=== PATIENT | male | born 1940 | race Caucasian/White ===

== ENCOUNTER → 2017-04-16 | Outpatient (CLI) | payer MEDICARE ==
[~2017-04-16] MED LIST: ALLO300T2 PO; ALLP100T PO; AMLO5TAB2; AMLO5TAB2 PO; ATEN1TAB46; ATEN25TA PO; CALC-80 PO; CEPH-507 PO; CEPH500C PO; CIPR-225 PO; CIPR1DRO2 OT; COLC0.6T53; CYAN10007 PO; CYCL-97 PO; FAMO20TA27 PO; HYDR-34; NAPR-243 PO; OMEP20CA12 PO; PANT40TA2 PO; RIVA10TA PO; TRAM50TA2 PO
[2017-04-16 10:46] LABS: BASOPHILS % (AUTO) 0 % (0-10); EOSINOPHILS # (AUTO) 0.2 10^3/uL (0.0-0.3); EOSINOPHILS % (AUTO) 2 % (0-10); LYMPHOCYTES # (AUTO) 2.1 X 10^3 (1.0-4.0); LYMPHOCYTES % (AUTO) 20 % (12-44); MEAN CORPUSCULAR HEMOGLOBIN 25 PG (25-34); MEAN CORPUSCULAR HGB CONC 29 G/DL (32-36); MEAN CORPUSCULAR VOLUME 87 FL (80-99); MEAN PLATELET VOLUME 9.1 FL (7.4-10.4); MONOCYTES # (AUTO) 0.9 X 10^3 (0.0-1.0); MONOCYTES % (AUTO) 8 % (0-12); NEUTROPHILS # (AUTO) 7.7 X 10^3 (1.8-7.8); NEUTROPHILS % (AUTO) 71 % (42-75); PLATELET COUNT 299 10^3/uL (130-400); RED CELL DISTRIBUTION WIDTH 18.5 % (10.0-14.5); RETICULOCYTE % 1.16 % (0.50-2.40); WHITE BLOOD COUNT 10.8 10^3/uL (4.3-11.0)
[2017-04-16 11:19] LABS: ANISOCYTOSIS MODERATE; BAND NEUTROPHILS 1 %; BASOPHILS % (MANUAL) 0 %; EOSINOPHILS % (MANUAL) 0 %; LYMPHOCYTES % (MANUAL) 19 %; NEUTROPHILS % (MANUAL) 76 %
[2017-04-18 08:01] LABS: %SAT TOTAL IRON BINDING CAPIC 11 L % (15-50); FOLIC ACID 6.9 NG/ML (1.5-24.0); TIBC 303 UG/DL (280-380); UIBC 269 UG/DL
== END ==
LOC: LAB 10:24
PROVIDERS: ATTEND Family Medicine
DX: D64.9 Anemia, unspecified (principal)
CPT/HCPCS: 36415; 85007; 85045

== ENCOUNTER → 2017-08-06 | Outpatient (CLI) | payer MEDICARE ==
[2017-08-06 15:23] LABS: BASOPHILS % (AUTO) 0 % (0-10); EOSINOPHILS # (AUTO) 0.1 10^3/uL (0.0-0.3); EOSINOPHILS % (AUTO) 1 % (0-10); LYMPHOCYTES # (AUTO) 1.5 X 10^3 (1.0-4.0); LYMPHOCYTES % (AUTO) 22 % (12-44); MEAN CORPUSCULAR HEMOGLOBIN 27 PG (25-34); MEAN CORPUSCULAR HGB CONC 29 G/DL (32-36); MEAN CORPUSCULAR VOLUME 91 FL (80-99); MEAN PLATELET VOLUME 10.3 FL (7.4-10.4); MONOCYTES # (AUTO) 0.7 X 10^3 (0.0-1.0); MONOCYTES % (AUTO) 11 % (0-12); NEUTROPHILS # (AUTO) 4.3 X 10^3 (1.8-7.8); NEUTROPHILS % (AUTO) 66 % (42-75); RED BLOOD COUNT 3.21 10^6/uL (4.35-5.85); RED CELL DISTRIBUTION WIDTH 18.3 % (10.0-14.5); WHITE BLOOD COUNT 6.5 10^3/uL (4.3-11.0)
[2017-08-06 15:31] LABS: PLATELET COUNT 27 10^3/uL (130-400)
== END ==
LOC: LAB 14:55
PROVIDERS: ATTEND Family Medicine
DX: D69.6 Thrombocytopenia, unspecified (principal)
CPT/HCPCS: 36415; 85025

== ENCOUNTER 2017-08-08 12:47 | Outpatient (RCR) | payer MEDICARE ==
[2017-08-02 14:59] LABS: BASOPHILS % (AUTO) 0 % (0-10); EOSINOPHILS % (AUTO) 0 % (0-10); LYMPHOCYTES # (AUTO) 1.2 X 10^3 (1.0-4.0); LYMPHOCYTES % (AUTO) 14 % (12-44); MEAN CORPUSCULAR HEMOGLOBIN 26 PG (25-34); MEAN CORPUSCULAR HGB CONC 29 G/DL (32-36); MEAN CORPUSCULAR VOLUME 89 FL (80-99); MEAN PLATELET VOLUME 10.6 FL (7.4-10.4); MONOCYTES # (AUTO) 0.7 X 10^3 (0.0-1.0); MONOCYTES % (AUTO) 8 % (0-12); NEUTROPHILS # (AUTO) 6.4 X 10^3 (1.8-7.8); NEUTROPHILS % (AUTO) 77 % (42-75); RED CELL DISTRIBUTION WIDTH 18.4 % (10.0-14.5); RETICULOCYTE % 1.68 % (0.50-2.40); WHITE BLOOD COUNT 8.3 10^3/uL (4.3-11.0)
[2017-08-02 15:02] LABS: PLATELET COUNT 27 10^3/uL (130-400)
[2017-08-02 15:19] LABS: BAND NEUTROPHILS 0 %; LYMPHOCYTES % (MANUAL) 12 %; NEUTROPHILS % (MANUAL) 83 %
[2017-08-02 15:20] LABS: ANISOCYTOSIS MARKED; BASOPHILS % (MANUAL) 0 %; EOSINOPHILS % (MANUAL) 0 %
[2017-08-02 15:27] LABS: ALANINE AMINOTRANSFERASE 9 U/L (0-55); ALBUMIN 3.4 GM/DL (3.2-4.5); ANION GAP 11 MMOL/L (5-14); ASPARTATE AMINO TRANSFERASE 16 U/L (5-34); BILIRUBIN,TOTAL 0.7 MG/DL (0.1-1.0); BLOOD UREA NITROGEN 19 MG/DL (7-18); BUN/CREATININE RATIO 17; CALCIUM 10.1 MG/DL (8.5-10.1); CARBON DIOXIDE 24 MMOL/L (21-32); CHLORIDE 103 MMOL/L (98-107); CREATININE SERUM 1.12 MG/DL (0.60-1.30); GFR ESTIMATED > 60; GLUCOSE 110 MG/DL (70-105); LACTATE DEHYDROGENASE 175 U/L (125-220); POTASSIUM 4.6 MMOL/L (3.6-5.0); SODIUM 138 MMOL/L (135-145); TOTAL PROTEIN 9.8 GM/DL (6.4-8.2)
[2017-08-02 16:05] LABS: PEP REPORT SEE PATH REPORT
[2017-08-03 02:35] LABS: LIGHT CHAIN KAPPA SERUM QUANT 14.26 mg/L (3.30-19.40); LIGHT CHAIN LAMBDA SERUM QUANT 8.78 mg/L (5.71-26.30)
[2017-08-03 07:08] LABS: IMMUNOGLOBULIN IGA 528 mg/dL (71-263); IMMUNOGLOBULIN IGG 810 mg/dL (672-1680)
[2017-08-03 10:09] LABS: IMMUNOGLOBULIN IGM 6820 mg/dL (47-209)
[2017-08-08 08:09] LABS: CLIN PATHOLOGY REPORT FOOTNOTE; SERUM PROTEIN ELEC DETAIL L-17-0011867
[2017-08-08 08:13] LABS: IMMUNOFIX PATH REPORT NUMBER Complete (Complete)
[2017-08-08 13:11] LABS: BASOPHILS % (AUTO) 0 % (0-10); EOSINOPHILS % (AUTO) 0 % (0-10); LYMPHOCYTES # (AUTO) 1.7 X 10^3 (1.0-4.0); LYMPHOCYTES % (AUTO) 24 % (12-44); MEAN CORPUSCULAR HEMOGLOBIN 26 PG (25-34); MEAN CORPUSCULAR HGB CONC 29 G/DL (32-36); MEAN CORPUSCULAR VOLUME 91 FL (80-99); MONOCYTES # (AUTO) 0.7 X 10^3 (0.0-1.0); MONOCYTES % (AUTO) 10 % (0-12); NEUTROPHILS # (AUTO) 4.6 X 10^3 (1.8-7.8); NEUTROPHILS % (AUTO) 66 % (42-75); RED BLOOD COUNT 3.22 10^6/uL (4.35-5.85); RED CELL DISTRIBUTION WIDTH 18.3 % (10.0-14.5); RETICULOCYTE % 1.86 % (0.50-2.40); WHITE BLOOD COUNT 7.1 10^3/uL (4.3-11.0)
[2017-08-08 13:16] LABS: PLATELET COUNT 26 10^3/uL (130-400)
[2017-08-08 13:40] LABS: ANISOCYTOSIS SLIGHT; BAND NEUTROPHILS 0 %; BASOPHILS % (MANUAL) 0 %; EOSINOPHILS % (MANUAL) 1 %; LYMPHOCYTES % (MANUAL) 20 %; METAMYELOCYTES % 1 %; MYELOCYTES % 1 %; NEUTROPHILS % (MANUAL) 68 %
== END 2017-08-23 10:58 | disposition home or self-care (01) ==
LOC: ONC 12:47
PROVIDERS: ATTEND Internal Medicine Hematology & Oncology
DX: D69.6 Thrombocytopenia, unspecified (principal); Z79.899 Other long term (current) drug therapy
CPT/HCPCS: 38221; 80053; 82232; 82784; 83615; 83883; 84155; 84165; 85007; 85027; 85045; 86334

== ENCOUNTER → 2017-08-09 | Outpatient (CLI) | payer MEDICARE ==
[~2017-08-09] MED LIST changes: +BARIUM SUSPENSION 2.1% (REDI-CAT 2) 450 ML PO ONE; +CATHETER FLUSH 10 ML SYR IV PRN; +IOHEXOL 350 MG/ML 150 ML (OMNIPAQUE 350) VIAL IV ONE; +NS 100 ML (IVPB) BAG IV ONE
--- NOTE | 2017-08-09 13:09 | Diagnostic Imaging Report ---
CT neck, chest, abdomen, and pelvis performed with intravenous contrast. INDICATION: Thrombocytopenia. 130 mL of Omnipaque 350 administered intravenously. FINDINGS: CT neck: The parotid and submandibular glands appear symmetric. The thyroid gland appears unremarkable. The mucosal pharyngeal space appears symmetric. There are no masses or significantly enlarged lymph nodes seen in the neck. Surgical clips in the right side of the neck are seen. The osseous structures demonstrate advanced degenerative changes. CT chest: Mild upper lobe predominant emphysema is seen. There is no significant consolidation, mass, or suspicious nodule seen. Minimal atelectasis in the right lung base is seen. There is no mediastinal mass or significantly enlarged lymph nodes. No hilar lymphadenopathy. No axillary lymphadenopathy. The thoracic aorta is normal in caliber. Prominent coronary artery calcifications in the left main and LAD and circumflex artery seen. There is no pericardial or pleural effusion. The osseous structures demonstrate prominent degenerative changes in the lower thoracic spine. CT abdomen and pelvis: The spleen is enlarged measuring 14.8 x 7.2 x 16.7 cm compared to 12.3 x 5.2 x 13.3 cm on the previous exam of 05/24/2016. The liver, the gallbladder, the pancreas, and the adrenal glands appear unremarkable. The kidneys have symmetric enhancement with contrast excretion. There is no hydronephrosis. Significant beam hardening artifact from right hip replacement obscures portions of the pelvis. There is diffuse mild soft tissue thickening around the aorta and IVC without discrete lymphadenopathy seen. This is new from 05/24/2016, exam. There is also nonspecific fat stranding in the mesenteric fat and retroperitoneal fat in the abdomen and pelvis. This could be related to an inflammatory process. The para-aortic soft tissue thickening could be sequela of prior lymphadenopathy or early retroperitoneal fibrosis. There is a 3.5 x 4.4-cm fluid collection seen in the right groin along the inguinal canal of uncertain etiology. The osseous structures demonstrate advanced degenerative changes of the lumbar spine with right convexity scoliosis. There is a lytic lesion of uncertain etiology within the femoral neck on the left side measuring 2.5 x 2.2 x 3.0 cm. IMPRESSION: CT neck: No acute process. CT chest: No acute process. CT abdomen and pelvis: 1. Moderate splenomegaly. 2. There is periaortic retroperitoneal mild soft tissue thickening. No discrete lymphadenopathy. This could be related to prior inflammation or early retroperitoneal fibrosis. At this time there is no mass effect or compression on the retroperitoneal structures. Correlate clinically and with followup exams. 3. Indeterminate radiolucent lytic area within the left femoral neck. Further evaluation with an enhanced MRI of the left hip is recommended. 4. Diverticulosis. No diverticulitis. Report was faxed to office of Dr. Mcknight @ 1:07 PM/fernando. Dictated by: Dictated on workstation # [id number]
== END ==
LOC: RAD 09:49
PROVIDERS: ATTEND Internal Medicine Hematology & Oncology
DX: R16.1 Splenomegaly, not elsewhere classified (principal); K57.30 Diverticulosis of large intestine without perforation or abscess without bleeding; M89.9 Disorder of bone, unspecified; D69.6 Thrombocytopenia, unspecified
CPT/HCPCS: 70491; 71260; 74176

== ENCOUNTER 2017-09-10 07:33 | Emergency (ER) | payer MEDICARE ==
[~2017-09-10] VITALS: Ht 170.2 cm; Wt 77.6 kg
[~2017-09-10 07:33] MED LIST changes: -BARIUM SUSPENSION 2.1% (REDI-CAT 2) 450 ML PO ONE; -CATHETER FLUSH 10 ML SYR IV PRN; -IOHEXOL 350 MG/ML 150 ML (OMNIPAQUE 350) VIAL IV ONE; -NS 100 ML (IVPB) BAG IV ONE
[2017-09-10] MEDS ORDERED: FAMOTIDINE 20MG/2ML IV (PEPCID) IVP ONE (08:00)
[2017-09-10] MEDS ORDERED: ONDANSETRON 4 MG/2 ML (SDV) Z0FRAN IVP ONE (08:00)
[2017-09-10] MEDS ORDERED: GLUCAGON EMERGENCY 1 MG/KIT IV ONE (08:00)
[2017-09-10] MEDS ORDERED: NS IV 1000 ML 1,000 ML IV SCH (08:15)
[2017-09-10 08:18] LABS: BASOPHILS % (AUTO) 0 % (0-10); EOSINOPHILS % (AUTO) 0 % (0-10); LYMPHOCYTES % (AUTO) 15 % (12-44); MEAN CORPUSCULAR HEMOGLOBIN 27 PG (25-34); MEAN CORPUSCULAR HGB CONC 29 G/DL (32-36); MEAN CORPUSCULAR VOLUME 92 FL (80-99); MEAN PLATELET VOLUME 10.7 FL (7.4-10.4); MONOCYTES # (AUTO) 0.7 X 10^3 (0.0-1.0); MONOCYTES % (AUTO) 11 % (0-12); NEUTROPHILS # (AUTO) 4.9 X 10^3 (1.8-7.8); NEUTROPHILS % (AUTO) 74 % (42-75); PLATELET COUNT 56 10^3/uL (130-400); RED BLOOD COUNT 3.82 10^6/uL (4.35-5.85); RED CELL DISTRIBUTION WIDTH 18.2 % (10.0-14.5); WHITE BLOOD COUNT 6.6 10^3/uL (4.3-11.0)
[2017-09-10 08:36] LABS: ALANINE AMINOTRANSFERASE 8 U/L (0-55); ALBUMIN 3.6 GM/DL (3.2-4.5); ANION GAP 13 MMOL/L (5-14); ASPARTATE AMINO TRANSFERASE 12 U/L (5-34); BILIRUBIN,TOTAL 0.7 MG/DL (0.1-1.0); BLOOD UREA NITROGEN 21 MG/DL (7-18); BUN/CREATININE RATIO 21; CALCIUM 10.5 MG/DL (8.5-10.1); CARBON DIOXIDE 24 MMOL/L (21-32); CHLORIDE 105 MMOL/L (98-107); CREATININE SERUM 1.01 MG/DL (0.60-1.30); GFR ESTIMATED > 60; GLUCOSE 93 MG/DL (70-105); POTASSIUM 4.4 MMOL/L (3.6-5.0); SODIUM 142 MMOL/L (135-145); TOTAL PROTEIN 9.4 GM/DL (6.4-8.2)
[2017-09-10] MEDS ORDERED: OMEP20TA7 PO (08:48)
[2017-09-10] MEDS ORDERED: SUCR1ORA5 PO (08:48)
--- NOTE | 2017-09-10 08:48 | ED GI ---
General Chief Complaint: Foreign Body Stated Complaint: SOMETHING STUCK IN THROAT Nursing Triage Note: Possible food bolus in throat Sepsis Screen: No Definite Risk Source of Information: Patient Exam Limitations: No Limitations History of Present Illness Time Seen By Provider: 07:45 Initial Comments This 76-year-old gentleman presents to emergency room with suspected esophageal foreign body. He was eating chili dogs last night when he believes a piece of hot dog became stuck. He was unable to eat or drink anything further without regurgitating. He slept through the night but then was unable to keep his pills down this morning. He presents to the ER spitting his saliva into a basin because he cannot swallow. He does have a history of esophageal stricture in the past which was dilated by Dr. Lopez last May. Patient had been previously on omeprazole but quit taking it. 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 He is nauseated but denies pain. Allergies and Home Medications Allergies Coded Allergies: prochlorperazine (Unverified Allergy, Unknown, 09/13/15) Uncoded Allergies: FISH (Allergy, Unknown, 09/13/15) Home Medications Allopurinol 300 Mg Tablet, 300 MG PO DAILY, (Reported) Amlodipine Besylate 5 Mg Tablet, 5 MG PO DAILY, (Reported) Atenolol 25 Mg Tablet, 25 MG PO DAILY, (Reported) Calcium Carbonate/Vitamin D3 1 Each Tablet, 1 TAB PO DAILY, (Reported) Omeprazole 20 Mg Tablet.dr, 20 MG PO DAILY, #30 Ref 11 Prescribed by: NAREN MUNIZ on 09/10/17 0848 Sucralfate 1 Gm/10 Ml Oral.susp, 1 GM PO QID, #1200 30 min before meals and bed. May sub pills to crush and slurry Prescribed by: NAREN MUNIZ on 09/10/17 0848 Review of Systems Constitutional: no symptoms reported EENTM: No Symptoms Reported Respiratory: No Symptoms Reported Cardiovascular: No Symptoms Reported Gastrointestinal: See HPI Genitourinary: No Symptoms Reported Musculoskeletal: no symptoms reported Skin: no symptoms reported Psychiatric/Neurological: No Symptoms Reported Endocrine: No Symptoms Reported Hematologic/Lymphatic: No Symptoms Reported Past Jetffag-Wkhujj-Xuoags Hx Patient Social History Alcohol Use: Occasionally Uses Alcohol Beverage of Choice: Beer Recreational Drug Use: No Smoking Status: Former Smoker Former Smoker, Quit: Nov 26, 1975 Recent Foreign Travel: No Contact w/Someone Who Travel: No Recent Infectious Disease Expo: No Immunizations Up To Date Tetanus Booster (TDap): Less than 5yrs Date of Pneumonia Vaccine: Dec 01, 2015 Date of Influenza Vaccine: Aug 16, 2015 Seasonal Allergies Seasonal Allergies: Yes Surgeries History of Surgeries: Yes (cataract, BACK SURGERY, KNEE/HIP TWICE, FUSED LEFT ANKLE) Surgeries: Abdominal (EGD with dilatation of distal stricture May 2016, Dr. Lopez), Ear Surgery, Joint Replacement, Orthopedic Respiratory History of Respiratory Disorde: Yes Respiratory Disorders: Asthma Cardiovascular History of Cardiac Disorders: Yes Cardiac Disorders: Hypertension Neurological History of Neurological Disord: No Reproductive System Hx Reproductive Disorders: No Sexually Transmitted Disease: No Gastrointestinal History of Gastrointestinal Di: Yes (BLEEDING ULCERS IN THE PAST) Gastrointestinal Disorders: Esophagitis (with stricture requiring dilatation. EGD with dilatation of distal stricture May 2016, Dr. Lopez), Ulcer Musculoskeletal History of Musculoskeletal Dis: No Musculoskeletal Disorders: Arthritis, Chronic Back Pain Endocrine History of Endocrine Disorders: No HEENT HEENT Disorders: Cataract Hearing Impairment: Hard of Hearing Cancer History of Cancer: Yes Cancer: Lymphoma (lymphoplasmacytic lymphoma waldenstrom's macroglobulinemia) Psychosocial History of Psychiatric Problem: No Integumentary History of Skin or Integumenta: No Blood Transfusions History of Blood Disorders: No Family Medical History Family Medial History: Glaucoma 19 MOTHER Physical Exam Vital Signs VS - Last 72 Hours, by Label 09/10/17 07:49 Temp 97.5 Pulse 72 Resp 16 B/P (MAP) 129/117 Pulse Ox 96 O2 Delivery Room Air Capillary Refill : Less Than 3 Seconds General Appearance: WD/WN, no apparent distress HEENT: PERRL/EOMI, normal ENT inspection Neck: normal inspection Respiratory: lungs clear, normal breath sounds, no respiratory distress, no accessory muscle use Cardiovascular: regular rate, rhythm, no edema, no murmur Gastrointestinal: normal bowel sounds, non tender, soft, other (spitting saliva into a basin) Extremities: normal inspection Neurologic/Psychiatric: dry end tester II-XII nml as tested, no motor/sensory deficits, alert, normal mood/affect, oriented x 3 Skin: normal color, warm/dry Progress/Results/Core Measures Results/Orders Lab Results Laboratory Tests Test 09/10/17 08:05 Range/Units White Blood Count 6.6 4.3-11.0 10^3/uL Red Blood Count 3.82 L 4.35-5.85 10^6/uL Hemoglobin 10.3 L 13.3-17.7 G/DL Hematocrit 35 L 40-54 % Mean Corpuscular Volume 92 80-99 FL Mean Corpuscular Hemoglobin 27 25-34 PG Mean Corpuscular Hemoglobin Concent 29 L 32-36 G/DL Red Cell Distribution Width 18.2 H 10.0-14.5 % Platelet Count 56 L 130-400 10^3/uL Mean Platelet Volume 10.7 H 7.4-10.4 FL Neutrophils (%) (Auto) 74 42-75 % Lymphocytes (%) (Auto) 15 12-44 % Monocytes (%) (Auto) 11 0-12 % Eosinophils (%) (Auto) 0 0-10 % Basophils (%) (Auto) 0 0-10 % Neutrophils # (Auto) 4.9 1.8-7.8 X 10^3 Lymphocytes # (Auto) 1.0 1.0-4.0 X 10^3 Monocytes # (Auto) 0.7 0.0-1.0 X 10^3 Eosinophils # (Auto) 0.0 0.0-0.3 10^3/uL Basophils # (Auto) 0.0 0.0-0.1 10^3/uL Sodium Level 142 135-145 MMOL/L Potassium Level 4.4 3.6-5.0 MMOL/L Chloride Level 105 98-107 MMOL/L Carbon Dioxide Level 24 21-32 MMOL/L Anion Gap 13 5-14 MMOL/L Blood Urea Nitrogen 21 H 7-18 MG/DL Creatinine 1.01 0.60-1.30 MG/DL Estimat Glomerular Filtration Rate > 60 BUN/Creatinine Ratio 21 Glucose Level 93 70-105 MG/DL Calcium Level 10.5 H 8.5-10.1 MG/DL Total Bilirubin 0.7 0.1-1.0 MG/DL Aspartate Amino Transf (AST/SGOT) 12 5-34 U/L Alanine Aminotransferase (ALT/SGPT) 8 0-55 U/L Alkaline Phosphatase 103 40-136 U/L Total Protein 9.4 H 6.4-8.2 GM/DL Albumin 3.6 3.2-4.5 GM/DL My Orders Orders - BRUEGGEMANN,NAREN T MD Cbc With Automated Diff (09/10/17 07:59) Comprehensive Metabolic Panel (09/10/17 07:59) Saline Lock/Iv-Start (09/10/17 07:59) Famotidine Injection (Pepcid Injection) (09/10/17 08:00) Ondansetron Injection (Zofran Injectio (09/10/17 08:00) Glucagon Emergency Kit (Glucagon Emergen (09/10/17 08:00) Ns Iv 1000 Ml (Sodium Chloride 0.9%) (09/10/17 08:15) Medications Given in ED Current Medications Medications Dose Ordered Sig/Pelon Route Start Time Stop Time Status Last Admin Dose Admin Famotidine 20 mg ONCE ONCE IVP 09/10/17 08:00 09/10/17 08:03 DC 09/10/17 08:24 20 MG Glucagon 1 mg ONCE ONCE IV 09/10/17 08:00 09/10/17 08:03 DC 09/10/17 08:24 1 MG Ondansetron HCl 4 mg ONCE ONCE IVP 09/10/17 08:00 09/10/17 08:03 DC 09/10/17 08:24 4 MG Vital Signs/I&O Vital Sign - Last 12Hours 09/10/17 07:49 Temp 97.5 Pulse 72 Resp 16 B/P (MAP) 129/117 Pulse Ox 96 O2 Delivery Room Air Blood Pressure Mean: 121 Progress Note : Progress Note IV was established and patient was treated with Pepcid, Zofran, and glucagon. Dr. Lopez had planned to keep him for endoscopy but patient had success with glucagon. He was able to drink water without any difficulty after the bolus passed. Dr. Lopez gave him the option to stay to be worked into the schedule for endoscopy. Patient wishes to go home. He will restart PPI therapy and initiate Carafate per Dr. LOPEZ's instructions. He will follow-up with Dr. Loepz in the office. Departure Impression Impression: Primary Impression: Esophageal foreign body Qualified Codes: T18.108A - Unspecified foreign body in esophagus causing other injury, initial encounter Additional Impression: Esophageal stricture Disposition: 01 HOME, SELF-CARE Condition: Improved Departure-Patient Inst. Decision time for Depature: 08:43 Referrals: ANGEL ZARATE DO (PCP/Family) Primary Care Physician KRISTIE LOPEZ MD Patient Instructions: Esophageal Stricture Add. Discharge Instructions: Start taking omeprazole 20 mg daily. Continue this until otherwise instructed by your doctor. Also take Carafate as prescribed 30 minutes before meals and before bedtime. You may use the liquid form of Carafate or crush pills to make a slurry. Follow-up with Dr. Lopez in his office. Return to care if you have further problems. Consume a clear liquid diet today which may include foods such as Jell-O, broth, juices, etc. Tomorrow advance your diet as tolerated. Eat primarily soft foods that are easy to chew. Chew food thoroughly before swallowing. Drink plenty of water during your meals. All discharge instructions reviewed with patient and/or family. Voiced understanding. Scripts Sucralfate (Carafate) 1 Gm/10 Ml Oral.susp 1 GM PO QID, #1200 ML 30 min before meals and bed. May sub pills to crush and slurry Prov: NAREN BARNETT MD 09/10/17 Omeprazole (Omeprazole) 20 Mg Tablet. 20 MG PO DAILY, #30 TAB 11 Refills Prov: NAREN BARNETT MD 09/10/17 Copy Copies To 1: KRISTIE LOPEZ MD, JOSHUA T MD Sep 10, 2017 08:48
[2017-09-10 09:05] VITALS: BP 132/80
== END 2017-09-10 09:01 | disposition home or self-care (01) ==
LOC: EDUNIT# 07:33 → ER 07:35
DX: T18.128A Food in esophagus causing other injury, initial encounter (principal); K22.2 Esophageal obstruction; C83.00 Small cell B-cell lymphoma, unspecified site; C88.0 Waldenstrom macroglobulinemia; I10 Essential (primary) hypertension; J45.909 Unspecified asthma, uncomplicated; Z87.891 Personal history of nicotine dependence
CPT/HCPCS: 36415; 80053; 85025

== ENCOUNTER 2017-11-21 08:48 | Outpatient (RCR) | payer MEDICARE ==
[2017-09-26 10:18] LABS: BASOPHILS % (AUTO) 0 % (0-10); EOSINOPHILS % (AUTO) 0 % (0-10); HEMATOCRIT 31 % (40-54); HEMOGLOBIN 9.2 G/DL (13.3-17.7); LYMPHOCYTES % (AUTO) 19 % (12-44); MEAN CORPUSCULAR HEMOGLOBIN 27 PG (25-34); MEAN CORPUSCULAR HGB CONC 30 G/DL (32-36); MEAN CORPUSCULAR VOLUME 91 FL (80-99); MEAN PLATELET VOLUME 10.9 FL (7.4-10.4); MONOCYTES # (AUTO) 0.9 X 10^3 (0.0-1.0); MONOCYTES % (AUTO) 16 % (0-12); NEUTROPHILS # (AUTO) 3.4 X 10^3 (1.8-7.8); NEUTROPHILS % (AUTO) 64 % (42-75); PLATELET COUNT 82 10^3/uL (130-400); RED BLOOD COUNT 3.36 10^6/uL (4.35-5.85); RED CELL DISTRIBUTION WIDTH 16.9 % (10.0-14.5); WHITE BLOOD COUNT 5.3 10^3/uL (4.3-11.0)
[2017-09-26 10:39] LABS: ALANINE AMINOTRANSFERASE 10 U/L (0-55); ALBUMIN 3.3 GM/DL (3.2-4.5); ALKALINE PHOSPHATASE 108 U/L (40-136); BILIRUBIN,TOTAL 0.5 MG/DL (0.1-1.0); BUN/CREATININE RATIO 15; CALCIUM 9.4 MG/DL (8.5-10.1); CARBON DIOXIDE 23 MMOL/L (21-32); CHLORIDE 104 MMOL/L (98-107); CREATININE SERUM 0.94 MG/DL (0.60-1.30); GFR ESTIMATED > 60; GLUCOSE 95 MG/DL (70-105); POTASSIUM 4.5 MMOL/L (3.6-5.0); SODIUM 137 MMOL/L (135-145); TOTAL PROTEIN 7.5 GM/DL (6.4-8.2)
[2017-10-03 09:18] LABS: BASOPHILS % (AUTO) 0 % (0-10); EOSINOPHILS % (AUTO) 0 % (0-10); HEMATOCRIT 34 % (40-54); HEMOGLOBIN 10.4 G/DL (13.3-17.7); LYMPHOCYTES % (AUTO) 19 % (12-44); MEAN CORPUSCULAR HEMOGLOBIN 27 PG (25-34); MEAN CORPUSCULAR HGB CONC 30 G/DL (32-36); MEAN CORPUSCULAR VOLUME 90 FL (80-99); MEAN PLATELET VOLUME 10.2 FL (7.4-10.4); MONOCYTES # (AUTO) 0.7 X 10^3 (0.0-1.0); MONOCYTES % (AUTO) 14 % (0-12); NEUTROPHILS # (AUTO) 3.4 X 10^3 (1.8-7.8); NEUTROPHILS % (AUTO) 67 % (42-75); PLATELET COUNT 164 10^3/uL (130-400); RED BLOOD COUNT 3.79 10^6/uL (4.35-5.85); RED CELL DISTRIBUTION WIDTH 16.7 % (10.0-14.5); WHITE BLOOD COUNT 5.1 10^3/uL (4.3-11.0)
[2017-10-03 09:40] LABS: BUN/CREATININE RATIO 17; CALCIUM 9.6 MG/DL (8.5-10.1); CARBON DIOXIDE 26 MMOL/L (21-32); CHLORIDE 104 MMOL/L (98-107); CREATININE SERUM 0.89 MG/DL (0.60-1.30); GFR ESTIMATED > 60; GLUCOSE 91 MG/DL (70-105); POTASSIUM 4.1 MMOL/L (3.6-5.0); SODIUM 139 MMOL/L (135-145)
[2017-10-10 09:16] LABS: BASOPHILS % (AUTO) 0 % (0-10); EOSINOPHILS % (AUTO) 0 % (0-10); HEMATOCRIT 36 % (40-54); LYMPHOCYTES # (AUTO) 1.1 X 10^3 (1.0-4.0); LYMPHOCYTES % (AUTO) 20 % (12-44); MEAN CORPUSCULAR HEMOGLOBIN 27 PG (25-34); MEAN CORPUSCULAR HGB CONC 31 G/DL (32-36); MEAN CORPUSCULAR VOLUME 90 FL (80-99); MEAN PLATELET VOLUME 10.8 FL (7.4-10.4); MONOCYTES # (AUTO) 0.7 X 10^3 (0.0-1.0); MONOCYTES % (AUTO) 12 % (0-12); NEUTROPHILS # (AUTO) 3.7 X 10^3 (1.8-7.8); NEUTROPHILS % (AUTO) 68 % (42-75); PLATELET COUNT 163 10^3/uL (130-400); RED BLOOD COUNT 4.03 10^6/uL (4.35-5.85); RED CELL DISTRIBUTION WIDTH 16.4 % (10.0-14.5); WHITE BLOOD COUNT 5.5 10^3/uL (4.3-11.0)
[2017-10-10 09:33] LABS: BUN/CREATININE RATIO 14; CALCIUM 9.5 MG/DL (8.5-10.1); CARBON DIOXIDE 25 MMOL/L (21-32); CHLORIDE 104 MMOL/L (98-107); GFR ESTIMATED > 60; GLUCOSE 98 MG/DL (70-105); POTASSIUM 4.5 MMOL/L (3.6-5.0); SODIUM 138 MMOL/L (135-145)
[2017-10-17 09:26] LABS: BASOPHILS % (AUTO) 0 % (0-10); EOSINOPHILS % (AUTO) 0 % (0-10); HEMATOCRIT 37 % (40-54); HEMOGLOBIN 11.4 G/DL (13.3-17.7); LYMPHOCYTES # (AUTO) 0.9 X 10^3 (1.0-4.0); LYMPHOCYTES % (AUTO) 15 % (12-44); MEAN CORPUSCULAR HEMOGLOBIN 28 PG (25-34); MEAN CORPUSCULAR HGB CONC 31 G/DL (32-36); MEAN CORPUSCULAR VOLUME 90 FL (80-99); MEAN PLATELET VOLUME 10.3 FL (7.4-10.4); MONOCYTES # (AUTO) 0.7 X 10^3 (0.0-1.0); MONOCYTES % (AUTO) 12 % (0-12); NEUTROPHILS # (AUTO) 4.2 X 10^3 (1.8-7.8); NEUTROPHILS % (AUTO) 73 % (42-75); PLATELET COUNT 157 10^3/uL (130-400); RED BLOOD COUNT 4.13 10^6/uL (4.35-5.85); WHITE BLOOD COUNT 5.7 10^3/uL (4.3-11.0)
[2017-10-17 09:40] LABS: BUN/CREATININE RATIO 18; CALCIUM 9.8 MG/DL (8.5-10.1); CARBON DIOXIDE 25 MMOL/L (21-32); CHLORIDE 104 MMOL/L (98-107); CREATININE SERUM 0.91 MG/DL (0.60-1.30); GFR ESTIMATED > 60; GLUCOSE 98 MG/DL (70-105); POTASSIUM 4.4 MMOL/L (3.6-5.0); SODIUM 140 MMOL/L (135-145)
[2017-10-24 14:51] LABS: BASOPHILS % (AUTO) 0 % (0-10); EOSINOPHILS # (AUTO) 0.1 10^3/uL (0.0-0.3); EOSINOPHILS % (AUTO) 1 % (0-10); HEMATOCRIT 39 % (40-54); HEMOGLOBIN 11.8 G/DL (13.3-17.7); LYMPHOCYTES # (AUTO) 1.4 X 10^3 (1.0-4.0); LYMPHOCYTES % (AUTO) 22 % (12-44); MEAN CORPUSCULAR HEMOGLOBIN 28 PG (25-34); MEAN CORPUSCULAR HGB CONC 31 G/DL (32-36); MEAN CORPUSCULAR VOLUME 90 FL (80-99); MEAN PLATELET VOLUME 9.3 FL (7.4-10.4); MONOCYTES # (AUTO) 0.7 X 10^3 (0.0-1.0); MONOCYTES % (AUTO) 12 % (0-12); NEUTROPHILS # (AUTO) 4.1 X 10^3 (1.8-7.8); NEUTROPHILS % (AUTO) 65 % (42-75); PLATELET COUNT 321 10^3/uL (130-400); RED BLOOD COUNT 4.27 10^6/uL (4.35-5.85); RED CELL DISTRIBUTION WIDTH 16.1 % (10.0-14.5); WHITE BLOOD COUNT 6.3 10^3/uL (4.3-11.0)
[2017-10-24 15:20] LABS: ALANINE AMINOTRANSFERASE 9 U/L (0-55); ALBUMIN 3.7 GM/DL (3.2-4.5); ALKALINE PHOSPHATASE 106 U/L (40-136); BILIRUBIN,TOTAL 0.5 MG/DL (0.1-1.0); BUN/CREATININE RATIO 14; CALCIUM 10.3 MG/DL (8.5-10.1); CARBON DIOXIDE 31 MMOL/L (21-32); CHLORIDE 100 MMOL/L (98-107); CREATININE SERUM 1.01 MG/DL (0.60-1.30); GFR ESTIMATED > 60; GLUCOSE 92 MG/DL (70-105); POTASSIUM 5.5 MMOL/L (3.6-5.0); SODIUM 138 MMOL/L (135-145); TOTAL PROTEIN 8.6 GM/DL (6.4-8.2)
[2017-10-26 09:28] LABS: BUN/CREATININE RATIO 16; CALCIUM 8.6 MG/DL (8.5-10.1); CARBON DIOXIDE 27 MMOL/L (21-32); CHLORIDE 104 MMOL/L (98-107); CREATININE SERUM 1.02 MG/DL (0.60-1.30); GFR ESTIMATED > 60; GLUCOSE 77 MG/DL (70-105); POTASSIUM 4.6 MMOL/L (3.6-5.0); SODIUM 139 MMOL/L (135-145)
[2017-10-31 09:41] LABS: BASOPHILS % (AUTO) 0 % (0-10); EOSINOPHILS % (AUTO) 0 % (0-10); HEMATOCRIT 39 % (40-54); LYMPHOCYTES # (AUTO) 1.3 X 10^3 (1.0-4.0); LYMPHOCYTES % (AUTO) 26 % (12-44); MEAN CORPUSCULAR HEMOGLOBIN 29 PG (25-34); MEAN CORPUSCULAR HGB CONC 31 G/DL (32-36); MEAN CORPUSCULAR VOLUME 92 FL (80-99); MEAN PLATELET VOLUME 9.8 FL (7.4-10.4); MONOCYTES # (AUTO) 0.7 X 10^3 (0.0-1.0); MONOCYTES % (AUTO) 15 % (0-12); NEUTROPHILS # (AUTO) 2.9 X 10^3 (1.8-7.8); NEUTROPHILS % (AUTO) 60 % (42-75); PLATELET COUNT 178 10^3/uL (130-400); RED BLOOD COUNT 4.21 10^6/uL (4.35-5.85); RED CELL DISTRIBUTION WIDTH 16.2 % (10.0-14.5); WHITE BLOOD COUNT 4.9 10^3/uL (4.3-11.0)
[2017-10-31 09:59] LABS: BUN/CREATININE RATIO 16; CARBON DIOXIDE 29 MMOL/L (21-32); CHLORIDE 103 MMOL/L (98-107); CREATININE SERUM 0.93 MG/DL (0.60-1.30); GFR ESTIMATED > 60; GLUCOSE 96 MG/DL (70-105); POTASSIUM 5.5 MMOL/L (3.6-5.0); SODIUM 139 MMOL/L (135-145)
[2017-11-07 09:39] LABS: BASOPHILS % (AUTO) 0 % (0-10); EOSINOPHILS % (AUTO) 1 % (0-10); HEMATOCRIT 42 % (40-54); LYMPHOCYTES # (AUTO) 1.7 X 10^3 (1.0-4.0); LYMPHOCYTES % (AUTO) 25 % (12-44); MEAN CORPUSCULAR HEMOGLOBIN 28 PG (25-34); MEAN CORPUSCULAR HGB CONC 31 G/DL (32-36); MEAN CORPUSCULAR VOLUME 92 FL (80-99); MEAN PLATELET VOLUME 10.1 FL (7.4-10.4); MONOCYTES # (AUTO) 0.8 X 10^3 (0.0-1.0); MONOCYTES % (AUTO) 11 % (0-12); NEUTROPHILS # (AUTO) 4.4 X 10^3 (1.8-7.8); NEUTROPHILS % (AUTO) 63 % (42-75); PLATELET COUNT 233 10^3/uL (130-400); RED BLOOD COUNT 4.59 10^6/uL (4.35-5.85); RED CELL DISTRIBUTION WIDTH 16.1 % (10.0-14.5); WHITE BLOOD COUNT 6.9 10^3/uL (4.3-11.0)
[2017-11-07 10:02] LABS: BUN/CREATININE RATIO 14; CALCIUM 10.3 MG/DL (8.5-10.1); CARBON DIOXIDE 29 MMOL/L (21-32); CHLORIDE 100 MMOL/L (98-107); CREATININE SERUM 0.96 MG/DL (0.60-1.30); GFR ESTIMATED > 60; GLUCOSE 77 MG/DL (70-105); POTASSIUM 4.3 MMOL/L (3.6-5.0); SODIUM 139 MMOL/L (135-145)
[2017-11-14 09:27] LABS: BASOPHILS % (AUTO) 0 % (0-10); EOSINOPHILS # (AUTO) 0.1 10^3/uL (0.0-0.3); EOSINOPHILS % (AUTO) 1 % (0-10); HEMATOCRIT 38 % (40-54); HEMOGLOBIN 11.7 G/DL (13.3-17.7); LYMPHOCYTES # (AUTO) 1.9 X 10^3 (1.0-4.0); LYMPHOCYTES % (AUTO) 31 % (12-44); MEAN CORPUSCULAR HEMOGLOBIN 29 PG (25-34); MEAN CORPUSCULAR HGB CONC 31 G/DL (32-36); MEAN CORPUSCULAR VOLUME 93 FL (80-99); MEAN PLATELET VOLUME 9.9 FL (7.4-10.4); MONOCYTES # (AUTO) 0.6 X 10^3 (0.0-1.0); MONOCYTES % (AUTO) 10 % (0-12); NEUTROPHILS # (AUTO) 3.4 X 10^3 (1.8-7.8); NEUTROPHILS % (AUTO) 57 % (42-75); PLATELET COUNT 195 10^3/uL (130-400); RED BLOOD COUNT 4.06 10^6/uL (4.35-5.85); RED CELL DISTRIBUTION WIDTH 15.9 % (10.0-14.5)
[2017-11-14 09:55] LABS: BUN/CREATININE RATIO 20; CALCIUM 9.5 MG/DL (8.5-10.1); CARBON DIOXIDE 28 MMOL/L (21-32); CHLORIDE 105 MMOL/L (98-107); CREATININE SERUM 0.82 MG/DL (0.60-1.30); GFR ESTIMATED > 60; GLUCOSE 88 MG/DL (70-105); POTASSIUM 4.4 MMOL/L (3.6-5.0); SODIUM 140 MMOL/L (135-145)
[~2017-11-21] VITALS: Ht 163.8 cm; Wt 77.6 kg
[~2017-11-21 08:48] MED LIST changes: +ACETAMINOPHEN 325 MG TAB (TYLENOL) CANCER CTR ONE; +ACETAMINOPHEN 325 MG TAB (TYLENOL) CANCER CTR PO PRN; +BORTEZOMIB 3.5 MG VELCADE SC SCH; +BORTEZOMIB IV SCH; +MEPERIDINE (DEMEROL) INJ 50 MG/ML CANCER CTR IV PRN; +NS IV 500 ML (CANCER CENTER) IV SCH; +OMEP20TA7 PO; +ONDANSETRON MDV (CANCER CENTER 8 MG, DEXAMETHASONE INJ (CANCER CTR) 4 MG in NS (IVPB) C... IV SCH; +ONDANSETRON MDV (CANCER CENTER 8 MG, DEXAMETHASONE PF INJ (CANCER C 10 MG in NS (IVPB) ... IV SCH; +SUCR1ORA5 PO; +diphenhydrAMINE 50 MG/ML INJ (CANCER CENTER) IV SCH; +diphenhydrAMINE 50 MG/ML INJ (CANCER CENTER) ONE; +riTUXimab 500 MG, riTUXimab FOR IV INJ CONC 200 MG in NS (IVPB) CANCER CENTER 163 ML IV SCH
[2017-11-21 09:04] LABS: BASOPHILS % (AUTO) 0 % (0-10); EOSINOPHILS % (AUTO) 1 % (0-10); HEMATOCRIT 42 % (40-54); HEMOGLOBIN 13.1 G/DL (13.3-17.7); LYMPHOCYTES % (AUTO) 31 % (12-44); MEAN CORPUSCULAR HEMOGLOBIN 29 PG (25-34); MEAN CORPUSCULAR HGB CONC 31 G/DL (32-36); MEAN CORPUSCULAR VOLUME 94 FL (80-99); MEAN PLATELET VOLUME 9.8 FL (7.4-10.4); MONOCYTES % (AUTO) 8 % (0-12); NEUTROPHILS # (AUTO) 3.4 X 10^3 (1.8-7.8); NEUTROPHILS % (AUTO) 60 % (42-75); PLATELET COUNT 208 10^3/uL (130-400); RED BLOOD COUNT 4.53 10^6/uL (4.35-5.85); WHITE BLOOD COUNT 5.7 10^3/uL (4.3-11.0)
[2017-11-21 09:05] LABS: EOSINOPHILS # (AUTO) 0.1 10^3/uL (0.0-0.3); LYMPHOCYTES # (AUTO) 1.8 X 10^3 (1.0-4.0); MONOCYTES # (AUTO) 0.5 X 10^3 (0.0-1.0)
[2017-11-21 09:24] LABS: ALANINE AMINOTRANSFERASE 11 U/L (0-55); ALBUMIN 3.9 GM/DL (3.2-4.5); ALKALINE PHOSPHATASE 99 U/L (40-136); BILIRUBIN,TOTAL 0.6 MG/DL (0.1-1.0); BUN/CREATININE RATIO 14; CALCIUM 10.1 MG/DL (8.5-10.1); CARBON DIOXIDE 28 MMOL/L (21-32); CHLORIDE 103 MMOL/L (98-107); CREATININE SERUM 0.99 MG/DL (0.60-1.30); GFR ESTIMATED > 60; GLUCOSE 99 MG/DL (70-105); POTASSIUM 4.1 MMOL/L (3.6-5.0); SODIUM 142 MMOL/L (135-145); TOTAL PROTEIN 8.6 GM/DL (6.4-8.2)
== END 2017-12-05 09:19 | disposition home or self-care (01) ==
LOC: ONC 08:48
PROVIDERS: ATTEND Internal Medicine Hematology & Oncology
DX: Z51.11 Encounter for antineoplastic chemotherapy (principal); C88.0 Waldenstrom macroglobulinemia; D64.9 Anemia, unspecified; I10 Essential (primary) hypertension; Z87.891 Personal history of nicotine dependence; Z79.899 Other long term (current) drug therapy
CPT/HCPCS: 36415; 80048; 80053; 82232; 83615; 85025; 96375; 96401; 96409; 96411; 96413; 96415; 99213

== ENCOUNTER 2018-02-07 08:45 | Outpatient (RCR) | payer MEDICARE ==
[2017-12-05 10:18] LABS: BASOPHILS % (AUTO) 0 % (0-10); EOSINOPHILS # (AUTO) 0.1 10^3/uL (0.0-0.3); EOSINOPHILS % (AUTO) 1 % (0-10); HEMATOCRIT 40 % (40-54); HEMOGLOBIN 12.7 G/DL (13.3-17.7); LYMPHOCYTES # (AUTO) 2.2 X 10^3 (1.0-4.0); LYMPHOCYTES % (AUTO) 32 % (12-44); MEAN CORPUSCULAR HEMOGLOBIN 30 PG (25-34); MEAN CORPUSCULAR HGB CONC 32 G/DL (32-36); MEAN CORPUSCULAR VOLUME 93 FL (80-99); MEAN PLATELET VOLUME 10.1 FL (7.4-10.4); MONOCYTES # (AUTO) 0.8 X 10^3 (0.0-1.0); MONOCYTES % (AUTO) 12 % (0-12); NEUTROPHILS # (AUTO) 3.9 X 10^3 (1.8-7.8); NEUTROPHILS % (AUTO) 56 % (42-75); PLATELET COUNT 222 10^3/uL (130-400); RED BLOOD COUNT 4.24 10^6/uL (4.35-5.85); RED CELL DISTRIBUTION WIDTH 15.5 % (10.0-14.5)
[2017-12-20 09:52] LABS: BASOPHILS % (AUTO) 0 % (0-10); EOSINOPHILS # (AUTO) 0.1 10^3/uL (0.0-0.3); EOSINOPHILS % (AUTO) 1 % (0-10); HEMATOCRIT 41 % (40-54); HEMOGLOBIN 13.5 G/DL (13.3-17.7); LYMPHOCYTES # (AUTO) 1.8 X 10^3 (1.0-4.0); LYMPHOCYTES % (AUTO) 29 % (12-44); MEAN CORPUSCULAR HEMOGLOBIN 31 PG (25-34); MEAN CORPUSCULAR HGB CONC 33 G/DL (32-36); MEAN CORPUSCULAR VOLUME 93 FL (80-99); MEAN PLATELET VOLUME 9.8 FL (7.4-10.4); MONOCYTES # (AUTO) 0.7 X 10^3 (0.0-1.0); MONOCYTES % (AUTO) 12 % (0-12); NEUTROPHILS # (AUTO) 3.6 X 10^3 (1.8-7.8); NEUTROPHILS % (AUTO) 58 % (42-75); PLATELET COUNT 235 10^3/uL (130-400); RED BLOOD COUNT 4.43 10^6/uL (4.35-5.85); RED CELL DISTRIBUTION WIDTH 15.1 % (10.0-14.5); WHITE BLOOD COUNT 6.2 10^3/uL (4.3-11.0)
[2017-12-20 10:10] LABS: ALANINE AMINOTRANSFERASE 12 U/L (0-55); ALBUMIN 3.8 GM/DL (3.2-4.5); ALKALINE PHOSPHATASE 106 U/L (40-136); BILIRUBIN,TOTAL 0.6 MG/DL (0.1-1.0); BUN/CREATININE RATIO 17; CALCIUM 9.8 MG/DL (8.5-10.1); CARBON DIOXIDE 26 MMOL/L (21-32); CHLORIDE 104 MMOL/L (98-107); CREATININE SERUM 0.98 MG/DL (0.60-1.30); GFR ESTIMATED > 60; GLUCOSE 91 MG/DL (70-105); POTASSIUM 4.4 MMOL/L (3.6-5.0); SODIUM 141 MMOL/L (135-145); TOTAL PROTEIN 8.6 GM/DL (6.4-8.2)
[~2018-02-07 08:45] MED LIST changes: -ACETAMINOPHEN 325 MG TAB (TYLENOL) CANCER CTR ONE; -ACETAMINOPHEN 325 MG TAB (TYLENOL) CANCER CTR PO PRN; -BORTEZOMIB 3.5 MG VELCADE SC SCH; -BORTEZOMIB IV SCH; -MEPERIDINE (DEMEROL) INJ 50 MG/ML CANCER CTR IV PRN; -NS IV 500 ML (CANCER CENTER) IV SCH; -ONDANSETRON MDV (CANCER CENTER 8 MG, DEXAMETHASONE INJ (CANCER CTR) 4 MG in NS (IVPB) C... IV SCH; -ONDANSETRON MDV (CANCER CENTER 8 MG, DEXAMETHASONE PF INJ (CANCER C 10 MG in NS (IVPB) ... IV SCH; -diphenhydrAMINE 50 MG/ML INJ (CANCER CENTER) IV SCH; -diphenhydrAMINE 50 MG/ML INJ (CANCER CENTER) ONE; -riTUXimab 500 MG, riTUXimab FOR IV INJ CONC 200 MG in NS (IVPB) CANCER CENTER 163 ML IV SCH
[2018-02-07 08:57] LABS: BASOPHILS % (AUTO) 0 % (0-10); EOSINOPHILS # (AUTO) 0.1 10^3/uL (0.0-0.3); EOSINOPHILS % (AUTO) 1 % (0-10); HEMATOCRIT 42 % (40-54); HEMOGLOBIN 14.1 G/DL (13.3-17.7); LYMPHOCYTES # (AUTO) 1.7 X 10^3 (1.0-4.0); LYMPHOCYTES % (AUTO) 21 % (12-44); MEAN CORPUSCULAR HEMOGLOBIN 31 PG (25-34); MEAN CORPUSCULAR HGB CONC 33 G/DL (32-36); MEAN CORPUSCULAR VOLUME 94 FL (80-99); MEAN PLATELET VOLUME 9.6 FL (7.4-10.4); MONOCYTES % (AUTO) 13 % (0-12); NEUTROPHILS # (AUTO) 5.1 X 10^3 (1.8-7.8); NEUTROPHILS % (AUTO) 65 % (42-75); PLATELET COUNT 274 10^3/uL (130-400); RED BLOOD COUNT 4.51 10^6/uL (4.35-5.85); RED CELL DISTRIBUTION WIDTH 14.2 % (10.0-14.5); WHITE BLOOD COUNT 7.8 10^3/uL (4.3-11.0)
[2018-02-07 09:14] LABS: ALBUMIN 4.1 GM/DL (3.2-4.5); BILIRUBIN,TOTAL 0.8 MG/DL (0.1-1.0); CALCIUM 10.2 MG/DL (8.5-10.1); CREATININE SERUM 1.19 MG/DL (0.60-1.30); TOTAL PROTEIN 8.8 GM/DL (6.4-8.2)
== END 2018-03-05 | disposition home or self-care (01) ==
LOC: ONC 08:45
PROVIDERS: ATTEND Internal Medicine Hematology & Oncology
DX: C88.0 Waldenstrom macroglobulinemia (principal); D64.9 Anemia, unspecified; I10 Essential (primary) hypertension; Z87.891 Personal history of nicotine dependence; Z79.899 Other long term (current) drug therapy
CPT/HCPCS: 36415; 80053; 82232; 82784; 85025; 99213

== ENCOUNTER 2018-04-17 08:18 | Outpatient (RCR) | payer MEDICARE ==
[2018-03-27 09:08] LABS: BASOPHILS % (AUTO) 0 % (0-10); EOSINOPHILS # (AUTO) 0.1 10^3/uL (0.0-0.3); EOSINOPHILS % (AUTO) 1 % (0-10); HEMATOCRIT 40 % (40-54); HEMOGLOBIN 13.3 G/DL (13.3-17.7); LYMPHOCYTES # (AUTO) 1.7 X 10^3 (1.0-4.0); LYMPHOCYTES % (AUTO) 26 % (12-44); MEAN CORPUSCULAR HEMOGLOBIN 32 PG (25-34); MEAN CORPUSCULAR HGB CONC 33 G/DL (32-36); MEAN CORPUSCULAR VOLUME 96 FL (80-99); MEAN PLATELET VOLUME 9.9 FL (7.4-10.4); MONOCYTES # (AUTO) 0.8 X 10^3 (0.0-1.0); MONOCYTES % (AUTO) 12 % (0-12); NEUTROPHILS # (AUTO) 4.1 X 10^3 (1.8-7.8); NEUTROPHILS % (AUTO) 62 % (42-75); PLATELET COUNT 232 10^3/uL (130-400); RED BLOOD COUNT 4.17 10^6/uL (4.35-5.85); WHITE BLOOD COUNT 6.6 10^3/uL (4.3-11.0)
[2018-03-27 09:25] LABS: ALANINE AMINOTRANSFERASE 10 U/L (0-55); ALKALINE PHOSPHATASE 106 U/L (40-136); BILIRUBIN,TOTAL 0.6 MG/DL (0.1-1.0); BUN/CREATININE RATIO 15; CARBON DIOXIDE 28 MMOL/L (21-32); CHLORIDE 105 MMOL/L (98-107); CREATININE SERUM 0.96 MG/DL (0.60-1.30); GFR ESTIMATED > 60; GLUCOSE 89 MG/DL (70-105); POTASSIUM 4.9 MMOL/L (3.6-5.0); SODIUM 141 MMOL/L (135-145)
[~2018-04-17] VITALS: Ht 163.8 cm; Wt 81.2 kg
[~2018-04-17 08:18] MED LIST changes: +ACETAMINOPHEN 325 MG TAB (TYLENOL) CANCER CTR PO PRN; +ACETAMINOPHEN 500 MG TAB (TYLENOL) CANCER CTR ONE; +ACETAMINOPHEN 500 MG TAB (TYLENOL) CANCER CTR PO PRN; +NS IV 500 ML (CANCER CENTER) IV SCH; +diphenhydrAMINE 25 MG TAB (BENADRYL) CANCER CENTER PO ONE; +diphenhydrAMINE 25 MG TAB (BENADRYL) CANCER CENTER PO SCH; +diphenhydrAMINE 50 MG/ML INJ (CANCER CENTER) IV SCH; +riTUXimab 500 MG, riTUXimab FOR IV INJ CONC 200 MG in NS (IVPB) CANCER CENTER 163 ML IV SCH
== END 2018-06-25 | disposition home or self-care (01) ==
LOC: ONC 08:18
PROVIDERS: ATTEND Internal Medicine Hematology & Oncology
DX: Z51.11 Encounter for antineoplastic chemotherapy (principal); C88.0 Waldenstrom macroglobulinemia; D64.9 Anemia, unspecified; I10 Essential (primary) hypertension; Z87.891 Personal history of nicotine dependence; Z79.899 Other long term (current) drug therapy
CPT/HCPCS: 80053; 82232; 82784; 85025; 96413; 96415

== ENCOUNTER → 2018-05-24 | Outpatient (CLI) | payer MEDICARE ==
[~2018-05-24] MED LIST changes: -ACETAMINOPHEN 325 MG TAB (TYLENOL) CANCER CTR PO PRN; -ACETAMINOPHEN 500 MG TAB (TYLENOL) CANCER CTR ONE; -ACETAMINOPHEN 500 MG TAB (TYLENOL) CANCER CTR PO PRN; +CATHETER FLUSH 10 ML SYR IV PRN; +IOHEXOL 350 MG/ML 100 ML (OMNIPAQUE 350) VIAL IV ONE; +NS 250 ML (IVPB) BAG IV ONE; -NS IV 500 ML (CANCER CENTER) IV SCH; +RECEIVED CONTRAST (Hold Metformin) IV SCH; -diphenhydrAMINE 25 MG TAB (BENADRYL) CANCER CENTER PO ONE; -diphenhydrAMINE 25 MG TAB (BENADRYL) CANCER CENTER PO SCH; -diphenhydrAMINE 50 MG/ML INJ (CANCER CENTER) IV SCH; -riTUXimab 500 MG, riTUXimab FOR IV INJ CONC 200 MG in NS (IVPB) CANCER CENTER 163 ML IV SCH
[2018-05-24 09:03] LABS: HEMOGLOBIN 13.8 G/DL (13.3-17.7); RED BLOOD COUNT 4.4 10^6/uL (4.35-5.85); RED CELL DISTRIBUTION WIDTH 13.7 % (10.0-14.5); WHITE BLOOD COUNT 6.2 10^3/uL (4.3-11.0)
[2018-05-24 09:19] LABS: CALCIUM 9.6 MG/DL (8.5-10.1); CREATININE SERUM 1.31 MG/DL (0.60-1.30); POTASSIUM 4.4 MMOL/L (3.6-5.0)
--- NOTE | 2018-05-24 10:25 | Diagnostic Imaging Report ---
PROCEDURE: CT abdomen and pelvis with contrast. TECHNIQUE: Multiple contiguous axial images were obtained through the abdomen and pelvis after administration of intravenous contrast. INDICATION: Hematuria for one week. COMPARISON: Correlation is made with prior CT from 08/09/2017. FINDINGS: The lung bases are clear. No discrete liver mass is detected. The gallbladder is contracted. The pancreas and spleen are unremarkable. No adrenal mass is identified. No renal calculi or hydronephrosis is seen. Aorta is calcified but nonaneurysmal. No definite central retroperitoneal or mesenteric lymphadenopathy is detected. Minimal hazy residual density in the central retroperitoneum is seen, nonspecific. This was described on prior CT but does appear to be improved. No discrete lymphadenopathy is identified. The small and large bowel loops are normal caliber. Large amount of beam hardening artifact is again noted from right hip prosthesis. This does limit evaluation of the bladder. The prostate is enlarged. There appears to be sigmoid diverticulosis without evidence of acute diverticulitis. The fluid containing mass in the right groin is unchanged. Evaluation of bony structures demonstrates severe multilevel degenerative disc disease. There is anterolisthesis of L4 on L5. IMPRESSION: No acute abnormality in the abdomen or pelvis is identified. Mild central retroperitoneal density previously noted has improved. No definite abdominal or pelvic lymphadenopathy is seen. There is uncomplicated sigmoid diverticulosis. Bladder is significantly compromised in evaluation due to artifact from patient's right hip prosthesis. Dictated by: Dictated on workstation # [id number]
== END ==
LOC: RAD 08:45
PROVIDERS: ATTEND Family Medicine
DX: K68.9 Other disorders of retroperitoneum (principal); K57.30 Diverticulosis of large intestine without perforation or abscess without bleeding; R31.9 Hematuria, unspecified
CPT/HCPCS: 36415; 74177; 80048; 85027

== ENCOUNTER 2018-10-03 08:44 | Outpatient (RCR) | payer MEDICARE ==
[2018-09-11 08:58] LABS: BASOPHILS % (AUTO) 0 % (0-10); EOSINOPHILS # (AUTO) 0.1 10^3/uL (0.0-0.3); EOSINOPHILS % (AUTO) 1 % (0-10); HEMATOCRIT 39 % (40-54); HEMOGLOBIN 13.6 G/DL (13.3-17.7); LYMPHOCYTES # (AUTO) 1.5 X 10^3 (1.0-4.0); LYMPHOCYTES % (AUTO) 22 % (12-44); MEAN CORPUSCULAR HEMOGLOBIN 33 PG (25-34); MEAN CORPUSCULAR HGB CONC 35 G/DL (32-36); MEAN CORPUSCULAR VOLUME 95 FL (80-99); MEAN PLATELET VOLUME 9.7 FL (7.4-10.4); MONOCYTES # (AUTO) 0.7 X 10^3 (0.0-1.0); MONOCYTES % (AUTO) 11 % (0-12); NEUTROPHILS # (AUTO) 4.2 X 10^3 (1.8-7.8); NEUTROPHILS % (AUTO) 65 % (42-75); PLATELET COUNT 238 10^3/uL (130-400); RED BLOOD COUNT 4.14 10^6/uL (4.35-5.85); RED CELL DISTRIBUTION WIDTH 13.3 % (10.0-14.5); WHITE BLOOD COUNT 6.5 10^3/uL (4.3-11.0)
[2018-09-11 09:17] LABS: ALANINE AMINOTRANSFERASE 12 U/L (0-55); ALKALINE PHOSPHATASE 96 U/L (40-136); BILIRUBIN,TOTAL 0.9 MG/DL (0.1-1.0); BUN/CREATININE RATIO 10; CALCIUM 9.7 MG/DL (8.5-10.1); CARBON DIOXIDE 26 MMOL/L (21-32); CHLORIDE 103 MMOL/L (98-107); CREATININE SERUM 1.02 MG/DL (0.60-1.30); GFR ESTIMATED > 60; GLUCOSE 87 MG/DL (70-105); POTASSIUM 4.5 MMOL/L (3.6-5.0); SODIUM 139 MMOL/L (135-145); TOTAL PROTEIN 7.6 GM/DL (6.4-8.2)
[~2018-10-03 08:44] MED LIST changes: +ACETAMINOPHEN 500 MG TAB (TYLENOL) CANCER CTR PO PRN; -AMLO5TAB2 PO; +AMLO5TAB7 PO; -CATHETER FLUSH 10 ML SYR IV PRN; -IOHEXOL 350 MG/ML 100 ML (OMNIPAQUE 350) VIAL IV ONE; +NS (IVPB) CANCER CENTER 250 ML ONE; -NS 250 ML (IVPB) BAG IV ONE; +NS IV 500 ML (CANCER CENTER) IV SCH; -RECEIVED CONTRAST (Hold Metformin) IV SCH; +diphenhydrAMINE 25 MG TAB (BENADRYL) CANCER CENTER PO SCH; +riTUXimab 500 MG, riTUXimab FOR IV INJ CONC 200 MG in NS (IVPB) CANCER CENTER 163 ML IV SCH
== END 2018-12-10 | disposition home or self-care (01) ==
LOC: ONC 08:44
PROVIDERS: ATTEND Internal Medicine Hematology & Oncology
DX: Z51.11 Encounter for antineoplastic chemotherapy (principal); C88.0 Waldenstrom macroglobulinemia; D64.9 Anemia, unspecified; I10 Essential (primary) hypertension; Z87.891 Personal history of nicotine dependence; Z79.899 Other long term (current) drug therapy
CPT/HCPCS: 80053; 82784; 83883; 84155; 84165; 85025; 96413; 99213; J9310

== ENCOUNTER 2019-02-26 18:39 | Inpatient (IN) | payer MEDICARE ==
[~2019-02-26] VITALS: Ht 172.7 cm; Wt 81.2 kg
[~2019-02-26 18:39] MED LIST changes: -ACETAMINOPHEN 500 MG TAB (TYLENOL) CANCER CTR PO PRN; -AMLO5TAB7 PO; +AMLO5TAB9 PO; -NS (IVPB) CANCER CENTER 250 ML ONE; -NS IV 500 ML (CANCER CENTER) IV SCH; -diphenhydrAMINE 25 MG TAB (BENADRYL) CANCER CENTER PO SCH; -riTUXimab 500 MG, riTUXimab FOR IV INJ CONC 200 MG in NS (IVPB) CANCER CENTER 163 ML IV SCH
--- OUTSIDE RECORDS SUMMARY | 2019-02-26 18:46 | XMS REPORT | Continuity of Care Document ---
Author Author [facility] Organization [facility] Address Unknown Phone Unavailable Care Team Providers Care Analyst Business Analysis Name Role Phone ALYCE PIERRE DO PP Insurance Providers Payer Name Policy Number Subscriber Name Relationship [employer] Supp [id number] Tanisha Yi Self / Same As Patient Wps Medicare [id number] Tanisha Yi Self / Same As Patient Advance Directives Directive Response Recorded Date Advance Directives N 03/23/13 12:23am Health Care Power of Sap Portal Developer N 03/23/13 12:23am Organ Donor N 03/23/13 12:23am Problems No Known Problems or Medical conditions. Social History History Response Recorded Date/Time Alcohol Use Denies Use 03/23/13 12:23am Recreational Drug Use N 03/23/13 12:23am Allergies, Adverse Reactions, Alerts Allergen Type Severity Reaction Last Updated Prochlorperazine Allergy 04/28/10 FISH Allergy 04/28/10 Medications Medication Dose Units Route Sig Qty Days Tramadol Hcl 50 Mg PO PRN Rivaroxaban (Xarelto) 10 Mg PO DAILY Ciprofloxacin Hcl 1 Each OT BID Famotidine (Acid Manufacturing Engineer [employer]) 20 Mg PO Cyanocobalamin (Vitamin B12) 500 Mcg PO DAILY Calcium Carbonate/Vitamin D3 (Calcium 600 + D Caplet) 1 Each PO DAILY Omeprazole 1 Cap PO DAILY 30 Amlodipine Besylate DAILY Allopurinol (Zyloprim) 300 Mg PO DAILY Acetaminophen/Hydrocodone Bitart (Lortab 7.5 Mg) Cephalexin Monohydrate (Cephalexin) 1 Each PO TID Immunizations Name Given Type Date of Pneumonia Vaccine 08/26/12 H Date of Influenza Vaccine 08/26/12 H Response Recorded Date/Time Status not known Unknown Results Test Date Result Interp. Ref. Range B-Type Natriuretic Peptide May 12, 2011 11:38am 117.0 PG/ML H 5.0-100.0 BUN/Creatinine Ratio May 15, 2011 9:42am 19 - Band Neutrophils February 27, 2008 1:20pm 0 % - Basophils # (Auto) February 27, 2008 1:20pm 0.0 10^3/uL N 0.0-0.1 Basophils % (Manual) February 27, 2008 1:20pm 0 % - Basophils (%) (Auto) February 27, 2008 1:20pm 0 % N 0-10 Blood Urea Nitrogen May 15, 2011 9:42am 23 MG/DL H 7-18 C-Reactive Protein December 16, 2007 11:45am 8.9 MG/DL H 0.2-0.9 Calcium Level December 02, 2007 9:45am 9.0 MG/DL N 8.5-10.1 Carbon Dioxide Level December 02, 2007 9:45am 28 MMOL/L N 21-32 Chloride Level December 02, 2007 9:45am 102 MMOL/L N 101-110 Creatinine May 15, 2011 9:42am 1.2 MG/ DL N 0.6-1.3 Eosinophils # (Auto) February 27, 2008 1:20pm 0.3 10^3/uL N 0.0-0.3 Eosinophils % (Manual) February 27, 2008 1:20pm 4 % - Eosinophils (%) (Auto) February 27, 2008 1:20pm 3 % N 0-10 Erythrocyte Sedimentation Rate December 16, 2007 11:45am 66 MM/HR H 0-30 Glucose Level December 02, 2007 9:45am 91 MG/DL N 70-126 Hematocrit February 27, 2008 1:20pm 37 % L 40-54 Hemoglobin February 27, 2008 1:20pm 11.8 G/ DL L 13.3-17.7 Lymphocytes # (Auto) February 27, 2008 1:20pm 2.2 X 10^3 N 1.0-4.0 Lymphocytes % (Manual) February 27, 2008 1:20pm 11 % - Lymphocytes (%) (Auto) February 27, 2008 1:20pm 23 % N 12-44 Mean Corpuscular Hemoglobin February 27, 2008 1:20pm 29 PG N 25-34 Mean Corpuscular Hemoglobin Concent February 27, 2008 1:20pm 32 G/DL N 32-36 Mean Corpuscular Volume February 27, 2008 1:20pm 89 FL N 80-99 Mean Platelet Volume February 27, 2008 1:20pm 9.9 FL N 7.4-10.4 Monocytes # (Auto) February 27, 2008 1:20pm 1.4 X 10^3 H 0.0-1.0 Monocytes % (Manual) February 27, 2008 1:20pm 11 % - Monocytes (%) (Auto) February 27, 2008 1:20pm 14 % H 0-12 Neutrophils # (Auto) February 27, 2008 1:20pm 6.0 X 10^3 N 1.8-7.8 Neutrophils % (Manual) February 27, 2008 1:20pm 58 % - Neutrophils (%) (Auto) February 27, 2008 1:20pm 61 % N 42-75 Platelet Count February 27, 2008 1:20pm 405 10^3/uL H 130-400 Potassium Level December 02, 2007 9:45am 4.1 MMOL/L N 3.6-5.0 Prothromb Time International Ratio March 05, 2008 12:30pm 1.5 H 0.8-1.4 Prothrombin Time March 05, 2008 12:30pm 18.1 SEC H 12.2-14.7 Reactive Lymphocytes February 27, 2008 1:20pm 16 % - Red Blood Count February 27, 2008 1:20pm 4.09 10^6/uL L 4.35-5.85 Red Cell Distribution Width February 27, 2008 1:20pm 15.1 % H 10.0-14.5 Sodium Level December 02, 2007 9:45am 138 MMOL/L N 135-145 Vancomycin Level Trough November 25, 2007 8:35am 17 MCG/ML N 10-20 White Blood Count February 27, 2008 1:20pm 9.9 10^3/uL N 4.3-11.0 Smear Scan November 05, 2007 9:00am Yes - Estimat Glomerular Filtration Rate May 15, 2011 9:42am 60 - Blood Morphology Comment February 27, 2008 1:20pm Normal - Procedures Procedure Code Date REPAIR OF HAMMERTOE 63393 04/20/11 PARTIAL REMOVAL OF TOE 62057 04/20/11 Encounters Encounter Location Date/Time Departed Emergency Room [facility] 12:14am
--- NOTE | 2019-02-26 18:47 | ED Dyspnea ---
General Chief Complaint: Respiratory Problems Stated Complaint: SOB Nursing Triage Note: .PT TO RM 5 BY WHEELCHAIR. PT COMPLAINING OF SOA. STATES SOA STARTED APPROX 30 MINUTES OUTREACH REP. DENIES CHEST PAIN PRESENTLY. STATES HAS HAD INTERMITTENT CHEST PAIN/ Source of Information: Patient Exam Limitations: No Limitations History of Present Illness Date Seen by Provider: Feb 26, 2019 Time Seen by Provider: 18:46 Initial Comments To ER with sudden onset shortness of breath 30 minutes ago. He denies chest pain currently but he did have some earlier today. He felt fine prior to 30 minutes ago no shortness of breath fevers chills or malaise. He does have lymphoma for which she sees Dr. Matson. He takes chemotherapy for 6 weeks and then "takes a few months off" according to his . He just completed a few months off and was tentatively scheduled to restart chemotherapy this week. Severity: Moderate Associated Symptoms: Chest Pain Allergies and Home Medications Allergies Coded Allergies: prochlorperazine (Unverified Allergy, Unknown, 02/26/19) Uncoded Allergies: FISH (Allergy, Unknown, 09/13/15) Home Medications Allopurinol 300 Mg Tablet, 300 MG PO DAILY, (Reported) Amlodipine Besylate 5 Mg Tablet, 5 MG PO DAILY, (Reported) Atenolol 25 Mg Tablet, 25 MG PO DAILY, (Reported) Calcium Carbonate/Vitamin D3 1 Each Tablet, 1 TAB PO DAILY, (Reported) Omeprazole 20 Mg Tablet.dr, 20 MG PO DAILY Prescribed by: NAREN MUNIZ on 09/10/17847 Sucralfate 1 Gm/10 Ml Oral.susp, 1 GM PO QID 30 min before meals and bed. May sub pills to crush and slurry Prescribed by: NAREN MUNIZ on 09/10/17847 Patient Home Medication List Home Medication List Reviewed: Yes Review of Systems Review of Systems Constitutional: see HPI EENTM: see HPI Respiratory: see HPI, cough, dyspnea on exertion, short of breath Cardiovascular: no symptoms reported Genitourinary: no symptoms reported Musculoskeletal: no symptoms reported Skin: no symptoms reported Psychiatric/Neurological: No Symptoms Reported Past Jhnzuzg-Ponvav-Oznskm Hx Patient Social History Alcohol Beverage of Choice: Beer Former Smoker, Quit: Nov 26, 1975 Recent Foreign Travel: No Contact w/Someone Who Travel: No Recent Infectious Disease Expo: No Immunizations Up To Date Tetanus Booster (TDap): Less than 5yrs Date of Pneumonia Vaccine: Dec 01, 2015 Date of Influenza Vaccine: Aug 16, 2015 Seasonal Allergies Seasonal Allergies: Yes Past Medical History Surgeries: Yes (cataract, BACK SURGERY, KNEE/HIP TWICE, FUSED LEFT ANKLE) Abdominal, Ear Surgery, Joint Replacement, Orthopedic Respiratory: Yes Asthma Cardiac: Yes Hypertension Neurological: No Reproductive Disorders: No Sexually Transmitted Disease: No Gastrointestinal: Yes (BLEEDING ULCERS IN THE PAST) Esophagitis, Ulcer Musculoskeletal: No Arthritis, Chronic Back Pain Endocrine: No Cataract Hearing Impairment: Hard of Hearing Cancer: Yes Lymphoma Psychosocial: No Integumentary: No Blood Disorders: No Family Medical History Glaucoma 19 MOTHER Physical Exam Vital Signs Vital Signs - First Documented 02/26/19 02/26/19 18:40 19:01 Temp 99.5 Pulse 130 Resp 20 Pulse Ox 94 O2 Delivery Room Air O2 Flow Rate 3.00 Capillary Refill : Less Than 3 Seconds Height, Weight, BMI Height: 5'8.00" Weight: 179lbs. 8.0oz. 81.908934rk; 29.6 BMI Method:Stated General Appearance: No Apparent Distress, Mild Distress HEENT: PERRL/EOMI, TMs Normal Neck: Full Range of Motion, Normal Inspection Respiratory: No Accessory Muscle Use, No Respiratory Distress, Decreased Breath Sounds; No Rhonci, No Wheezing; Other (tachypneic with a respiratory rate in the 30s. Initial oxygen saturation 94% on room air. Heart rate is irregular tachycardic at about 120 to 130) Cardiovascular: Irregularly Irregular, Tachycardia Gastrointestinal: Normal Bowel Sounds, Non Tender, Soft Extremity: Normal Capillary Refill, Normal Inspection Neurologic/Psychiatric: Alert, Oriented x3 Skin: Normal Color, Warm/Dry Focused Exam Lactate Level 02/26/19 18:45: Lactic Acid Level 1.73 Lactic Acid Level Laboratory Tests Test 02/26/19 18:45 Lactic Acid Level 1.73 MMOL/L (0.50-2.00) Progress/Results/Core Measures Results/Orders Lab Results Laboratory Tests Test 02/26/19 18:45 02/26/19 19:02 02/26/19 19:25 Range/Units White Blood Count 15.2 H 4.3-11.0 10^3/uL Red Blood Count 4.94 4.35-5.85 10^6/uL Hemoglobin 15.3 13.3-17.7 G/DL Hematocrit 45 40-54 % Mean Corpuscular Volume 90 80-99 FL Mean Corpuscular Hemoglobin 31 25-34 PG Mean Corpuscular Hemoglobin Concent 34 32-36 G/DL Red Cell Distribution Width 13.6 10.0-14.5 % Platelet Count 228 130-400 10^3/uL Mean Platelet Volume 10.5 H 7.4-10.4 FL Neutrophils (%) (Auto) 87 H 42-75 % Lymphocytes (%) (Auto) 7 L 12-44 % Monocytes (%) (Auto) 6 0-12 % Eosinophils (%) (Auto) 0 0-10 % Basophils (%) (Auto) 0 0-10 % Neutrophils # (Auto) 13.1 H 1.8-7.8 X 10^3 Lymphocytes # (Auto) 1.1 1.0-4.0 X 10^3 Monocytes # (Auto) 1.0 0.0-1.0 X 10^3 Eosinophils # (Auto) 0.0 0.0-0.3 10^3/uL Basophils # (Auto) 0.0 0.0-0.1 10^3/uL Neutrophils % (Manual) 89 % Lymphocytes % (Manual) 8 % Monocytes % (Manual) 2 % Eosinophils % (Manual) 0 % Basophils % (Manual) 0 % Band Neutrophils 1 % Blood Morphology Comment NORMAL Prothrombin Time 13.6 12.2-14.7 SEC INR Comment 1.0 0.8-1.4 Activated Partial Thromboplast Time 29 24-35 SEC D-Dimer 0.59 H 0.00-0.49 UG/ML Sodium Level 139 135-145 MMOL/L Potassium Level 4.3 3.6-5.0 MMOL/L Chloride Level 100 98-107 MMOL/L Carbon Dioxide Level 28 21-32 MMOL/L Anion Gap 11 5-14 MMOL/L Blood Urea Nitrogen 15 7-18 MG/DL Creatinine 1.03 0.60-1.30 MG/DL Estimat Glomerular Filtration Rate > 60 BUN/Creatinine Ratio 15 Glucose Level 102 70-105 MG/DL Lactic Acid Level 1.73 0.50-2.00 MMOL/L Calcium Level 10.3 H 8.5-10.1 MG/DL Corrected Calcium 8.5-10.1 MG/DL Magnesium Level 2.0 1.8-2.4 MG/DL Total Bilirubin 0.9 0.1-1.0 MG/DL Aspartate Amino Transf (AST/SGOT) 23 5-34 U/L Alanine Aminotransferase (ALT/SGPT) 16 0-55 U/L Alkaline Phosphatase 103 40-136 U/L Total Creatine Kinase 209 H 30-200 U/L Creatine Kinase MB 6.6 *H <6.6 NG/ML Troponin I < 0.028 <0.028 NG/ML B-Type Natriuretic Peptide 111.9 H <100.0 PG/ML Total Protein 7.7 6.4-8.2 GM/DL Albumin 4.6 H 3.2-4.5 GM/DL Urine Color YELLOW Urine Clarity CLEAR Urine pH 8 5-9 Urine Specific [place] 1.010 L 1.016-1.022 Urine Protein 1+ H NEGATIVE Urine Glucose (UA) NEGATIVE NEGATIVE Urine Ketones NEGATIVE NEGATIVE Urine Nitrite NEGATIVE NEGATIVE Urine Bilirubin NEGATIVE NEGATIVE Urine Urobilinogen 1 NORMAL MG/DL Urine Leukocyte Esterase NEGATIVE NEGATIVE Urine RBC (Auto) NEGATIVE NEGATIVE Urine RBC NONE /HPF Urine WBC RARE /HPF Urine Squamous Epithelial Cells 0-2 /HPF Urine Crystals NONE /LPF Urine Bacteria NEGATIVE /HPF Urine Casts NONE /LPF Urine Mucus NEGATIVE /LPF Urine Culture Indicated NO Blood Gas Puncture Site LEFT RADIAL Blood Gas Patient Temperature 99.5 Arterial Blood pH 7.47 H 7.37-7.43 Arterial Blood Partial Pressure CO2 37 35-45 MMHG Arterial Blood Partial Pressure O2 82 79-93 MMHG Arterial Blood HCO3 26 23-27 MMOL/L Arterial Blood Total CO2 27.1 21.0-31.0 MMOL/L Arterial Blood Oxygen Saturation 93 L 94-100 % Arterial Blood Base Excess 2.6 H -2.5-2.5 MMOL/L Cresencio Test POSITIVE Blood Gas Ventilator Setting NO Blood Gas Inspired Oxygen 2L Micro Results Microbiology 02/26/19 Influenza Types A,B Antigen (ARIANNA) - Final, Complete My Orders Orders - THELMA FAIR APRN Fibrin Degradation Products (02/26/19 18:52) Metoprolol Tartrate Injection (Lopressor (02/26/19 19:00) Ct Angio Chest W (02/26/19 19:00) Ekg Tracing (02/26/19 19:09) Aspirin Chewable Tablet (Baby Aspirin Ch (02/26/19 19:15) Ns (Ivpb) (Sodium C... W/Diltiazem Injec (02/26/19 19:15) Ns Iv 500 Ml (Sodium Chloride 0.9%) (02/26/19 19:15) Levalbuterol (Non-Formulary) (Xopenex (N (02/26/19 19:08) Influenza A And B Antigens (02/26/19 19:13) Levalbuterol (Non-Formulary) (Xopenex (N (02/26/19 19:15) Iohexol Injection (Omnipaque 350 Mg/Ml 1 (02/26/19 19:30) Di Iv Start (Assessment) .IV start (02/26/19 19:19) Received Contrast (Hold Metformin- Contr (02/26/19 19:30) Arterial Blood Gas (02/26/19 19:22) Lorazepam Injection (Ativan Injection) (02/26/19 19:30) Arterial Blood Gas (02/26/19 19:30) Lorazepam Injection (Ativan Injection) (02/26/19 19:29) Ns (Ivpb) (Sodium C... W/Diltiazem Injec (02/26/19 19:45) Levalbuterol (Non-Formulary) (Xopenex (N (02/26/19 19:45) Arterial Blood Draw (02/26/19 ) Medications Given in ED Current Medications Medications Dose Ordered Sig/Pelon Route Start Time Stop Time Status Last Admin Dose Admin Aspirin 324 mg ONCE ONCE PO 02/26/19 19:15 02/26/19 19:16 DC 02/26/19 19:34 324 MG Levalbuterol HCl 1.25 mg STK-MED ONCE .ROUTE 02/26/19 19:08 02/26/19 19:11 DC 02/26/19 19:16 1.25 MG Lorazepam 0.5 mg ONCE PRN IVP 02/26/19 19:30 02/26/19 19:34 0.5 MG Metoprolol Tartrate 5 mg ONCE ONCE IV 02/26/19 19:00 02/26/19 19:01 DC 02/26/19 18:56 5 MG Vital Signs/I&O 02/26/19 02/26/19 02/26/19 18:40 19:01 19:17 Temp 99.5 Pulse 130 Resp 20 B/P (MAP) Pulse Ox 94 97 96 O2 Delivery Room Air Nasal Cannula Nasal Cannula O2 Flow Rate 3.00 3.00 Diagnostic Imaging Diagonstic Imaging: Xray Plain Films/CT/US/NM/MRI: chest Comments NAME: [facility] REC#: [id number] PT STATUS: REG ER : 1940 PHYSICIAN: BRE MONROY DO ADMIT DATE: 02/26/19/ER Draft Date of Exam:02/26/19 CHEST 1 VIEW, AP/PA ONLY PATIENT HISTORY: Shortness of air. TECHNIQUE: Frontal view of the chest. COMPARISON: 02/08/2016 FINDINGS: There is mild elevation of the left hemidiaphragm. There are bibasilar airspace opacities which appear increased compared to the prior exam. No significant pleural effusion or pneumothorax is seen. The cardiac silhouette is stable in size. There is aortic atherosclerosis. IMPRESSION: Mild bibasilar opacities appear increased since the prior exam, most likely atelectasis, less likely developing infiltrate. Dictated on workstation # [id number] Dict: 02/26/191901 Trans: 02/26/19 [id number] Interpreted by: DANIELLE LINDSAY MD Electronically signed by: Departure Communication (Admissions) Time/Spoke to Admitting Phy: 20:45 1921-he's been given 5 mg of Lopressor IV. His heart rate reduced from 130 down to about 105 sinus with occasional PAC. Blood pressure has dropped down to 165/ 95. He was given a Xopenex treatment and at this time reports that he is breathing easier. His oxygen saturation remains 9495%, he is on 2 L of supplemental oxygen just for comfort at this time. His age-adjusted d-dimer is negative. Dyspnea as a function of Anxiety would be in the differential. Portal x-ray shows no evidence of overt failure or infiltrate. He does state that he feels very anxious "especially since I'm here" and also states that he is claustrophobic and is worried about the CT scan of his chest. 0.5 mg lorazepam IV ordered. 2042- I discussed the case with Dr. Blair. He would recommend stopping the atenolol and Norvasc and substituting Toprol-XL 200 mg now and then daily since this gentleman has received 2 doses of Lopressor 5 mg IV and is still tachycardic at 117 and with a blood pressure 145/92 and is already on atenolol 25 mg daily and this seems a reasonable approach so I'll order that. Patient is laying in bed he appears more comfortable at this time, however, he denies much improvement subjectively. states that she is ill with an upper respiratory infection and perhaps he has caught it. I discussed with her that it is possible it would be unusual to have sudden onset of intense dyspnea with that. We will also cover him empirically with Lovenox in case this tachycardia is guest experience representative of A. fib though it looks very regular and I will leave it to be sinus with occasional PAC/PVC, he has no known bleeding risks such as ulcers or GI bleed. We will put him on the ICU stepdown status. Since he was scheduled to see Dr. Matson this week to restart chemotherapy I'll consult Dr. Matson in the morning. Impression Primary Impression: Dyspnea Qualified Codes: R06.02 - Shortness of breath Additional Impression: Leukocytosis Qualified Codes: D72.829 - Elevated white blood cell count, unspecified Disposition: ADMITTED INPATIENT Condition: Stable Admissions Decision to Admit Reason: Admit from ER (General) Decision to Admit/Date: Feb 26, 2019 Time/Decision to Admit Time: 20:43 Departure-Patient Inst. Referrals: ANGEL ZARATE DO (PCP/Family) Primary Care Physician THELMA FAIR APRN Feb 26, 2019 18:47
--- OUTSIDE RECORDS SUMMARY | 2019-02-26 18:47 | XMS REPORT | Continuity of Care Document ---
Author Author [facility] Organization [facility] Address Unknown Phone Unavailable Allergies Active Description Code Type Severity Reaction Onset Reported/Identified Relationship to Patient Clinical Status Yes FISH FISH Unknown N/A 09/13/2015 Yes prochlorperazine [id number] Drug Allergy Unknown N/A 09/13/2015 Medications There is no data. Problems Date Dx Coded Attending Type Code Diagnosis Diagnosed By 10/25/1057 CARMEL MATTHEWS Ot D69.6 THROMBOCYTOPENIA, UNSPECIFIED 10/25/1057 CARMEL MATTHEWS Ot Z79.899 OTHER PRISON (CURRENT) DRUG THERAPY 04/28/2010 Ot 719.41 04/20/2011 Ot 726.91 04/20/2011 Ot 735.4 04/23/2011 Ot 338.18 04/23/2011 Ot 729.5 07/01/2012 Ot 729.81 SWELLING OF LIMB 07/01/2012 Ot V58.30 ENCOUNTER FOR CHANGE OR REMOVAL OF NONSU 03/23/2013 PAMELLA MOLINA MD Ot V12.51 HX-VENOUS THROMBOSIS EMBOLISM 03/23/2013 PAMELLA MOLINA MD Ot V58.31 ENCOUNTER FOR CHANGE OR REMOVAL OF SURGI 03/23/2013 PAMELLA MOLINA MD Ot V58.61 ANTICOAGULANTS,LT,CURRENT USE 05/28/2013 ALYCE PIERRE DO Ot V43.65 KNEE JOINT REPLACEMENT STATUS 05/28/2013 ALYCE PIERRE DO Ot V54.81 AFTERCARE FOLLOWING JOINT REPLACEMENT 05/28/2013 ALYCE PIERRE DO Ot V57.1 PHYSICAL THERAPY NEC 09/03/2015 LIZBETH OWEN MD Ot T17.928A FOOD IN RESP TRACT, PART UNSP CAUSING OT 09/03/2015 LIZBETH OWEN MD Ot T18.108A UNSP FOREIGN BODY IN ESOPHAGUS CAUSING O 09/03/2015 LIZBETH OWEN MD Ot Y99.8 OTHER EXTERNAL CAUSE STATUS 09/13/2015 Ot 726.91 09/13/2015 Ot V72.83 09/13/2015 Ot 433.30 09/13/2015 Ot 362.81 09/13/2015 Ot 433.10 09/13/2015 Ot 722.4 09/13/2015 Ot 593.9 09/13/2015 Ot 786.05 09/13/2015 Ot 593.9 09/13/2015 Ot 786.05 09/13/2015 Ot 786.6 09/13/2015 Ot 443.9 09/13/2015 Ot 729.81 09/13/2015 Ot 443.9 09/13/2015 Ot 729.81 09/13/2015 Ot 729.81 09/13/2015 Ot V58.30 09/15/2015 ELLIOT DESOUZAANGEL Ot D72.829 ELEVATED WHITE BLOOD CELL COUNT, UNSPECI 09/15/2015 ELLIOT ANGEL DESOUZA Ot I10 ESSENTIAL (PRIMARY) HYPERTENSION 09/15/2015 ELLIOT DESOUZAANGEL Ot J45.909 UNSPECIFIED ASTHMA, UNCOMPLICATED 09/15/2015 ROSEYFLORIDARENÉE ANGEL DESOUZA Ot N39.0 URINARY TRACT INFECTION, SITE NOT SPECIF 09/15/2015 ELLIOT DESOUZAANGEL Ot R19.7 DIARRHEA, UNSPECIFIED 09/15/2015 ELLIOT DESOUZAANGEL Ot R31.9 HEMATURIA, UNSPECIFIED 09/15/2015 ELLIOT DESOUZAANGEL Ot Z87.891 PERSONAL HISTORY OF NICOTINE DEPENDENCE 10/06/2015 ELLIOT DESOUZAANGEL Ot N39.0 10/06/2015 ROSEYFLORIDARENÉE ANGEL DESOUZA Ot R31.9 02/08/2016 Ot 726.91 02/08/2016 Ot V72.83 02/08/2016 Ot 433.30 02/08/2016 Ot 362.81 02/08/2016 Ot 433.10 02/08/2016 Ot 722.4 02/08/2016 Ot 593.9 02/08/2016 Ot 786.05 02/08/2016 Ot 593.9 02/08/2016 Ot 786.05 02/08/2016 Ot 786.6 02/08/2016 Ot 443.9 02/08/2016 Ot 729.81 02/08/2016 Ot 443.9 02/08/2016 Ot 729.81 02/08/2016 Ot 729.81 02/08/2016 Ot V58.30 02/08/2016 GELLENDER DO, ANGEL Puga Ot N39.0 02/08/2016 GELLENDER DO, ANGEL Puga Ot R31.9 02/08/2016 GELLENDER DO, ANGEL Puga Ot R05 02/08/2016 GELLENDER DO, ANGEL Puga Ot R06.02 03/06/2016 GELLENDER DO, ANGEL Puga Ot R05 03/06/2016 GELLENDER DO, ANGEL Puga Ot R06.02 03/08/2016 GELLENDER DO, ANGEL Puga Ot R05 03/08/2016 GELLENDER DO, ANGEL Puga Ot R06.02 05/24/2016 MIRELA CHACON MD Ot M47.816 SPONDYLOSIS W/O MYELOPATHY OR RADICULOPA 05/24/2016 MIRELA CHACON MD Ot T18.128A FOOD IN ESOPHAGUS CAUSING OTHER INJURY, 05/24/2016 MIRELA CHACON MD Ot Y92.[address] IN [facility] NON-INST[facility] (PRIVATE 05/25/2016 MIRELA CHACON MD Ot M47.816 SPONDYLOSIS W/O MYELOPATHY OR RADICULOPA 05/25/2016 MIRELA CHACON MD Ot T18.128A FOOD IN ESOPHAGUS CAUSING OTHER INJURY, 05/25/2016 MIRELA CHACON MD Ot Y92.[address] IN [facility] NON-[facility] (PRIVATE 05/26/2016 MIRELA CHACON MD Ot M47.816 SPONDYLOSIS W/O MYELOPATHY OR RADICULOPA 05/26/2016 MIRELA CHACON MD Ot T18.128A FOOD IN ESOPHAGUS CAUSING OTHER INJURY, 05/26/2016 MIRELA CHACON MD Ot Y92.[address] IN [facility] NON[facility] (PRIVATE 05/31/2016 KRISTIE GRIFFIN MD Ot K21.0 GASTRO-ESOPHAGEAL REFLUX DISEASE WITH ES 05/31/2016 KRISTIE GRIFFIN MD, Ot K22.2 ESOPHAGEAL OBSTRUCTION 05/31/2016 KRISTIE GRIFFIN MD Ot K29.70 GASTRITIS, UNSPECIFIED, WITHOUT BLEEDING 06/01/2016 KRISTIE GRIFFIN MD, Ot K21.0 GASTRO-ESOPHAGEAL REFLUX DISEASE WITH ES 06/01/2016 KIDO MD, TAKAAKI Ot K22.2 ESOPHAGEAL OBSTRUCTION 06/01/2016 KRISTIE GRIFFIN MD Ot K29.70 GASTRITIS, UNSPECIFIED, WITHOUT BLEEDING 06/14/2016 MIRELA CHACON MD Ot M47.816 SPONDYLOSIS W/O MYELOPATHY OR RADICULOPA 06/14/2016 MIRELA CHACON MD Ot T18.128A FOOD IN ESOPHAGUS CAUSING OTHER INJURY, 06/14/2016 MIRELA CHACON MD Ot Y92.[address] [facility] 06/15/2016 GABY BERG, KRISTIE Ot K21.0 GASTRO-ESOPHAGEAL REFLUX DISEASE WITH ES 06/15/2016 KRISTIE GRIFFIN MD Ot K22.2 ESOPHAGEAL OBSTRUCTION 06/15/2016 KRISTIE GRIFFIN MD Ot K29.70 GASTRITIS, UNSPECIFIED, WITHOUT BLEEDING 04/16/2017 Ot 443.9 PERIPH VASCULAR DIS NOS 04/16/2017 Ot 729.81 SWELLING OF LIMB 04/16/2017 Ot 443.9 PERIPH VASCULAR DIS NOS 04/16/2017 Ot 729.81 SWELLING OF LIMB 04/16/2017 Ot 729.81 SWELLING OF LIMB 04/16/2017 Ot V58.30 ENCOUNTER FOR CHANGE OR REMOVAL OF NONSU 04/16/2017 GELFLORIDADER ANGEL DESOUZA Ot N39.0 URINARY TRACT INFECTION, SITE NOT SPECIF 04/16/2017 GELLENDER DOANGEL Ot R31.9 HEMATURIA, UNSPECIFIED 04/16/2017 GELLENDER DOANGEL Ot R05 COUGH 04/16/2017 GELLENDER ANGEL DESOUZA Ot R06.02 SHORTNESS OF BREATH 04/16/2017 GELLENDER ANGEL DESOUZA Ot D50.8 OTHER IRON DEFICIENCY ANEMIAS 04/16/2017 GELLENDER DOANGEL Ot D50.8 OTHER IRON DEFICIENCY ANEMIAS 04/19/2017 GELLENDER ANGEL DESOUZA Ot D64.9 ANEMIA, UNSPECIFIED 05/09/2017 GELLENDER DOANGEL Ot D64.9 ANEMIA, UNSPECIFIED 08/07/2017 Ot 443.9 PERIPH VASCULAR DIS NOS 08/07/2017 Ot 729.81 SWELLING OF LIMB 08/07/2017 Ot 443.9 PERIPH VASCULAR DIS NOS 08/07/2017 Ot 729.81 SWELLING OF LIMB 08/07/2017 Ot 729.81 SWELLING OF LIMB 08/07/2017 Ot V58.30 ENCOUNTER FOR CHANGE OR REMOVAL OF NONSU 08/07/2017 GELLENDER DO, ANGEL Puga Ot N39.0 URINARY TRACT INFECTION, SITE NOT SPECIF 08/07/2017 GELLENDER DO, ANGEL Puga Ot R31.9 HEMATURIA, UNSPECIFIED 08/07/2017 GELLENDER DO, ANGEL Puga Ot R05 COUGH 08/07/2017 GELLENDER DO, ANGEL Puga Ot R06.02 SHORTNESS OF BREATH 08/07/2017 GELLENDER DO, ANGEL Puga Ot D64.9 ANEMIA, UNSPECIFIED 08/07/2017 GELLENDER DO, ANGEL Puga Ot D69.6 THROMBOCYTOPENIA, UNSPECIFIED 08/10/2017 CASSIECARMEL TADEO Ot D69.6 THROMBOCYTOPENIA, UNSPECIFIED 08/10/2017 CASSIECARMEL TADEO Ot K57.30 DVRTCLOS OF LG INT W/O PERFORATION OR AB 08/10/2017 CARMEL MATTHEWS Ot M89.9 DISORDER OF BONE, UNSPECIFIED 08/10/2017 CARMEL MATTHEWS Ot R16.1 SPLENOMEGALY, NOT ELSEWHERE CLASSIFIED 08/15/2017 CASSIECARMEL TADEO Ot D69.6 THROMBOCYTOPENIA, UNSPECIFIED 08/15/2017 CASSIECARMEL N Ot Z79.899 OTHER DIRECTOR UTILIZATION MANAGEMENT (CURRENT) DRUG THERAPY 08/23/2017 CASSIECARMEL TADEO Ot D69.6 THROMBOCYTOPENIA, UNSPECIFIED 08/23/2017 CASSIE, BOBAMANUEL N Ot Z79.899 OTHER PRISON (CURRENT) DRUG THERAPY 08/28/2017 AMYDER DOANGEL Edd Ot D69.6 THROMBOCYTOPENIA, UNSPECIFIED 08/30/2017 CASSIECARMEL TADEO Ot 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 08/30/2017 CASSIECARMEL TADEO N Ot D64.9 ANEMIA, UNSPECIFIED 08/30/2017 CASSIECARMEL N Ot I10 ESSENTIAL (PRIMARY) HYPERTENSION 08/30/2017 CASSIECARMEL TADEO N Ot Z79.899 OTHER PRISON (CURRENT) DRUG THERAPY 08/30/2017 CASSIECARMEL TADEO N Ot Z87.891 PERSONAL HISTORY OF NICOTINE DEPENDENCE 09/03/2017 CASSIECARMEL TADEO Ot D69.6 THROMBOCYTOPENIA, UNSPECIFIED 09/03/2017 CASSIECARMEL TADEO N Ot K57.30 DVRTCLOS OF LG INT W/O PERFORATION OR AB 09/03/2017 CASSIE, CARMEL Newell Ot M89.9 DISORDER OF BONE, UNSPECIFIED 09/03/2017 CASSIE, CARMEL Newell Ot R16.1 SPLENOMEGALY, NOT ELSEWHERE CLASSIFIED 09/05/2017 CASSIE, CARMEL Newell Ot D69.6 THROMBOCYTOPENIA, UNSPECIFIED 09/05/2017 CASSIE, COLLETTEAMANUEL Reece Ot K57.30 DVRTCLOS OF LG INT W/O PERFORATION OR AB 09/05/2017 CASSIE, CARMEL Newell Ot M89.9 DISORDER OF BONE, UNSPECIFIED 09/05/2017 CASSIE, COLLETTEAMANUEL Reece Ot R16.1 SPLENOMEGALY, NOT ELSEWHERE CLASSIFIED 09/10/2017 NAREN BARNETT MD Ot 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, UNSPECIFIED 09/10/2017 NAREN BARNETT MD Ot 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 09/10/2017 NAREN BARNETT MD Ot I10 ESSENTIAL (PRIMARY) HYPERTENSION 09/10/2017 NAREN BARNETT MD Ot J45.909 UNSPECIFIED ASTHMA, UNCOMPLICATED 09/10/2017 NAREN BARNETT MD Ot K22.2 ESOPHAGEAL OBSTRUCTION 09/10/2017 NAREN BARNETT MD Ot R09.89 OTH SYMPTOMS AND SIGNS INVOLVING THE CIR 09/10/2017 NAREN BARNETT MD Ot T18.128A FOOD IN ESOPHAGUS CAUSING OTHER INJURY, 09/10/2017 NAREN BARNETT MD Ot Z87.891 PERSONAL HISTORY OF NICOTINE DEPENDENCE 09/16/2017 NAREN BARNETT MD Ot 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, UNSPECIFIED 09/16/2017 NAREN BANRETT MD Ot 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 09/16/2017 NAREN BARNETT MD Ot I10 ESSENTIAL (PRIMARY) HYPERTENSION 09/16/2017 NAREN BARNETT MD Ot J45.909 UNSPECIFIED ASTHMA, UNCOMPLICATED 09/16/2017 NAREN BARNETT MD Ot K22.2 ESOPHAGEAL OBSTRUCTION 09/16/2017 NAREN BARNETT MD Ot R09.89 OTH SYMPTOMS AND SIGNS INVOLVING THE CIR 09/16/2017 ERICKA BERG, NAREN Pugh Ot T18.128A FOOD IN ESOPHAGUS CAUSING OTHER INJURY, 09/16/2017 NAREN BARNETT MD Ot Z87.891 PERSONAL HISTORY OF NICOTINE DEPENDENCE 09/25/2017 CARMEL MATTHEWS Ot 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 09/25/2017 CARMEL MATTHEWS Ot D64.9 ANEMIA, UNSPECIFIED 09/25/2017 CARMEL MATTHEWS Ot I10 ESSENTIAL (PRIMARY) HYPERTENSION 09/25/2017 CARMEL MATTHEWS Reece Ot Z79.899 OTHER PRISON (CURRENT) DRUG THERAPY 09/25/2017 CARMEL MATTHEWS Reece Ot Z87.891 PERSONAL HISTORY OF NICOTINE DEPENDENCE 09/25/2017 KATHRYN CONCEPCION MD, Ot 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 09/25/2017 KATHRYN CONCEPCION MD Ot D64.9 ANEMIA, UNSPECIFIED 09/25/2017 KATHRYN CONCEPCION MD, Ot I10 ESSENTIAL (PRIMARY) HYPERTENSION 09/25/2017 KATHRYN CONCEPCION MD Ot Z79.899 OTHER DIRECTOR UTILIZATION MANAGEMENT (CURRENT) DRUG THERAPY 09/25/2017 KATHRYN CONCEPCION MD Ot Z87.891 PERSONAL HISTORY OF NICOTINE DEPENDENCE 09/26/2017 KATHRYN CONCEPCION MD, Ot 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 09/26/2017 KATHRYN CONCEPCION MD, Ot D64.9 ANEMIA, UNSPECIFIED 09/26/2017 KATHRYN CONCEPCION MD Ot I10 ESSENTIAL (PRIMARY) HYPERTENSION 09/26/2017 KATHRYN CONCEPCION MD Ot Z79.899 OTHER DIRECTOR UTILIZATION MANAGEMENT (CURRENT) DRUG THERAPY 09/26/2017 KATHRYN CONCEPCION MD Ot Z87.891 PERSONAL HISTORY OF NICOTINE DEPENDENCE 09/27/2017 KATHRYN CONCEPCION MD, Ot 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 09/27/2017 KATHRYN CONCEPCION MD, Ot D64.9 ANEMIA, UNSPECIFIED 09/27/2017 KATHRYN CONCEPCION MD, Ot I10 ESSENTIAL (PRIMARY) HYPERTENSION 09/27/2017 KATHRYN CONCEPCION MD Ot Z51.11 ENCOUNTER FOR ANTINEOPLASTIC CHEMOTHERAP 09/27/2017 KATHRYN CONCEPCION MD Ot Z79.899 OTHER PRISON (CURRENT) DRUG THERAPY 09/27/2017 KATHRYN CONCEPCION MD, Ot Z87.891 PERSONAL HISTORY OF NICOTINE DEPENDENCE 11/30/2017 KATHRYN CONCEPCION MD Ot 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 11/30/2017 KATHRYN CONCEPCION MD Ot D64.9 ANEMIA, UNSPECIFIED 11/30/2017 KATHRYN CONCEPCION MD Ot I10 ESSENTIAL (PRIMARY) HYPERTENSION 11/30/2017 KATHRYN CONCEPCION MD Ot Z51.11 ENCOUNTER FOR ANTINEOPLASTIC CHEMOTHERAP 11/30/2017 KATHRYN CONCEPCION MD Ot Z79.899 OTHER DIRECTOR UTILIZATION MANAGEMENT (CURRENT) DRUG THERAPY 11/30/2017 KATHRYN CONCEPCION MD Ot Z87.891 PERSONAL HISTORY OF NICOTINE DEPENDENCE 12/05/2017 KATHRYN CONCEPCION MD, Ot 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 12/05/2017 KATHRYN CONCEPCION MD, Ot D64.9 ANEMIA, UNSPECIFIED 12/05/2017 KATHRYN CONCEPCION MD, Ot I10 ESSENTIAL (PRIMARY) HYPERTENSION 12/05/2017 KATHRYN CONCEPCION MD Ot Z51.11 ENCOUNTER FOR ANTINEOPLASTIC CHEMOTHERAP 12/05/2017 KATHRYN CONCEPCION MD Ot Z79.899 OTHER PRISON (CURRENT) DRUG THERAPY 12/05/2017 KATHRYN CONCEPCION MD Ot Z87.891 PERSONAL HISTORY OF NICOTINE DEPENDENCE 01/16/2018 CASSIE, BOBAN N Ot 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 01/16/2018 CASSIE BOBAN N Ot D64.9 ANEMIA, UNSPECIFIED 01/16/2018 CASSIE, BOBAN N Ot I10 ESSENTIAL (PRIMARY) HYPERTENSION 01/16/2018 CASSIECOLLETTEAN N Ot Z79.899 OTHER PRISON (CURRENT) DRUG THERAPY 01/16/2018 CASSIE BOBAN N Ot Z87.891 PERSONAL HISTORY OF NICOTINE DEPENDENCE 01/17/2018 CASSIE, BOBAN N Ot 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 01/17/2018 CASSIE BOBAN N Ot D64.9 ANEMIA, UNSPECIFIED 01/17/2018 CASSIE, BOBAN N Ot I10 ESSENTIAL (PRIMARY) HYPERTENSION 01/17/2018 CASSIE, BOBAN N Ot Z79.899 OTHER PRISON (CURRENT) DRUG THERAPY 01/17/2018 CASSIE BOBAN N Ot Z87.891 PERSONAL HISTORY OF NICOTINE DEPENDENCE 03/05/2018 CASSIE, BOBAN N Ot 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 03/05/2018 CASSIE, BOBAN N Ot D64.9 ANEMIA, UNSPECIFIED 03/05/2018 CASSIE, BOBAN N Ot I10 ESSENTIAL (PRIMARY) HYPERTENSION 03/05/2018 CASSIE, BOBAN N Ot Z79.899 OTHER PRISON (CURRENT) DRUG THERAPY 03/05/2018 CASSIE, BOBAN N Ot Z87.891 PERSONAL HISTORY OF NICOTINE DEPENDENCE 03/06/2018 CASSIE, BOBAN N Ot 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 03/06/2018 CASSIE, BOBAN N Ot D64.9 ANEMIA, UNSPECIFIED 03/06/2018 CASSIE, BOBAN N Ot I10 ESSENTIAL (PRIMARY) HYPERTENSION 03/06/2018 CASSIE, BOBAN N Ot Z79.899 OTHER DIRECTOR UTILIZATION MANAGEMENT (CURRENT) DRUG THERAPY 03/06/2018 CASSIE, BOBAN N Ot Z87.891 PERSONAL HISTORY OF NICOTINE DEPENDENCE 03/22/2018 CASSIE, BOBAN N Ot 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 03/22/2018 CASSIE, BOBAN N Ot D64.9 ANEMIA, UNSPECIFIED 03/22/2018 CASSIE, BOBAN N Ot I10 ESSENTIAL (PRIMARY) HYPERTENSION 03/22/2018 CASSIE, BOBAN N Ot Z79.899 OTHER DIRECTOR UTILIZATION MANAGEMENT (CURRENT) DRUG THERAPY 03/22/2018 CASSIE, BOBAN N Ot Z87.891 PERSONAL HISTORY OF NICOTINE DEPENDENCE 03/27/2018 CASSIE, BOBAN N Ot 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 03/27/2018 CASSIE, BOBAN N Ot D64.9 ANEMIA, UNSPECIFIED 03/27/2018 CASSIE, BOBAN N Ot I10 ESSENTIAL (PRIMARY) HYPERTENSION 03/27/2018 CASSIE, BOBAN N Ot Z79.899 OTHER PRISON (CURRENT) DRUG THERAPY 03/27/2018 CASSIE, BOBAN N Ot Z87.891 PERSONAL HISTORY OF NICOTINE DEPENDENCE 03/28/2018 CASSIE, BOBAN N Ot 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 03/28/2018 CASSIE, BOBAN N Ot D64.9 ANEMIA, UNSPECIFIED 03/28/2018 CASSIE, BOBAN N Ot I10 ESSENTIAL (PRIMARY) HYPERTENSION 03/28/2018 CASSIE, BOBAN N Ot Z79.899 OTHER PRISON (CURRENT) DRUG THERAPY 03/28/2018 CASSIECARMEL TADEO Reece Ot Z87.891 PERSONAL HISTORY OF NICOTINE DEPENDENCE 04/03/2018 CASSIE, COLLETTEAMANUEL N Ot 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 04/03/2018 CASSIE, CARMEL N Ot D64.9 ANEMIA, UNSPECIFIED 04/03/2018 CASSIE COLLETTEAMANUEL N Ot I10 ESSENTIAL (PRIMARY) HYPERTENSION 04/03/2018 CASSIECARMEL Ot Z51.11 ENCOUNTER FOR ANTINEOPLASTIC CHEMOTHERAP 04/03/2018 CASSIECARMEL N Ot Z79.899 OTHER DIRECTOR UTILIZATION MANAGEMENT (CURRENT) DRUG THERAPY 04/03/2018 CASSIE, COLLETTEAMANUEL N Ot Z87.891 PERSONAL HISTORY OF NICOTINE DEPENDENCE 05/17/2018 CASSIE COLLETTEAMANUEL Reece Ot 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 05/17/2018 CASSIE, COLLETTEAMANUEL N Ot D64.9 ANEMIA, UNSPECIFIED 05/17/2018 CASSIECARMEL N Ot I10 ESSENTIAL (PRIMARY) HYPERTENSION 05/17/2018 CASSIECARMEL TADEO Ot Z51.11 ENCOUNTER FOR ANTINEOPLASTIC CHEMOTHERAP 05/17/2018 CARMEL MATTHEWS N Ot Z79.899 OTHER PRISON (CURRENT) DRUG THERAPY 05/17/2018 CARMEL MATTHEWS Ot Z87.891 PERSONAL HISTORY OF NICOTINE DEPENDENCE 05/27/2018 ANGEL ZARATE DO Ot K57.30 DVRTCLOS OF LG INT W/O PERFORATION OR AB 05/27/2018 ANGEL ZARATE DO Ot 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 05/27/2018 ANGEL ZARATE DO Ot R31.9 HEMATURIA, UNSPECIFIED 06/05/2018 CARMEL MATTHEWS Ot 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 06/05/2018 CARMEL MATTHEWS Ot D64.9 ANEMIA, UNSPECIFIED 06/05/2018 CASSIECARMEL N Ot I10 ESSENTIAL (PRIMARY) HYPERTENSION 06/05/2018 CASSIECARMEL TADEO N Ot Z51.11 ENCOUNTER FOR ANTINEOPLASTIC CHEMOTHERAP 06/05/2018 CARMEL MATTHEWS N Ot Z79.899 OTHER PRISON (CURRENT) DRUG THERAPY 06/05/2018 CARMEL MATTHEWS Ot Z87.891 PERSONAL HISTORY OF NICOTINE DEPENDENCE 06/17/2018 ANGEL ZARATE DO Ot K57.30 DVRTCLOS OF LG INT W/O PERFORATION OR AB 06/17/2018 GELLENDER DO, ANGEL Puga Ot 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 06/17/2018 GELLENDER DO, ANGEL Puga Ot R31.9 HEMATURIA, UNSPECIFIED 06/19/2018 GELLENDER DO, ANGEL Puga Ot K57.30 DVRTCLOS OF LG INT W/O PERFORATION OR AB 06/19/2018 GELLENDER DO, ANGEL Puga Ot 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 06/19/2018 GELLENDER DO, ANGEL Puga Ot R31.9 HEMATURIA, UNSPECIFIED 10/23/2018 CASSIE, CARMEL N Ot 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 10/23/2018 CASSIECARMEL N Ot D64.9 ANEMIA, UNSPECIFIED 10/23/2018 CASSIE BOBAN N Ot I10 ESSENTIAL (PRIMARY) HYPERTENSION 10/23/2018 CASSIECARMEL TADEO N Ot Z51.11 ENCOUNTER FOR ANTINEOPLASTIC CHEMOTHERAP 10/23/2018 CASSIECARMEL TADEO N Ot Z79.899 OTHER PRISON (CURRENT) DRUG THERAPY 10/23/2018 CASSIECARMEL N Ot Z87.891 PERSONAL HISTORY OF NICOTINE DEPENDENCE 10/24/2018 CASSIECAREML N Ot 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 10/24/2018 CASSIECARMEL N Ot D64.9 ANEMIA, UNSPECIFIED 10/24/2018 CASSIE BOBAN N Ot I10 ESSENTIAL (PRIMARY) HYPERTENSION 10/24/2018 CASSIECARMEL N Ot Z51.11 ENCOUNTER FOR ANTINEOPLASTIC CHEMOTHERAP 10/24/2018 CASSIECARMEL N Ot Z79.899 OTHER PRISON (CURRENT) DRUG THERAPY 10/24/2018 CASSIECARMEL N Ot Z87.891 PERSONAL HISTORY OF NICOTINE DEPENDENCE 12/10/2018 CASSIECARMEL N Ot 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 12/10/2018 CASSIE BOBAMANUEL N Ot D64.9 ANEMIA, UNSPECIFIED 12/10/2018 CASSIE BOBAN N Ot I10 ESSENTIAL (PRIMARY) HYPERTENSION 12/10/2018 CASSIECARMEL N Ot Z51.11 ENCOUNTER FOR ANTINEOPLASTIC CHEMOTHERAP 12/10/2018 CASSIECARMEL N Ot Z79.899 OTHER PRISON (CURRENT) DRUG THERAPY 12/10/2018 CARMEL MATTHEWS Ot Z87.891 PERSONAL HISTORY OF NICOTINE DEPENDENCE 12/12/2018 CARMEL MATTHEWS Ot 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 Results Test Result Range ANEMIA ANALYZER - 04/16/17 10:38 Blood leukocytes automated count (number/volume) 10.8 10*3/uL 4.3-11.0 Blood erythrocytes automated count (number/volume) 4.00 10*6/uL 4.35-5.85 Venous blood hemoglobin measurement (mass/volume) 10.0 g/dL 13.3-17.7 Blood hematocrit (volume fraction) 35 % 40-54 Automated erythrocyte mean corpuscular volume 87 [foz_us] 80-99 Automated erythrocyte mean corpuscular hemoglobin (mass per erythrocyte) 25 pg 25-34 Automated erythrocyte mean corpuscular hemoglobin concentration measurement ( mass/volume) 29 g/dL 32-36 Automated erythrocyte distribution width ratio 18.5 % 10.0-14.5 Automated blood platelet count (count/volume) 299 10*3/uL 130-400 Automated blood platelet mean volume measurement 9.1 [foz_us] 7.4-10.4 Automated blood neutrophils/100 leukocytes 71 % 42-75 Automated blood lymphocytes/100 leukocytes 20 % 12-44 Blood monocytes/100 leukocytes 4 % NRG Automated blood eosinophils/100 leukocytes 2 % 0-10 Automated blood basophils/100 leukocytes 0 % 0-10 Blood neutrophils automated count (number/volume) 7.7 10*3 1.8-7.8 Blood lymphocytes automated count (number/volume) 2.1 10*3 1.0-4.0 Blood monocytes automated count (number/volume) 0.9 10*3 0.0-1.0 Automated eosinophil count 0.2 10*3/uL 0.0-0.3 Automated blood basophil count (count/volume) 0.0 10*3/uL 0.0-0.1 Manual blood segmented neutrophils/100 leukocytes 76 % NRG Blood band neutrophils/100 leukocytes 1 % NRG Manual blood lymphocytes/100 leukocytes 19 % NRG Manual eosinophils/100 leukocytes in nose 0 % NRG Manual blood basophils/100 leukocytes 0 % NRG Blood anisocytosis detection by light microscopy MODERATE NRG Blood reticulocytes count (number/volume) 46 10*9/L 24- 90 Blood reticulocytes/100 erythrocytes 1.16 % 0.50-2.40 Serum or plasma folate measurement (mass/volume) - 04/16/17 10:38 Serum or plasma folate measurement (mass/volume) 6.9 ng/mL 1.5-24.0 Serum iron and total iron binding capacity panel - 04/16/17 10:38 Serum or plasma iron measurement (mass/volume) 34 L 40- 180 Total iron binding capacity and transferrin saturation measurement 11 L 15-50 Iron binding capacity [mass/volume] in serum or plasma 303 ug/dL 280-380 UIBC (unsaturated iron binding capacity) 269 ug/dL NRG Serum or plasma ferritin measurement (mass/volume) 70.0 ng/mL 25.0-300.0 Cyanocobalamin measurement - 04/16/17 10:38 Vitamin B12 360 pg/mL 200-1000 Complete blood count (CBC) with automated white blood cell (WBC) differential - 08/06/17 15:15 Blood leukocytes automated count (number/volume) 6.5 10*3/uL 4.3-11.0 Blood erythrocytes automated count (number/volume) 3.21 10*6/uL 4.35-5.85 Venous blood hemoglobin measurement (mass/volume) 8.5 g/dL 13.3-17.7 Blood hematocrit (volume fraction) 29 % 40-54 Automated erythrocyte mean corpuscular volume 91 [foz_us] 80-99 Automated erythrocyte mean corpuscular hemoglobin (mass per erythrocyte) 27 pg 25-34 Automated erythrocyte mean corpuscular hemoglobin concentration measurement ( mass/volume) 29 g/dL 32-36 Automated erythrocyte distribution width ratio 18.3 % 10.0-14.5 Automated blood platelet count (count/volume) 27 10*3/uL 130-400 Automated blood platelet mean volume measurement 10.3 [foz_us] 7.4-10.4 Automated blood neutrophils/100 leukocytes 66 % 42-75 Automated blood lymphocytes/100 leukocytes 22 % 12-44 Blood monocytes/100 leukocytes 11 % 0-12 Automated blood eosinophils/100 leukocytes 1 % 0-10 Automated blood basophils/100 leukocytes 0 % 0-10 Blood neutrophils automated count (number/volume) 4.3 10*3 1.8-7.8 Blood lymphocytes automated count (number/volume) 1.5 10*3 1.0-4.0 Blood monocytes automated count (number/volume) 0.7 10*3 0.0-1.0 Automated eosinophil count 0.1 10*3/uL 0.0-0.3 Automated blood basophil count (count/volume) 0.0 10*3/uL 0.0-0.1 [id number] - 08/06/17 15:15 [id number] SPECIMEN AVAILABLE [facility] * Reference lab test name - 08/08/17 13:50 * Reference lab test results CHROM KIM EVAL [facility] Complete blood count (CBC) with automated white blood cell (WBC) differential - 09/10/17 08:05 Blood leukocytes automated count (number/volume) 6.6 10*3/uL 4.3-11.0 Blood erythrocytes automated count (number/volume) 3.82 10*6/uL 4.35-5.85 Venous blood hemoglobin measurement (mass/volume) 10.3 g/dL 13.3-17.7 Blood hematocrit (volume fraction) 35 % 40-54 Automated erythrocyte mean corpuscular volume 92 [foz_us] 80-99 Automated erythrocyte mean corpuscular hemoglobin (mass per erythrocyte) 27 pg 25-34 Automated erythrocyte mean corpuscular hemoglobin concentration measurement ( mass/volume) 29 g/dL 32-36 Automated erythrocyte distribution width ratio 18.2 % 10.0-14.5 Automated blood platelet count (count/volume) 56 10*3/uL 130-400 Automated blood platelet mean volume measurement 10.7 [foz_us] 7.4-10.4 Automated blood neutrophils/100 leukocytes 74 % 42-75 Automated blood lymphocytes/100 leukocytes 15 % 12-44 Blood monocytes/100 leukocytes 11 % 0-12 Automated blood eosinophils/100 leukocytes 0 % 0-10 Automated blood basophils/100 leukocytes 0 % 0-10 Blood neutrophils automated count (number/volume) 4.9 10*3 1.8-7.8 Blood lymphocytes automated count (number/volume) 1.0 10*3 1.0-4.0 Blood monocytes automated count (number/volume) 0.7 10*3 0.0-1.0 Automated eosinophil count 0.0 10*3/uL 0.0-0.3 Automated blood basophil count (count/volume) 0.0 10*3/uL 0.0-0.1 Comprehensive metabolic panel - 09/10/17 08:05 Serum or plasma sodium measurement (moles/volume) 142 mmol/L 135-145 Serum or plasma potassium measurement (moles/volume) 4.4 mmol/L 3.6-5.0 Serum or plasma chloride measurement (moles/volume) 105 mmol/L 98-107 Carbon dioxide 24 mmol/L 21-32 Serum or plasma anion gap determination (moles/volume) 13 mmol/L 5-14 Serum or plasma urea nitrogen measurement (mass/volume) 21 mg/dL 7-18 Serum or plasma creatinine measurement (mass/volume) 1.01 mg/dL 0.60-1.30 Serum or plasma urea nitrogen/creatinine mass ratio 21 NRG Serum or plasma creatinine measurement with calculation of estimated glomerular filtration rate > NRG Serum or plasma glucose measurement (mass/volume) 93 mg/dL 70-105 Serum or plasma calcium measurement (mass/volume) 10.5 mg/dL 8.5-10.1 Serum or plasma total bilirubin measurement (mass/volume) 0.7 mg/dL 0.1-1.0 Serum or plasma alkaline phosphatase measurement (enzymatic activity/volume) 103 U/L 40-136 Serum or plasma aspartate aminotransferase measurement (enzymatic activity/ volume) 12 U/L 5-34 Serum or plasma alanine aminotransferase measurement (enzymatic activity/volume ) 8 U/L 0-55 Serum or plasma protein measurement (mass/volume) 9.4 g/dL 6.4-8.2 Serum or plasma albumin measurement (mass/volume) 3.6 g/dL 3.2-4.5 Complete blood count (CBC) with automated white blood cell (WBC) differential - 11/21/17 08:56 Blood leukocytes automated count (number/volume) 5.7 10*3/uL 4.3-11.0 Blood erythrocytes automated count (number/volume) 4.53 10*6/uL 4.35-5.85 Venous blood hemoglobin measurement (mass/volume) 13.1 g/dL 13.3-17.7 Blood hematocrit (volume fraction) 42 % 40-54 Automated erythrocyte mean corpuscular volume 94 [foz_us] 80-99 Automated erythrocyte mean corpuscular hemoglobin (mass per erythrocyte) 29 pg 25-34 Automated erythrocyte mean corpuscular hemoglobin concentration measurement ( mass/volume) 31 g/dL 32-36 Automated erythrocyte distribution width ratio 16.0 % 10.0-14.5 Automated blood platelet count (count/volume) 208 10*3/uL 130-400 Automated blood platelet mean volume measurement 9.8 [foz_us] 7.4-10.4 Automated blood neutrophils/100 leukocytes 60 % 42-75 Automated blood lymphocytes/100 leukocytes 31 % 12-44 Blood monocytes/100 leukocytes 8 % 0-12 Automated blood eosinophils/100 leukocytes 1 % 0-10 Automated blood basophils/100 leukocytes 0 % 0-10 Blood neutrophils automated count (number/volume) 3.4 10*3 1.8-7.8 Blood lymphocytes automated count (number/volume) 1.8 10*3 1.0-4.0 Blood monocytes automated count (number/volume) 0.5 10*3 0.0-1.0 Automated eosinophil count 0.1 10*3/uL 0.0-0.3 Automated blood basophil count (count/volume) 0.0 10*3/uL 0.0-0.1 Comprehensive metabolic panel - 11/21/17 08:56 Serum or plasma sodium measurement (moles/volume) 142 mmol/L 135-145 Serum or plasma potassium measurement (moles/volume) 4.1 mmol/L 3.6-5.0 Serum or plasma chloride measurement (moles/volume) 103 mmol/L 98-107 Carbon dioxide 28 mmol/L 21-32 Serum or plasma anion gap determination (moles/volume) 11 mmol/L 5-14 Serum or plasma urea nitrogen measurement (mass/volume) 14 mg/dL 7-18 Serum or plasma creatinine measurement (mass/volume) 0.99 mg/dL 0.60-1.30 Serum or plasma urea nitrogen/creatinine mass ratio 14 NRG Serum or plasma creatinine measurement with calculation of estimated glomerular filtration rate > NRG Serum or plasma glucose measurement (mass/volume) 99 mg/dL 70-105 Serum or plasma calcium measurement (mass/volume) 10.1 mg/dL 8.5-10.1 Serum or plasma total bilirubin measurement (mass/volume) 0.6 mg/dL 0.1-1.0 Serum or plasma alkaline phosphatase measurement (enzymatic activity/volume) 99 U/L 40-136 Serum or plasma aspartate aminotransferase measurement (enzymatic activity/ volume) 15 U/L 5-34 Serum or plasma alanine aminotransferase measurement (enzymatic activity/volume ) 11 U/L 0-55 Serum or plasma protein measurement (mass/volume) 8.6 g/dL 6.4-8.2 Serum or plasma albumin measurement (mass/volume) 3.9 g/dL 3.2-4.5 Lactate dehydrogenase 1 [enzymatic activity/volume] in serum or plasma - 08:56 Lactate dehydrogenase 1 [enzymatic activity/volume] in serum or plasma 122 U/L 125-220 Serum ejza-0-gziptovbauhrs measurement (mass/volume) - 11/21/17 08:56 Vvqj-9-Dobleeyfilras [Mass/volume] in Serum or Plasma 6.96 % 0.00-1.85 Automated blood complete blood count (hemogram) panel - 05/24/18 08:59 Blood leukocytes automated count (number/volume) 6.2 10*3/uL 4.3-11.0 Blood erythrocytes automated count (number/volume) 4.40 10*6/uL 4.35-5.85 Venous blood hemoglobin measurement (mass/volume) 13.8 g/dL 13.3-17.7 Blood hematocrit (volume fraction) 42 % 40-54 Automated erythrocyte mean corpuscular volume 95 [foz_us] 80-99 Automated erythrocyte mean corpuscular hemoglobin (mass per erythrocyte) 31 pg 25-34 Automated erythrocyte mean corpuscular hemoglobin concentration measurement ( mass/volume) 33 g/dL 32-36 Automated erythrocyte distribution width ratio 13.7 % 10.0-14.5 Automated blood platelet count (count/volume) 250 10*3/uL 130-400 Automated blood platelet mean volume measurement 10.0 [foz_us] 7.4-10.4 Whole blood basic metabolic panel - 05/24/18 08:59 Serum or plasma sodium measurement (moles/volume) 136 mmol/L 135-145 Serum or plasma potassium measurement (moles/volume) 4.4 mmol/L 3.6-5.0 Serum or plasma chloride measurement (moles/volume) 104 mmol/L 98-107 Carbon dioxide 19 mmol/L 21-32 Serum or plasma anion gap determination (moles/volume) 13 mmol/L 5-14 Serum or plasma urea nitrogen measurement (mass/volume) 16 mg/dL 7-18 Serum or plasma creatinine measurement (mass/volume) 1.31 mg/dL 0.60-1.30 Serum or plasma urea nitrogen/creatinine mass ratio 12 NRG Serum or plasma creatinine measurement with calculation of estimated glomerular filtration rate 53 NRG Serum or plasma glucose measurement (mass/volume) 108 mg/dL 70-105 Serum or plasma calcium measurement (mass/volume) 9.6 mg/dL 8.5-10.1 Encounters ACCT No. Visit Date/Time Discharge Status Pt. Type Provider Facility Loc./Unit Complaint [id number] 12/11/2018 00:07:00 12/11/2018 23:59:59 CLS Preadmit CARMEL MATTHEWS [facility] ONC [id number] 2018 08:44:00 12/10/2018 00:01:00 DIS Outpatient CARMEL MATTHEWS [facility] ONC [id number] 04/17/2018 08:18:00 06/25/2018 00:01:00 DIS Outpatient CARMEL MATTHEWS [facility] ONC [id number] 05/24/2018 08:45:00 05/24/2018 23:59:59 CLS Outpatient ANGEL ZARATE DO [facility] RAD BLOOD IN URINE, PAINLESS [id number] 02/07/2018 08:45:00 03/05/2018 00:01:00 DIS Outpatient CARMEL MATTHEWS [facility] ONC [id number] 11/21/2017 08:48:00 12/05/2017 09:19:00 DIS Outpatient KATHRYN CONCEPCION MD [facility] ONC [id number] 09/20/2017 08:23:00 09/25/2017 11:16:00 DIS Outpatient CARMEL MATTHEWS [facility] ONC [id number] 09/10/2017 07:35:00 09/10/2017 09:01:00 DIS Emergency ERICKA BERG, NAREN Pugh [facility] ER SOMETHING STUCK IN THROAT [id number] 08/08/2017 12:47:00 08/23/2017 10:58:00 DIS Outpatient CARMEL MATTHEWS [facility] ONC [id number] 08/09/2017 09:49:00 08/09/2017 23:59:59 CLS Outpatient CARMEL MATTHEWS [facility] RAD THROMBOCYTOPENIA D69.6 [id number] 08/06/2017 14:55:00 08/06/2017 23:59:59 CLS Outpatient ANGEL ZARATE DO [facility] LAB THROMBOCYTOPENIA [id number] 04/16/2017 10:24:00 04/16/2017 23:59:59 CLS Outpatient ANGEL ZARATE DO [facility] LAB ANEMIA [id number] 05/31/2016 09:12:00 05/31/2016 12:25:00 DIS Outpatient KRISTIE GRIFFIN MD [facility] SDC DYSPHAGIA;REFLUX [id number] 05/24/2016 08:22:00 05/24/2016 11:37:00 DIS Emergency INES BERG, MIRELA Crowder [facility] ER FB/UNABLE TO SWALLOW [id number] 02/08/2016 10:56:00 02/08/2016 23:59:59 CLS Outpatient ANGEL ZARATE DO [facility] RAD SOB,COUGH [id number] 09/13/2015 13:17:00 09/15/2015 11:55:00 DIS Inpatient ANGEL ZARATE DO [facility] 4TH LEUKOCYTOSIS UTI [id number] 09/13/2015 10:07:00 09/13/2015 23:59:59 CLS Outpatient ANGEL ZARATE DO [facility] LAB UTI,HEMATURIA [id number] 09/03/2015 16:41:00 09/03/2015 17:33:00 DIS Emergency LIZBETH OWEN MD [facility] ER DIFFICULTY SWALLOWING [id number] 05/08/2013 08:40:00 05/28/2013 08:50:00 DIS Outpatient IGNACIO DESOUZA, ALYCE W [facility] REHAB S/P LEFT TKA [id number] 03/23/2013 00:14:00 03/23/2013 01:00:00 DIS Emergency PAMELLA MOLINA MD [facility] ER LT KNEE BLEEDING; POST SURGERY [id number] 09/13/2015 10:07:00 Document Registration [id number] 09/13/2015 10:07:00 Document Registration [id number] 07/02/2012 14:45:00 Document Registration [id number] 07/01/2012 10:00:00 Document Registration [id number] 04/04/2012 12:47:00 Document Registration [id number] 03/28/2012 14:19:00 Document Registration [id number] 05/15/2011 09:24:00 Document Registration [id number] 05/12/2011 11:24:00 Document Registration [id number] 05/10/2011 11:29:00 Document Registration [id number] 05/09/2011 11:30:00 Document Registration [id number] 05/05/2011 14:48:00 Document Registration [id number] 04/23/2011 19:57:00 Document Registration [id number] 04/20/2011 05:49:00 Document Registration [id number] 04/17/2011 09:38:00 Document Registration [id number] 04/28/2010 00:38:00 Document Registration
[2019-02-26] MEDS ORDERED: ALLOPURINOL 300 MG (18:48)
[2019-02-26] MEDS ORDERED: FINASTERIDE 5 MG (18:48)
[2019-02-26] MEDS ORDERED: TAMSULOSIN 0.4 MG (18:48)
[2019-02-26] MEDS ORDERED: AMLODIPINE BESYLATE 5MG TABLET (18:48)
[2019-02-26] MEDS ORDERED: meTOprolol 5 MG/5 ML (LOPRESSOR) VIAL IV ONE ×2 (19:00→20:30)
[2019-02-26 19:06] LABS: BASOPHILS % (AUTO) 0 % (0-10); EOSINOPHILS % (AUTO) 0 % (0-10); HEMATOCRIT 45 % (40-54); HEMOGLOBIN 15.3 G/DL (13.3-17.7); LYMPHOCYTES # (AUTO) 1.1 X 10^3 (1.0-4.0); LYMPHOCYTES % (AUTO) 7 % (12-44); MEAN CORPUSCULAR HEMOGLOBIN 31 PG (25-34); MEAN CORPUSCULAR HGB CONC 34 G/DL (32-36); MEAN CORPUSCULAR VOLUME 90 FL (80-99); MEAN PLATELET VOLUME 10.5 FL (7.4-10.4); MONOCYTES % (AUTO) 6 % (0-12); NEUTROPHILS # (AUTO) 13.1 X 10^3 (1.8-7.8); NEUTROPHILS % (AUTO) 87 % (42-75); PLATELET COUNT 228 10^3/uL (130-400); RED CELL DISTRIBUTION WIDTH 13.6 % (10.0-14.5); WHITE BLOOD COUNT 15.2 10^3/uL (4.3-11.0)
--- NOTE | 2019-02-26 19:07 | Diagnostic Imaging Report ---
PATIENT HISTORY: Shortness of air. TECHNIQUE: Frontal view of the chest. COMPARISON: 02/08/2016 FINDINGS: There is mild elevation of the left hemidiaphragm. There are bibasilar airspace opacities which appear increased compared to the prior exam. No significant pleural effusion or pneumothorax is seen. The cardiac silhouette is stable in size. There is aortic atherosclerosis. IMPRESSION: Mild bibasilar opacities appear increased since the prior exam, most likely atelectasis, less likely developing infiltrate. Dictated by: Dictated on workstation # [id number]
[2019-02-26] MEDS ORDERED: RT-LEVALBUTEROL (XOPENEX) 1.25 MG/3 ML NEB NON-FORMULARY ONE (19:08)
[2019-02-26 19:12] LABS: BILIRUBIN,URINE NEGATIVE (NEGATIVE); CLARITY,URINE CLEAR; COLOR,URINE YELLOW; GLUCOSE, URINE (UA) NEGATIVE (NEGATIVE); KETONES,URINE NEGATIVE (NEGATIVE); LEUKOCYTE ESTERASE ,URINE NEGATIVE (NEGATIVE); NITRITE,URINE NEGATIVE (NEGATIVE); PH,URINE 8 (5-9); PROTEIN,URINE 1+ (NEGATIVE); UROBILINOGEN,URINE 1 MG/DL (NORMAL)
[2019-02-26] MEDS ORDERED: ASPIRIN 81 MG CHEW (CHILDREN'S ASA) PO ONE (19:15)
[2019-02-26] MEDS ORDERED: NS IV 500 ML 500 ML IV SCH (19:15)
[2019-02-26] MEDS ORDERED: RT-LEVALBUTEROL (XOPENEX) 1.25 MG/3 ML NEB NON-FORMULARY INH SCH ×2 (19:15→19:45)
[2019-02-26] MEDS ORDERED: DILTIAZEM INJECTION 125 MG in NS (IVPB) 100 ML IV SCH ×2 (19:15→19:45)
[2019-02-26 19:18] LABS: FIBRIN DEGRADATION PRODUCTS 0.59 UG/ML (0.00-0.49); PROTHROMBIN TIME PATIENT 13.6 SEC (12.2-14.7)
[2019-02-26 19:24] LABS: BACTERIA,URINE NEGATIVE /HPF; SQUAMOUS EPITHELIAL CELL,UR 0-2 /HPF; WBC,URINE RARE /HPF
[2019-02-26 19:24] LABS: ALANINE AMINOTRANSFERASE 16 U/L (0-55); ALBUMIN 4.6 GM/DL (3.2-4.5); ALKALINE PHOSPHATASE 103 U/L (40-136); BILIRUBIN,TOTAL 0.9 MG/DL (0.1-1.0); BUN/CREATININE RATIO 15; CALCIUM 10.3 MG/DL (8.5-10.1); CARBON DIOXIDE 28 MMOL/L (21-32); CHLORIDE 100 MMOL/L (98-107); CREATINE KINASE 209 U/L (30-200); CREATININE SERUM 1.03 MG/DL (0.60-1.30); GFR ESTIMATED > 60; GLUCOSE 102 MG/DL (70-105); POTASSIUM 4.3 MMOL/L (3.6-5.0); SODIUM 139 MMOL/L (135-145); TOTAL PROTEIN 7.7 GM/DL (6.4-8.2)
[2019-02-26 19:29] LABS: CREATINE KINASE MB 6.6 NG/ML (<6.6)
[2019-02-26] MEDS ORDERED: LORazepam INJ 2 MG/ML (ATIVAN) VIAL ONE (19:29)
[2019-02-26] MEDS ORDERED: IOHEXOL 350 MG/ML 150 ML (OMNIPAQUE 350) VIAL IV ONE ×2 (19:30→20:00)
[2019-02-26] MEDS ORDERED: LORazepam INJ 2 MG/ML (ATIVAN) VIAL IVP PRN (19:30)
[2019-02-26] MEDS ORDERED: HOLD METFORMIN - RECEIVED CONTRAST 20 ML VIAL IV SCH ×2 (19:30→20:00)
[2019-02-26 19:32] LABS: BAND NEUTROPHILS 1 %; BASOPHILS % (MANUAL) 0 %; EOSINOPHILS % (MANUAL) 0 %; LYMPHOCYTES % (MANUAL) 8 %; MONOCYTES % (MANUAL) 2 %; NEUTROPHILS % (MANUAL) 89 %; RBC MORPH NORMAL
[2019-02-26 19:36] LABS: ABG BASE EXCESS 2.6 MMOL/L (-2.5-2.5); ABG OXYGEN SATURATION 93 % (94-100); ABG PCO2 37 MMHG (35-45); ABG PH 7.47 (7.37-7.43); ABG PO2 82 MMHG (79-93); ABG TCO2 27.1 MMOL/L (21.0-31.0); ALLENS TEST POSITIVE; INSPIRED O2 2L; PATIENT TEMP 99.5; VENTILATOR NO
--- NOTE | 2019-02-26 20:26 | Diagnostic Imaging Report ---
PROCEDURE: CT angiography of the chest with contrast. TECHNIQUE: Multiple contiguous axial images were obtained through the chest after uneventful bolus administration of intravenous contrast. 2D reconstructed CTA MIP acquisitions were also performed. Auto Exposure Controls were utilized during the CT exam to meet ALARA standards for radiation dose reduction. INDICATION: Short of air. FINDINGS: The lungs are clear. There is no effusion or pneumothorax. There is no mediastinal mass or hemorrhage. There is no aortic aneurysm or dissection. There is no pulmonary embolism. IMPRESSION: No acute abnormality is seen. Dictated by: Dictated on workstation # [id number]
[2019-02-26] MEDS ORDERED: ENOXAPARIN 80 MG/0.8 ML (LOVENOX) SYR SC ONE (21:00)
[2019-02-26] MEDS ORDERED: meTOprolol SUCCINATE 100 MG (TOPROL XL) TAB PO ONE (21:00)
--- OUTSIDE RECORDS SUMMARY | 2019-02-26 21:03 | XMS REPORT | Continuity of Care Document ---
Author Author [facility] Organization [facility] Address Unknown Phone Unavailable Allergies Active Description Code Type Severity Reaction Onset Reported/Identified Relationship to Patient Clinical Status Yes FISH FISH Unknown N/A 09/13/2015 Yes prochlorperazine [id number] Drug Allergy Unknown N/A 09/13/2015 Medications There is no data. Problems Date Dx Coded Attending Type Code Diagnosis Diagnosed By 10/25/1057 CARMEL MATTHEWS Ot D69.6 THROMBOCYTOPENIA, UNSPECIFIED 10/25/1057 CARMEL MATTHEWS Ot Z79.899 OTHER USP (CURRENT) DRUG THERAPY 04/28/2010 Ot 719.41 04/20/2011 [...] CHACON MD Ot Y92.[address] IN [facility] NON-INSTITUT (PRIVATE 05/25/2016 MIRELA CHACON MD Ot M47.816 SPONDYLOSIS W/O MYELOPATHY OR RADICULOPA 05/25/2016 MIRELA CHACON MD Ot T18.128A FOOD IN ESOPHAGUS CAUSING OTHER INJURY, 05/25/2016 MIRELA CHACON MD Ot Y92.[address] IN [facility] NON-INSTITUT (PRIVATE 05/26/2016 MIRELA CHACON MD Ot M47.816 SPONDYLOSIS W/O MYELOPATHY OR RADICULOPA 05/26/2016 MIRELA CHACON MD Ot T18.128A FOOD IN ESOPHAGUS CAUSING OTHER INJURY, 05/26/2016 MIRELA CHACON MD Ot Y92.[address] IN [facility] NON-INSTITUT (PRIVATE 05/31/2016 KRISTIE GRIFFIN MD Ot [...] CHACON MD Ot Y92.[address] IN [facility] NON-[facility] (PRIVATE 06/15/2016 GABY BERG, KRISTIE Ot [...] UNSPECIFIED 08/15/2017 CASSIECARMEL N Ot Z79.899 OTHER INTELLIGENCE MANAGER (CURRENT) DRUG THERAPY 08/23/2017 CASSIECARMEL TADEO Ot D69.6 THROMBOCYTOPENIA, UNSPECIFIED 08/23/2017 CASSIE, BOBAMANUEL N Ot Z79.899 OTHER USP (CURRENT) DRUG THERAPY 08/28/2017 AMYDER DOANGEL Edd Ot D69.6 THROMBOCYTOPENIA, UNSPECIFIED 08/30/2017 CASSIECARMEL TADEO Ot 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 08/30/2017 CASSIECARMEL TADEO N Ot D64.9 ANEMIA, UNSPECIFIED 08/30/2017 CASSIECARMEL N Ot I10 ESSENTIAL (PRIMARY) HYPERTENSION 08/30/2017 CASSIECARMEL TADEO N Ot Z79.899 OTHER USP (CURRENT) DRUG THERAPY 08/30/2017 CASSIECARMEL TADEO N [...] SMALL CELL B-CELL LYMPHOMA, UNSPECIFIED 09/16/2017 NAREN BARNETT MD Ot 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 09/16/2017 NAREN [...] 09/25/2017 CARMEL MATTHEWS Reece Ot Z79.899 OTHER USP (CURRENT) DRUG THERAPY 09/25/2017 CARMEL MATTHEWS Reece Ot Z87.891 PERSONAL HISTORY OF NICOTINE DEPENDENCE 09/25/2017 KATHRYN CONCEPCION MD, Ot 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 09/25/2017 KATHRYN CONCEPCION MD Ot D64.9 ANEMIA, UNSPECIFIED 09/25/2017 KATHRYN CONCEPCION MD, Ot I10 ESSENTIAL (PRIMARY) HYPERTENSION 09/25/2017 KATHRYN CONCEPCION MD Ot Z79.899 OTHER INTELLIGENCE MANAGER (CURRENT) DRUG THERAPY 09/25/2017 KATHRYN CONCEPCION MD Ot Z87.891 PERSONAL HISTORY OF NICOTINE DEPENDENCE 09/26/2017 KATHRYN CONCEPCION MD, Ot 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 09/26/2017 KATHRYN CONCEPCION MD, Ot D64.9 ANEMIA, UNSPECIFIED 09/26/2017 KATHRYN CONCEPCION MD Ot I10 ESSENTIAL (PRIMARY) HYPERTENSION 09/26/2017 KATHRYN CONCEPCION MD Ot Z79.899 OTHER INTELLIGENCE MANAGER (CURRENT) DRUG THERAPY 09/26/2017 KATHRYN CONCEPCION MD Ot Z87.891 PERSONAL HISTORY OF NICOTINE DEPENDENCE 09/27/2017 KATHRYN CONCEPCION MD, Ot 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 09/27/2017 KATHRYN CONCEPCION MD, Ot D64.9 ANEMIA, UNSPECIFIED 09/27/2017 KATHRYN CONCEPCION MD, Ot I10 ESSENTIAL (PRIMARY) HYPERTENSION 09/27/2017 KATHRYN CONCEPCION MD Ot Z51.11 ENCOUNTER FOR ANTINEOPLASTIC CHEMOTHERAP 09/27/2017 KATHRYN CONCEPCION MD Ot Z79.899 OTHER USP (CURRENT) DRUG THERAPY 09/27/2017 KATHRYN CONCEPCION MD, Ot Z87.891 PERSONAL HISTORY OF NICOTINE DEPENDENCE 11/30/2017 KATHRYN CONCEPCION MD Ot 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 11/30/2017 KATHRYN CONCEPCION MD Ot D64.9 ANEMIA, UNSPECIFIED 11/30/2017 KATHRYN CONCEPCION MD Ot I10 ESSENTIAL (PRIMARY) HYPERTENSION 11/30/2017 KATHRYN CONCEPCION MD Ot Z51.11 ENCOUNTER FOR ANTINEOPLASTIC CHEMOTHERAP 11/30/2017 KATHRYN CONCEPCION MD Ot Z79.899 OTHER INTELLIGENCE MANAGER (CURRENT) DRUG THERAPY 11/30/2017 KATHRYN CONCEPCION MD Ot Z87.891 PERSONAL HISTORY OF NICOTINE DEPENDENCE 12/05/2017 KATHRYN CONCEPCION MD, Ot 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 12/05/2017 KATHRYN CONCEPCION MD, Ot D64.9 ANEMIA, UNSPECIFIED 12/05/2017 KATHRYN CONCEPCION MD, Ot I10 ESSENTIAL (PRIMARY) HYPERTENSION 12/05/2017 KATHRYN CONCEPCION MD Ot Z51.11 ENCOUNTER FOR ANTINEOPLASTIC CHEMOTHERAP 12/05/2017 KATHRYN CONCEPCION MD Ot Z79.899 OTHER USP (CURRENT) DRUG THERAPY 12/05/2017 KATHRYN CONCEPCION MD Ot Z87.891 PERSONAL HISTORY OF NICOTINE DEPENDENCE 01/16/2018 CASSIE, BOBAN N Ot 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 01/16/2018 CASSIE BOBAN N Ot D64.9 ANEMIA, UNSPECIFIED 01/16/2018 CASSIE, BOBAN N Ot I10 ESSENTIAL (PRIMARY) HYPERTENSION 01/16/2018 CASSIECOLLETTEAN N Ot Z79.899 OTHER USP (CURRENT) DRUG THERAPY 01/16/2018 CASSIE BOBAN N Ot Z87.891 PERSONAL HISTORY OF NICOTINE DEPENDENCE 01/17/2018 CASSIE, BOBAN N Ot 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 01/17/2018 CASSIE BOBAN N Ot D64.9 ANEMIA, UNSPECIFIED 01/17/2018 CASSIE, BOBAN N Ot I10 ESSENTIAL (PRIMARY) HYPERTENSION 01/17/2018 CASSIE, BOBAN N Ot Z79.899 OTHER USP (CURRENT) DRUG THERAPY 01/17/2018 CASSIE BOBAN N Ot Z87.891 PERSONAL HISTORY OF NICOTINE DEPENDENCE 03/05/2018 CASSIE, BOBAN N Ot 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 03/05/2018 CASSIE, BOBAN N Ot D64.9 ANEMIA, UNSPECIFIED 03/05/2018 CASSIE, BOBAN N Ot I10 ESSENTIAL (PRIMARY) HYPERTENSION 03/05/2018 CASSIE, BOBAN N Ot Z79.899 OTHER USP (CURRENT) DRUG THERAPY 03/05/2018 CASSIE, BOBAN N Ot Z87.891 PERSONAL HISTORY OF NICOTINE DEPENDENCE 03/06/2018 CASSIE, BOBAN N Ot 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 03/06/2018 CASSIE, BOBAN N Ot D64.9 ANEMIA, UNSPECIFIED 03/06/2018 CASSIE, BOBAN N Ot I10 ESSENTIAL (PRIMARY) HYPERTENSION 03/06/2018 CASSIE, BOBAN N Ot Z79.899 OTHER INTELLIGENCE MANAGER (CURRENT) DRUG THERAPY 03/06/2018 CASSIE, BOBAN N Ot Z87.891 PERSONAL HISTORY OF NICOTINE DEPENDENCE 03/22/2018 CASSIE, BOBAN N Ot 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 03/22/2018 CASSIE, BOBAN N Ot D64.9 ANEMIA, UNSPECIFIED 03/22/2018 CASSIE, BOBAN N Ot I10 ESSENTIAL (PRIMARY) HYPERTENSION 03/22/2018 CASSIE, BOBAN N Ot Z79.899 OTHER INTELLIGENCE MANAGER (CURRENT) DRUG THERAPY 03/22/2018 CASSIE, BOBAN N Ot Z87.891 PERSONAL HISTORY OF NICOTINE DEPENDENCE 03/27/2018 CASSIE, BOBAN N Ot 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 03/27/2018 CASSIE, BOBAN N Ot D64.9 ANEMIA, UNSPECIFIED 03/27/2018 CASSIE, BOBAN N Ot I10 ESSENTIAL (PRIMARY) HYPERTENSION 03/27/2018 CASSIE, BOBAN N Ot Z79.899 OTHER USP (CURRENT) DRUG THERAPY 03/27/2018 CASSIE, BOBAN N Ot Z87.891 PERSONAL HISTORY OF NICOTINE DEPENDENCE 03/28/2018 CASSIE, BOBAN N Ot 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 03/28/2018 CASSIE, BOBAN N Ot D64.9 ANEMIA, UNSPECIFIED 03/28/2018 CASSIE, BOBAN N Ot I10 ESSENTIAL (PRIMARY) HYPERTENSION 03/28/2018 CASSIE, BOBAN N Ot Z79.899 OTHER USP (CURRENT) DRUG THERAPY 03/28/2018 CASSIECARMEL TADEO Reece Ot Z87.891 PERSONAL HISTORY OF NICOTINE DEPENDENCE 04/03/2018 CASSIE, COLLETTEAMANUEL N Ot 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 04/03/2018 CASSIE, CARMEL N Ot D64.9 ANEMIA, UNSPECIFIED 04/03/2018 CASSIE COLLETTEAMANUEL N Ot I10 ESSENTIAL (PRIMARY) HYPERTENSION 04/03/2018 CASSIECARMEL Ot Z51.11 ENCOUNTER FOR ANTINEOPLASTIC CHEMOTHERAP 04/03/2018 CASSIECARMEL N Ot Z79.899 OTHER INTELLIGENCE MANAGER (CURRENT) DRUG THERAPY 04/03/2018 CASSIE, COLLETTEAMANUEL N Ot Z87.891 PERSONAL HISTORY OF NICOTINE DEPENDENCE 05/17/2018 CASSIE COLLETTEAMANUEL Reece Ot 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 05/17/2018 CASSIE, COLLETTEAMANUEL N Ot D64.9 ANEMIA, UNSPECIFIED 05/17/2018 CASSIECARMEL N Ot I10 ESSENTIAL (PRIMARY) HYPERTENSION 05/17/2018 CASSIECARMEL TADEO Ot Z51.11 ENCOUNTER FOR ANTINEOPLASTIC CHEMOTHERAP 05/17/2018 CARMEL MATTHEWS N Ot Z79.899 OTHER USP (CURRENT) DRUG THERAPY 05/17/2018 CARMEL MATTHEWS Ot [...] 06/05/2018 CARMEL MATTHEWS N Ot Z79.899 OTHER USP (CURRENT) DRUG THERAPY 06/05/2018 CARMEL MATTHEWS Ot [...] 10/23/2018 CASSIECARMEL TADEO N Ot Z79.899 OTHER USP (CURRENT) DRUG THERAPY 10/23/2018 CASSIECARMEL N Ot Z87.891 PERSONAL HISTORY OF NICOTINE DEPENDENCE 10/24/2018 CASSIECARMEL N Ot 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 10/24/2018 CASSIECARMEL N Ot D64.9 ANEMIA, UNSPECIFIED 10/24/2018 CASSIE BOBAN N Ot I10 ESSENTIAL (PRIMARY) HYPERTENSION 10/24/2018 CASSIECARMEL N Ot Z51.11 ENCOUNTER FOR ANTINEOPLASTIC CHEMOTHERAP 10/24/2018 CASSIECARMEL N Ot Z79.899 OTHER USP (CURRENT) DRUG THERAPY 10/24/2018 CASSIECARMEL N Ot Z87.891 PERSONAL HISTORY OF NICOTINE DEPENDENCE 12/10/2018 CASSIECARMEL N Ot 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 12/10/2018 CASSIE BOBAMANUEL N Ot D64.9 ANEMIA, UNSPECIFIED 12/10/2018 CASSIE BOBAN N Ot I10 ESSENTIAL (PRIMARY) HYPERTENSION 12/10/2018 CASSIECARMEL N Ot Z51.11 ENCOUNTER FOR ANTINEOPLASTIC CHEMOTHERAP 12/10/2018 CASSIECARMEL N Ot Z79.899 OTHER USP (CURRENT) DRUG THERAPY 12/10/2018 CARMEL MATTHEWS Ot Z87.891 PERSONAL HISTORY OF NICOTINE DEPENDENCE 12/12/2018 CARMEL MATTHEWS Ot 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 12/12/2018 CARMEL MATTHEWS Ot D64.9 ANEMIA, UNSPECIFIED 12/12/2018 CARMEL MATTHEWS Ot I10 ESSENTIAL (PRIMARY) HYPERTENSION 12/12/2018 CARMEL MATTHEWS Ot Z51.11 ENCOUNTER FOR ANTINEOPLASTIC CHEMOTHERAP 12/12/2018 CARMEL MATTHEWS Ot Z79.899 OTHER USP (CURRENT) DRUG THERAPY 12/12/2018 CARMEL MATTHEWS Ot [...] blood basophil count (count/volume) 0.0 10*3/uL 0.0-0.1 [id number] - 08/06/17 15:15 [id number] SPECIMEN AVAILABLE [facility] * Reference lab test name - 08/08/17 13:50 * Reference lab test results CHROM KIM EVAL [facility] Complete blood count (CBC) with automated white [...] serum or plasma 122 U/L 125-220 Serum xttx-9-kfsyweopwuucg measurement (mass/volume) - 11/21/17 08:56 Gmzz-2-Vjsdnkufbguux [Mass/volume] in Serum or Plasma 6.96 % [...] plasma calcium measurement (mass/volume) 9.6 mg/dL 8.5-10.1 Complete blood count (CBC) with automated white blood cell (WBC) differential - 02/26/19 18:45 Blood leukocytes automated count (number/volume) 15.2 10*3/uL 4.3-11.0 Blood erythrocytes automated count (number/volume) 4.94 10*6/uL 4.35-5.85 Venous blood hemoglobin measurement (mass/volume) 15.3 g/dL 13.3-17.7 Blood hematocrit (volume fraction) 45 % 40-54 Automated erythrocyte mean corpuscular volume 90 [foz_us] 80-99 Automated erythrocyte mean corpuscular hemoglobin (mass per erythrocyte) 31 pg 25-34 Automated erythrocyte mean corpuscular hemoglobin concentration measurement ( mass/volume) 34 g/dL 32-36 Automated erythrocyte distribution width ratio 13.6 % 10.0-14.5 Automated blood platelet count (count/volume) 228 10*3/uL 130-400 Automated blood platelet mean volume measurement 10.5 [foz_us] 7.4-10.4 Automated blood neutrophils/100 leukocytes 87 % 42-75 Automated blood lymphocytes/100 leukocytes 7 % 12-44 Blood monocytes/100 leukocytes 6 % 0-12 Automated blood eosinophils/100 leukocytes 0 % 0-10 Automated blood basophils/100 leukocytes 0 % 0-10 Blood neutrophils automated count (number/volume) 13.1 10*3 1.8-7.8 Blood lymphocytes automated count (number/volume) 1.1 10*3 1.0-4.0 Blood monocytes automated count (number/volume) 1.0 10*3 0.0-1.0 Automated eosinophil count 0.0 10*3/uL 0.0-0.3 Automated blood basophil count (count/volume) 0.0 10*3/uL 0.0-0.1 Blood lactic acid measurement (moles/volume) - 02/26/19 18:45 Blood lactic acid measurement (moles/volume) 1.73 mmol/L 0.50-2.00 PT panel in platelet poor plasma by coagulation assay - 02/26/19 18:45 Prothrombin time (PT) in platelet poor plasma by coagulation assay 13.6 s 12.2-14.7 INR in platelet poor plasma or blood by coagulation assay 1.0 0.8-1.4 Activated partial thromboplastin time (aPTT) in platelet poor plasma bycoagulation assay - 02/26/19 18:45 Activated partial thromboplastin time (aPTT) in platelet poor plasma bycoagulation assay 29 s 24-35 Fibrin D-dimer FEU measurement in platelet poor plasma (mass/volume) - 18:45 Fibrin D-dimer FEU measurement in platelet poor plasma (mass/volume) 0.59 ug/mL 0.00-0.49 Comprehensive metabolic panel - 02/26/19 18:45 Serum or plasma sodium measurement (moles/volume) 139 mmol/L 135-145 Serum or plasma potassium measurement (moles/volume) 4.3 mmol/L 3.6-5.0 Serum or plasma chloride measurement (moles/volume) 100 mmol/L 98-107 Carbon dioxide 28 mmol/L 21-32 Serum or plasma anion gap determination (moles/volume) 11 mmol/L 5-14 Serum or plasma urea nitrogen measurement (mass/volume) 15 mg/dL 7-18 Serum or plasma creatinine measurement (mass/volume) 1.03 mg/dL 0.60-1.30 Serum or plasma urea nitrogen/creatinine mass ratio 15 NRG Serum or plasma creatinine measurement with calculation of estimated glomerular filtration rate > NRG Serum or plasma glucose measurement (mass/volume) 102 mg/dL 70-105 Serum or plasma calcium measurement (mass/volume) 10.3 mg/dL 8.5-10.1 Serum or plasma total bilirubin measurement (mass/volume) 0.9 mg/dL 0.1-1.0 Serum or plasma alkaline phosphatase measurement (enzymatic activity/volume) 103 U/L 40-136 Serum or plasma aspartate aminotransferase measurement (enzymatic activity/ volume) 23 U/L 5-34 Serum or plasma alanine aminotransferase measurement (enzymatic activity/volume ) 16 U/L 0-55 Serum or plasma protein measurement (mass/volume) 7.7 g/dL 6.4-8.2 Serum or plasma albumin measurement (mass/volume) 4.6 g/dL 3.2-4.5 Magnesium - 02/26/19 18:45 Magnesium 2.0 mg/dL 1.8-2.4 Serum or plasma creatine kinase measurement (enzymatic activity/volume) - 02/26 18:45 Serum or plasma creatine kinase measurement (enzymatic activity/volume) 209 U/L 30-200 Serum or plasma creatine kinase MB measurement (enzymatic activity/volume) - 18:45 Serum or plasma creatine kinase MB measurement (enzymatic activity/volume) 6.6 ng/mL <6.6 Influenza virus A and B antigen detection - 02/26/19 18:45 FLU RESULT NEGATIVE FOR INFLUENZA A AND B ANTIGENS BY IA NRG Serum or plasma troponin i.cardiac measurement (mass/volume) - 02/26/19 18:45 Serum or plasma troponin i.cardiac measurement (mass/volume) < ng/ mL <0.028 Blood manual differential performed detection - 02/26/19 18:45 Blood monocytes/100 leukocytes 2 % NRG Manual blood segmented neutrophils/100 leukocytes 89 % NRG Blood band neutrophils/100 leukocytes 1 % NRG Manual blood lymphocytes/100 leukocytes 8 % NRG Manual eosinophils/100 leukocytes in nose 0 % NRG Manual blood basophils/100 leukocytes 0 % NRG Blood erythrocyte morphology finding identification NORMAL NRG Serum or plasma lithium measurement (moles/volume) - 02/26/19 18:45 BNP level 111.9 pg/mL <100.0 Complete urinalysis with reflex to culture - 02/26/19 19:02 Urine color determination YELLOW NRG Urine clarity determination CLEAR NRG Urine pH measurement by test strip 8 5-9 Specific gravity of urine by test strip 1.010 1.016- 1.022 Urine protein assay by test strip, semi-quantitative 1+ NEGATIVE Urine glucose detection by automated test strip NEGATIVE NEGATIVE Erythrocytes detection in urine sediment by light microscopy NEGATIVE NEGATIVE Urine ketones detection by automated test strip NEGATIVE NEGATIVE Urine nitrite detection by test strip NEGATIVE NEGATIVE Urine total bilirubin detection by test strip NEGATIVE NEGATIVE Urine urobilinogen measurement by automated test strip (mass/volume) 1 mg/dL NORMAL Urine leukocyte esterase detection by dipstick NEGATIVE NEGATIVE Automated urine sediment erythrocyte count by microscopy (number/high power field) NONE NRG Automated urine sediment leukocyte count by microscopy (number/high power field ) RARE NRG Bacteria detection in urine sediment by light microscopy NEGATIVE NRG Squamous epithelial cells detection in urine sediment by light microscopy 0-2 NRG Crystals detection in urine sediment by light microscopy NONE NRG Casts detection in urine sediment by light microscopy NONE NRG Mucus detection in urine sediment by light microscopy NEGATIVE NRG Complete urinalysis with reflex to culture NO NRG Arterial blood gas measurement - 02/26/19 19:25 Blood pCO2 37 mm[Hg] 35-45 Blood pO2 82 mm[Hg] 79-93 Arterial blood bicarbonate measurement (moles/volume) 26 mmol/L 23-27 Arterial blood base excess by calculation 2.6 mmol/L -2.5 -2.5 Arterial blood oxygen saturation measurement 93 % 94-100 * Inhaled oxygen flow rate 2L NRG Arterial blood pH measurement with patient temperature correction 7.47 7.37-7.43 Arterial blood carbon dioxide, total measurement (moles/volume) 27.1 mmol/L 21.0-31.0 Body site LEFT RADIAL NRG Assessment of wrist artery patency prior to arterial puncture POSITIVE NRG Setting of ventilation mode NO NRG Measurement of body temperature 99.5 NRG Encounters ACCT No. Visit Date/Time Discharge Status Pt. Type Provider Facility Loc./Unit Complaint [id number] 12/11/2018 00:07:00 12/11/2018 23:59:59 CLS Preadmit CARMEL MATTHEWS [facility] ONC [id number] 2018 08:44:00 12/10/2018 00:01:00 DIS Outpatient CARMEL MATTHEWS [facility] ONC [id number] 04/17/2018 08:18:00 06/25/2018 00:01:00 DIS Outpatient CARMEL MATTHEWS [facility] ONC [id number] 05/24/2018 08:45:00 05/24/2018 23:59:59 CLS Outpatient ANGEL ZARATE DO [facility] RAD BLOOD IN URINE, PAINLESS [id number] 02/07/2018 08:45:00 03/05/2018 00:01:00 DIS Outpatient CARMEL MATTHEWS [facility] ONC [id number] 11/21/2017 08:48:00 12/05/2017 09:19:00 DIS Outpatient KATHRYN CONCEPCION MD [facility] ONC [id number] 09/20/2017 08:23:00 09/25/2017 11:16:00 DIS Outpatient CARMEL MATTHEWS [facility] ONC [id number] 09/10/2017 07:35:00 09/10/2017 09:01:00 DIS Emergency ERICKA BERG, NAREN Pugh [facility] ER SOMETHING STUCK IN THROAT [id number] 08/08/2017 12:47:00 08/23/2017 10:58:00 DIS Outpatient CARMEL MATTHEWS [facility] ONC [id number] 08/09/2017 09:49:00 08/09/2017 23:59:59 CLS Outpatient CARMEL MATTHEWS [facility] RAD THROMBOCYTOPENIA D69.6 [id number] 08/06/2017 14:55:00 08/06/2017 23:59:59 CLS Outpatient ANGEL ZARATE DO [facility] LAB THROMBOCYTOPENIA [id number] 04/16/2017 10:24:00 04/16/2017 23:59:59 CLS Outpatient ANGEL ZARATE DO [facility] LAB ANEMIA [id number] 05/31/2016 09:12:00 05/31/2016 12:25:00 DIS Outpatient KRISTIE GRIFFIN MD [facility] SDC DYSPHAGIA;REFLUX [id number] 05/24/2016 08:22:00 05/24/2016 11:37:00 DIS Emergency INES BERG, MIRELA Crowder [facility] ER FB/UNABLE TO SWALLOW [id number] 02/08/2016 10:56:00 02/08/2016 23:59:59 CLS Outpatient ANGEL ZARATE DO [facility] RAD SOB,COUGH [id number] 09/13/2015 13:17:00 09/15/2015 11:55:00 DIS Inpatient ANGEL ZARATE DO [facility] 4TH LEUKOCYTOSIS UTI [id number] 09/13/2015 10:07:00 09/13/2015 23:59:59 CLS Outpatient ANGEL ZARATE DO [facility] LAB UTI,HEMATURIA [id number] 09/03/2015 16:41:00 09/03/2015 17:33:00 DIS Emergency BRAYDEN BERG, LIZBETH Mohan [facility] ER DIFFICULTY SWALLOWING [id number] 05/08/2013 08:40:00 05/28/2013 08:50:00 DIS Outpatient ALYCE PIERRE DO W [facility] REHAB S/P LEFT TKA [id number] 03/23/2013 00:14:00 03/23/2013 01:00:00 DIS Emergency PAMELLA MOLINA MD [facility] ER LT KNEE BLEEDING; POST SURGERY [id number] 02/26/2019 19:08:00 Document Registration [id number] 09/13/2015 10:07:00 Document Registration [id number] 09/13/2015 10:07:00 Document Registration [id number] 07/02/2012 14:45:00 Document Registration [id number] 07/01/2012 10:00:00 Document Registration [id number] 04/04/2012 12:47:00 Document Registration [id number] 03/28/2012 14:19:00 Document Registration [id number] 05/15/2011 09:24:00 Document Registration [id number] 05/12/2011 11:24:00 Document Registration [id number] 05/10/2011 11:29:00 Document Registration [id number] 05/09/2011 11:30:00 Document Registration [id number] 05/05/2011 14:48:00 Document Registration [id number] 04/23/2011 19:57:00 Document Registration [id number] 04/20/2011 05:49:00 Document Registration [id number] 04/17/2011 09:38:00 Document Registration [id number] 04/28/2010 00:38:00 Document Registration
[2019-02-26] MEDS: NS IV 1000 ML 1,000 ML IV SCH (21:30)
[2019-02-26] MEDS ORDERED: NS IV 1000 ML 1,000 ML ONE (21:32)
[2019-02-26 21:36] VITALS: BP 135/85
[2019-02-26 21:45] VITALS: BP 115/70
[2019-02-26] MEDS ORDERED: ALPRAZolam 0.25 MG (XANAX) TAB PO PRN (21:45)
[2019-02-26] MEDS ORDERED: ACETAMINOPHEN 325 MG TABLET PO PRN (21:45)
--- NOTE | 2019-02-26 21:45 | NUR ---
PT'S TEMP 101.8. DR. ZARATE NOTIFIED. NEW ORDERS RECEIVED FOR 650 MG PO TYLENOL Q6 TEMP >100, ROCEPHIN IV 1 G Q24 HR, AND XANAX 0.25 MG PO BID PRN ANXIETY. ORDERS READ BACK AND CONFIRMED.
[2019-02-26] MEDS ORDERED: ACETAMINOPHEN 325 MG TABLET ONE (21:51)
[2019-02-26] MEDS ORDERED: WATER (STERILE) FOR INJECTION 10 ML ONE (21:52)
[2019-02-26] MEDS ORDERED: cefTRIAXone 1,000 MG IV (ROCEPHIN) VIAL ONE (21:52)
[2019-02-26] MEDS ORDERED: ALPRAZolam 0.25 MG (XANAX) TAB ONE (21:52)
[2019-02-26] MEDS: cefTRIAXone FOR IV USE 1,000 MG in WATER (STERILE) FOR INJECTION 10 ML IV SCH (21:58)
[2019-02-26 22:00] VITALS: BP 128/77
[2019-02-26 23:00] VITALS: BP 103/59
[2019-02-26 23:11] VITALS: BP 103/59
[2019-02-26] MEDS ORDERED: LIDOCAINE UROJET 2% GEL 10 ML PKG ONE (23:22)
[2019-02-26] MEDS ORDERED: RT-ALBUTEROL/IPRATROPIUM 3 ML (DUONEB) VIAL INH PRN (23:45)
[2019-02-27] VITALS (13 sets, daily range): BP systolic 91–133; BP diastolic 52–76
[2019-02-27 01:13] LABS: BASOPHILS % (AUTO) 0 % (0-10); EOSINOPHILS % (AUTO) 0 % (0-10); HEMATOCRIT 41 % (40-54); HEMOGLOBIN 13.8 G/DL (13.3-17.7); LYMPHOCYTES # (AUTO) 0.8 X 10^3 (1.0-4.0); LYMPHOCYTES % (AUTO) 4 % (12-44); MEAN CORPUSCULAR HEMOGLOBIN 31 PG (25-34); MEAN CORPUSCULAR HGB CONC 34 G/DL (32-36); MEAN CORPUSCULAR VOLUME 91 FL (80-99); MEAN PLATELET VOLUME 9.7 FL (7.4-10.4); MONOCYTES # (AUTO) 1.6 X 10^3 (0.0-1.0); MONOCYTES % (AUTO) 9 % (0-12); NEUTROPHILS # (AUTO) 15.4 X 10^3 (1.8-7.8); NEUTROPHILS % (AUTO) 87 % (42-75); PLATELET COUNT 203 10^3/uL (130-400); RED CELL DISTRIBUTION WIDTH 13.4 % (10.0-14.5); WHITE BLOOD COUNT 17.7 10^3/uL (4.3-11.0)
[2019-02-27 01:31] LABS: ALANINE AMINOTRANSFERASE 12 U/L (0-55); ALBUMIN 3.7 GM/DL (3.2-4.5); ALKALINE PHOSPHATASE 75 U/L (40-136); BILIRUBIN,TOTAL 0.9 MG/DL (0.1-1.0); BUN/CREATININE RATIO 16; CALCIUM 9.1 MG/DL (8.5-10.1); CARBON DIOXIDE 24 MMOL/L (21-32); CHLORIDE 102 MMOL/L (98-107); CREATININE SERUM 0.99 MG/DL (0.60-1.30); GFR ESTIMATED > 60; GLUCOSE 99 MG/DL (70-105); POTASSIUM 3.9 MMOL/L (3.6-5.0); SODIUM 136 MMOL/L (135-145)
--- NOTE | 2019-02-27 07:38 | History & Physicial ---
History of Present Illness History of Present Illness Reason for visit/HPI brought patient out to emergency room. Patient short of breath During the day had chest pain. Patient has history of lymphoma. Treated by oncologist. Patient to start chemotherapy today. Patient has malignant hypertension. Patient has tachycardia. Last night troponin minimally elevated. White blood cell count 17,000. Patient felt he had respiratory infection. Patient has congestion in his chest area Patient running an elevated temperature of 101 Date of Admission Feb 26, 2019 at 19:52 Time Seen by a Provider: 07:33 I consulted on this patient on 02/27/19 07:33 Attending Physician Jayesh Zarate DO Admitting Physician Jayesh Zarate DO Consult Allergies and Home Medications Allergies Coded Allergies: prochlorperazine (Unverified Allergy, Unknown, 02/26/19) Uncoded Allergies: FISH (Allergy, Unknown, 09/13/15) Home Medications Allopurinol 300 Mg Tablet, 300 MG PO DAILY, (Reported) Amlodipine Besylate 5 Mg Tablet, 5 MG PO DAILY, (Reported) Atenolol 25 Mg Tablet, 25 MG PO DAILY, (Reported) Calcium Carbonate/Vitamin D3 1 Each Tablet, 1 TAB PO DAILY, (Reported) Omeprazole 20 Mg Tablet.dr, 20 MG PO DAILY Prescribed by: NAREN MUNIZ on 09/10/1748 Sucralfate 1 Gm/10 Ml Oral.susp, 1 GM PO QID 30 min before meals and bed. May sub pills to crush and slurry Prescribed by: NAREN MUNIZ on 09/10/17 0848 Patient Home Medication List Home Medication List Reviewed: No Past Ynlsloc-Wstjsq-Yqkddg Hx Patient Social History Marrital Status: Employed/Student: retired Alcohol Use: Occasionally Uses Alcohol Beverage of Choice: Beer Recreational Drug Use: No Smoking Status: Never a Smoker Former Smoker, Quit: Nov 26, 1975 Recent Foreign Travel: No Contact w/other who traveled: No Recent Infectious Disease Expo: No Immunizations Up To Date Tetanus Booster (TDap): Unknown Date of Pneumonia Vaccine: Dec 01, 2015 Date of Influenza Vaccine: Aug 16, 2015 Seasonal Allergies Seasonal Allergies: Yes Surgeries Yes (cataract, BACK SURGERY, KNEE/HIP TWICE, FUSED LEFT ANKLE) Abdominal, Ear Surgery, Joint Replacement, Orthopedic Respiratory Yes Cardiovascular Yes Hypertension Neurological No Reproductive System Hx Reproductive Disorders: No Sexually Transmitted Disease: No Gastrointestinal Yes (BLEEDING ULCERS IN THE PAST) Esophagitis, Ulcer Musculoskeletal No Arthritis, Chronic Back Pain Endocrine History of Endocrine Disorders: No HEENT HEENT Disorders: Cataract Hearing Impairment: Hard of Hearing Cancer Yes Lymphoma Psychosocial History of Psychiatric Problem: No Integumentary History of Skin or Integumenta: No Blood Transfusions History of Blood Disorders: No Family Medical History Family Hx: Glaucoma 19 MOTHER Review of Systems Constitutional: no symptoms reported, weakness EENTM: no symptoms reported Respiratory: short of breath, other (Coughing and congestion and chest) Cardiovascular: chest pain, other (Hypotension and tachycardia) Gastrointestinal: no symptoms reported Genitourinary: no symptoms reported Physical Exam Vital Signs Vital Signs - First Documented 02/26/19 02/26/19 02/26/19 18:40 19:01 21:15 Temp 99.5 Pulse 130 Resp 20 B/P (MAP) 145/86 (105) Pulse Ox 94 O2 Delivery Room Air O2 Flow Rate 3.00 Capillary Refill : Less Than 3 Seconds Height, Weight, BMI Height: 5'8.00" Weight: 179lbs. 0.0oz. [id number]; 27.2 BMI Method:Stated General Appearance: No Apparent Distress, Thin Eyes: Bilateral Eye Normal Inspection HEENT: Normal ENT Inspection Neck: Full Range of Motion, Normal Inspection Respiratory: No Accessory Muscle Use, No Respiratory Distress, Other ( Congestion and chest) Cardiovascular: Regular Rate, Rhythm, Other (Bradycardia) Gastrointestinal: Non Tender, Soft Assessment/Plan Assessment and Plan Short of breath. Chest pain. Febrile. Leukocytosis. Lymphoma. Chest congestion. Malignant hypertension. Tachycardia. Elevated troponin Admission Diagnosis Admission Status: Inpatient Order (span 2 midnights) Reason for Inpatient Admission: Short of the air. Lung congestion. Malignant hypertension. Tachycardia. Elevated troponin. Leukocytosis. Lymphoma history. Dyspnea Clinical Quality Measures DVT/VTE Risk/Contraindication: Risk Factor Score Per Nursin RFS Level Per Nursing on Admit: 2=Moderate JAYESH ZARATE DO Feb 27, 2019 07:38
[2019-02-27] MEDS ORDERED: FINA5TAB6 PO (08:17)
[2019-02-27] MEDS ORDERED: TAMS0.4C98 PO (08:17)
[2019-02-27] MEDS ORDERED: CALC-6 PO (08:17)
[2019-02-27] MEDS: NS IV 1000 ML 1,000 ML IV SCH ×2 (08:29→23:48)
[2019-02-27] MEDS ORDERED: OMEP20TA7 PO (08:40)
--- NOTE | 2019-02-27 08:43 | NUR ---
SPOKE WITH THE PATIENT ABOUT HIS MEDICATIONS. HE HAD HIS BOTTLES WITH HIM AND I COMPARED WITH THE EXT MED HX. HIS AMLODIPINE IS WRITTEN TO TAKE ONE TAB DAILY HOWEVER HE STATES HE TAKES 1/2 TAB DAILY. HE TAKES OMEPRAZOLE OTC DAILY
[2019-02-27] MEDS ORDERED: ENOXAPARIN 80 MG/0.8 ML (LOVENOX) SYR SC SCH (09:00)
[2019-02-27] MEDS ORDERED: meTOprolol SUCCINATE 100 MG (TOPROL XL) TAB PO SCH (09:00)
--- NOTE | 2019-02-27 09:59 | Diagnostic Imaging Report ---
INDICATION: Dyspnea. COMPARISON: 02/26/2019. FINDINGS: Stable to mild progression of left basilar pulmonary opacities. Potential trace left pleural effusion versus subpleural opacities. No pneumothorax. Stable heart size. IMPRESSION: Mild progression of left basilar pulmonary opacities which could be due to worsening pneumonia, atelectasis or aspiration. Dictated by: Dictated on workstation # [id number]
--- NOTE | 2019-02-27 10:13 | Consultation-Cardiology ---
HPI-Cardiology Cardiology Consultation: Date of Consultation 02/27/19 Time Seen by a Provider: 09:30 Date of Admission Attending Physician Jayesh Singleton DO Admitting Physician Jayesh Singleton DO Consulting Physician COMPA GIPSON MD, MA, FACP, FACC, FSCAI, CCDS Physician requesting consult: Dr Singleton HPI: Chief Complaint: CC: Shortness of breath HPI 78 yo man with rapid onset of shortness of breath yesterday. Also had a feeling of shaking chills and gen malaise at home. Came to ER. W/u for PE was negative. Was febrile at presentation and tachycardic and hypertensive. Currently feels much better. Notes a cough productive of small quantities of yellowish sputum. has had a cold for several days and went on antibiotic therapy yesterday He does not report cp or palp or syncope or leg swelling Review of Systems-Cardiology Review of Systems Constitutional: As described under HPI Eyes: No vision change Ears/Nose/Throat: No ear discharge, No nasal drainage, No recent hearing loss Cardiovascular: As described under HPI Gastrointestinal: As described under HPI Genitourinary: No dysuria, No hematuria, No urine frequency changes Musculoskeletal: No back pain, No joint pain Skin: No rash, No ulcerations Psychiatric/Neurological: No seizure, No focal weakness, No syncope Hematologic: No bleeding abnormalities EJK-Yhtkcd-Ecjzna Hx Patient Social History Marrital Status: Employed/Student: retired Alcohol Use: Occasionally Uses Recreational Drug Use: No Smoking Status: Never a Smoker Former smoker/When Quit: Sep 13, 1965 Recent Foreign Travel: No Recent Infectious Disease Expo: No Hospitalization with Isolation: Denies Immunizations Up To Date Tetanus Booster (TDap): Unknown Date of Pneumonia Vaccine: Dec 01, 2015 Date of Influenza Vaccine: Aug 16, 2015 Past Medical History PMH As described under Assessment. Family Medical History Family History: Glaucoma 19 MOTHER Allergies and Home Medications Allergies Coded Allergies: Fish Containing Products (Unverified Allergy, Unknown, 02/27/19) FROM UNCODED ALLERGIES prochlorperazine (Unverified Allergy, Unknown, 02/26/19) Home Medications Allopurinol 300 Mg Tablet, 300 MG PO DAILY, (Reported) Amlodipine Besylate 5 Mg Tablet, 2.5 MG PO DAILY, (Reported) TAKES 1/2 (5MG) TABLET Atenolol 25 Mg Tablet, 25 MG PO DAILY, (Reported) Finasteride 5 Mg Tablet, 5 MG PO DAILY, (Reported) Omeprazole 20 Mg Tablet.dr, 20 MG PO DAILY, (Reported) Tamsulosin HCl 0.4 Mg Cap, 0.4 MG PO 1800, (Reported) Patient Home Medication List Home Medication List Reviewed: Yes Physical Exam-Cardiology Physical Exam Vital Signs/I&O 02/26/19 02/26/19 02/26/19 02/27/19 23:00 23:11 23:11 00:00 Pulse 93 107 72 Resp 20 29 B/P (MAP) 103/59 (74) 98/58 (71) Pulse Ox 94 93 93 96 O2 Delivery Nasal Cannula Nasal Cannula Nasal Cannula O2 Flow Rate 2.00 2.00 2.00 02/27/19 02/27/19 02/27/19 02/27/19 00:00 00:00 01:00 01:00 Temp 98.8 Pulse 66 66 Resp 26 B/P (MAP) 105/71 (82) Pulse Ox 97 O2 Delivery Nasal Cannula Nasal Cannula O2 Flow Rate 2.00 2.00 02/27/19 02/27/19 02/27/19 02/27/19 02:00 03:00 04:00 04:00 Temp 97.6 Pulse 56 55 Resp 19 B/P (MAP) 102/61 (75) 114/70 (85) Pulse Ox 96 95 O2 Delivery Nasal Cannula Nasal Cannula Nasal Cannula O2 Flow Rate 2.00 2.00 2.00 02/27/19 02/27/19 02/27/19 02/27/19 04:00 05:00 07:07 07:17 Pulse 48 47 46 Resp 24 24 B/P (MAP) 91/56 (68) 100/52 (68) Pulse Ox 97 98 100 O2 Delivery Nasal Cannula Nasal Cannula Nasal Cannula O2 Flow Rate 2.00 2.00 2.00 02/27/19 02/27/19 02/27/19 08:00 08:00 09:00 Pulse 58 57 Resp 9 31 B/P (MAP) 113/76 (88) 104/59 (74) Pulse Ox 95 94 O2 Delivery Room Air Nasal Cannula Nasal Cannula O2 Flow Rate 2.00 2.00 02/27/19 00:00 Intake Total 550 ml Output Total 300 ml Balance 250 ml Capillary Refill : Less Than 3 Seconds Constitutional: AAO x 3, well-developed, well-nourished HEENT: EOMI, hard of hearing; No xanthelasmas are seen Neck: carotid pulses are 2 + bilaterally Respiratory: No accessory muscle use; other (good bilat air entry) Cardiovascular: regular rate-rhythm, S1 and S2, systolic murmur (faint ALEKSANDAR at card base) Gastrointestinal: No tender; soft; No guarding, No rebound; audible bowel sounds Extremities: No clubbing, No cyanosis, No significant edema Neurologic/Psychiatric: oriented x 3, grossly intact, power is 5/5 both on sides Skin: No rash on exposed areas, No ulcerations on exposed areas Data Review Labs Laboratory Tests 02/26/19 18:45: White Blood Count 15.2H, Red Blood Count 4.94, Hemoglobin 15.3, Hematocrit 45, Mean Corpuscular Volume 90, Mean Corpuscular Hemoglobin 31, Mean Corpuscular Hemoglobin Concent 34, Red Cell Distribution Width 13.6, Platelet Count 228, Mean Platelet Volume 10.5H, Neutrophils (%) (Auto) 87H, Lymphocytes (%) (Auto) 7L, Monocytes (%) (Auto) 6, Eosinophils (%) (Auto) 0, Basophils (%) (Auto) 0, Neutrophils # (Auto) 13.1H, Lymphocytes # (Auto) 1.1, Monocytes # (Auto) 1.0, Eosinophils # (Auto) 0.0, Basophils # (Auto) 0.0, Neutrophils % (Manual) 89, Lymphocytes % (Manual) 8, Monocytes % (Manual) 2, Eosinophils % (Manual) 0, Basophils % (Manual) 0, Band Neutrophils 1, Blood Morphology Comment NORMAL, Prothrombin Time 13.6, INR Comment 1.0, Activated Partial Thromboplast Time 29, D-Dimer 0.59H, Sodium Level 139, Potassium Level 4.3, Chloride Level 100, Carbon Dioxide Level 28, Anion Gap 11, Blood Urea Nitrogen 15, Creatinine 1.03, Estimat Glomerular Filtration Rate > 60, BUN/Creatinine Ratio 15, Glucose Level 102, Lactic Acid Level 1.73, Calcium Level 10.3H, Corrected Calcium , Magnesium Level 2.0, Total Bilirubin 0.9, Aspartate Amino Transf (AST/SGOT) 23, Alanine Aminotransferase (ALT/SGPT) 16, Alkaline Phosphatase 103, Total Creatine Kinase 209H, Creatine Kinase MB 6.6*H, Troponin I < 0.028, B-Type Natriuretic Peptide 111.9H, Total Protein 7.7, Albumin 4.6H 02/26/19 19:02: Urine Color YELLOW, Urine Clarity CLEAR, Urine pH 8, Urine Specific [place] 1.010L, Urine Protein 1+H, Urine Glucose (UA) NEGATIVE, Urine Ketones NEGATIVE, Urine Nitrite NEGATIVE, Urine Bilirubin NEGATIVE, Urine Urobilinogen 1, Urine Leukocyte Esterase NEGATIVE, Urine RBC (Auto) NEGATIVE, Urine RBC NONE, Urine WBC RARE, Urine Squamous Epithelial Cells 0-2, Urine Crystals NONE, Urine Bacteria NEGATIVE, Urine Casts NONE, Urine Mucus NEGATIVE, Urine Culture Indicated NO 02/26/19 19:25: Blood Gas Puncture Site LEFT RADIAL, Blood Gas Patient Temperature 99.5, Arterial Blood pH 7.47H, Arterial Blood Partial Pressure CO2 37, Arterial Blood Partial Pressure O2 82, Arterial Blood HCO3 26, Arterial Blood Total CO2 27.1, Arterial Blood Oxygen Saturation 93L, Arterial Blood Base Excess 2.6H, Cresencio Test POSITIVE, Blood Gas Ventilator Setting NO, Blood Gas Inspired Oxygen 2L 02/27/19 01:05: White Blood Count 17.7H, Red Blood Count 4.45, Hemoglobin 13.8, Hematocrit 41, Mean Corpuscular Volume 91, Mean Corpuscular Hemoglobin 31, Mean Corpuscular Hemoglobin Concent 34, Red Cell Distribution Width 13.4, Platelet Count 203, Mean Platelet Volume 9.7, Neutrophils (%) (Auto) 87H, Lymphocytes (%) (Auto) 4L , Monocytes (%) (Auto) 9, Eosinophils (%) (Auto) 0, Basophils (%) (Auto) 0, Neutrophils # (Auto) 15.4H, Lymphocytes # (Auto) 0.8L, Monocytes # (Auto) 1.6H, Eosinophils # (Auto) 0.0, Basophils # (Auto) 0.0, Sodium Level 136, Potassium Level 3.9, Chloride Level 102, Carbon Dioxide Level 24, Anion Gap 10, Blood Urea Nitrogen 16, Creatinine 0.99, Estimat Glomerular Filtration Rate > 60, BUN/ Creatinine Ratio 16, Glucose Level 99, Calcium Level 9.1, Corrected Calcium 9.3 , Total Bilirubin 0.9, Aspartate Amino Transf (AST/SGOT) 17, Alanine Aminotransferase (ALT/SGPT) 12, Alkaline Phosphatase 75, Troponin I 0.053H, Total Protein 6.0L, Albumin 3.7 Microbiology 02/26/19 Influenza Types A,B Antigen (ARIANNA) - Final, Complete Laboratory Tests 02/26/19 18:45 02/27/19 01:05 A/P-Cardiology Assessment/Admission Diagnosis Shortness of breath and sinus tach, likely due to ac bronchitis/pneumonia Minimal type 2 GA (minimal troponin elevation) due to fever, tachycardia, and hypertension Hypertension Bradycardia on high-dose beta-tahir H/o lymphoma Discussion and Recomendations * Treat systemic infection * Change Lovenox to DVT-prophylaxis dose * Monitor labs * Add ASA * Echo * I spoke with him and his fam in detail and answered questions Clinical Quality Measures DVT/VTE Risk/Contraindication: Risk Factor Score Per Nursin RFS Level Per Nursing on Admit: 2=Moderate COMPA GIPSON MD FACP FAC CCDS Feb 27, 2019 10:13
[2019-02-27] MEDS ORDERED: ASPIRIN 81 MG CHEW (CHILDREN'S ASA) PO NR (10:30)
--- NOTE | 2019-02-27 10:40 | NUR ---
Report given to CLAYTON Arroyo on 4th floor.
--- NOTE | 2019-02-27 11:00 | NUR ---
REC'D PER BED FROM ICU. SEE ASSESSMENT.
--- NOTE | 2019-02-27 17:28 | NUR ---
R/T STAFFING, REPORT TO MAKAYLA ARNOLD.
[2019-02-27] MEDS ORDERED: WATER (STERILE) FOR INJECTION 10 ML ONE (21:19)
[2019-02-27] MEDS ORDERED: cefTRIAXone 1,000 MG IV (ROCEPHIN) VIAL ONE (21:19)
[2019-02-27] MEDS: cefTRIAXone FOR IV USE 1,000 MG in WATER (STERILE) FOR INJECTION 10 ML IV SCH (21:42)
--- NOTE | 2019-02-27 22:54 | CONSULTATION REPORT ---
DATE OF SERVICE: 02/27/2019 The patient is admitted to room 432. PHYSICIAN REQUESTING CONSULTATION: Jayesh Singleton DO. IMPRESSION: A 78-year-old male admitted to the hospital with febrile illness and significant shortness of breath. Also had intermittent chest discomfort previously, but has had cough for the last few days. He was noted to have slight elevation of troponin and admitted to the hospital for further management. 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 He had significant anemia and thrombocytopenia at that time along with these symptoms. He was started on treatment with pulse doses of rituximab with normalization of blood counts and resolution of symptoms. Currently, he is receiving rituximab weekly x4 once every 6 months and has been tolerating this well. He was due to start a new course today, but was admitted to the hospital yesterday. Other significant history includes hypertension for more than 32 years, bleeding peptic ulcer disease in 2003 requiring PRBC transfusions, significant osteoarthritis involving large and small joints. PAST SURGICAL HISTORY: Include laminectomy and fusion of lumbar vertebrae in 1995, right hip replacement in 1997 and revision due to infection. Left knee replacement as well as left ankle fusion in the past. SOCIAL HISTORY: The patient is and lives in [place], [place]. He has a biological son and a stepdaughter, both of whom live close by. 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 No significant exposure to chemicals. He smoked 20 to 30 packs of cigarettes during his teenage years and quit smoking more than 40 years ago. He uses alcohol socially averaging few beers per week. FAMILY HISTORY: Significant for maternal grandmother with history of breast cancer in her 70s. Maternal uncle diagnosed with lung cancer. Another maternal uncle with an unknown abdominal malignancy. Father had coronary artery disease. Rest of the family history is unremarkable. PHYSICAL EXAMINATION: GENERAL: Today showed an elderly male, well-developed and nourished, awake and oriented, in mild distress because of paroxysmal cough. VITAL SIGNS: His temperature was 98.4, pulse rate of 55, respirations 24, blood pressure 120/63 with oxygen saturation 96% on 2 liters of oxygen by nasal cannula. HEENT: Normocephalic. Extraocular muscles intact. Conjunctivae pink. Oral mucosa moist. NECK: Supple with no JVD. No cervical, supraclavicular or axillary lymphadenopathy palpable. CHEST: Symmetrical. LUNGS: Fairly clear to auscultation without wheezes or rales. CARDIOVASCULAR: Borderline bradycardic, regular with occasional missed beats. No murmurs or gallops heard. ABDOMEN: Soft, nontender with no hepatosplenomegaly or other masses palpable. EXTREMITIES: Showed no edema. Chronic arthritic changes of all joints. NEUROLOGIC: Grossly intact without focal motor deficits. LABORATORY DATA: CBC done today showed WBC 17.7, hemoglobin 13.8, platelet count 203,000 with neutrophil count 15.4, lymphocyte count 0.8 and monocyte count 1.6. Chemistry panel showed normal electrolytes. BUN was 16 and creatinine 0.99 with GFR more than 60 mL per minute. Liver function studies were within normal limits. Initial troponin drawn today was 0.031 and followup done one hour later was 0.053. Repeat level this evening was 0.028, which is in the normal range. Influenza screen done at the time of admission was negative and two blood cultures were negative so far. A CT angiogram done at the time of admission showed relatively normal lungs with no effusion or pneumothorax. No mediastinal mass or hemorrhage. No aortic aneurysm or dissection. No pulmonary embolism. IMPRESSION: 1. Acute bronchitis causing fever, paroxysmal cough and shortness of breath. 2. 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 Currently on treatment with pulse dose rituximab. 3. Significant osteoarthritis. RECOMMENDATIONS: 1. Continue management of bronchitis as you are doing with antibiotics and bronchodilators as well as antitussives. 2. With regards to Waldenstrom's macroglobulinemia, the patient was due to start next cycle of treatment with rituximab today. I will withhold the treatment until he has recovered from the bronchitis. Please schedule [facility] when he is discharged from the hospital. We will reevaluate him and resume treatment for Waldenstrom's macroglobulinemia. We will follow the patient with you. Job ID: [id number] DocumentID: [id number] Dictated Date: 02/27/2019 18:36:46 Manager Of Corporate Communications Date: 02/27/2019 22:53:36 Dictated By: CARMEL MATTHEWS MD
[2019-02-28 04:11] VITALS: BP 145/70
[2019-02-28 06:02] LABS: BASOPHILS % (AUTO) 0 % (0-10); EOSINOPHILS # (AUTO) 0.1 10^3/uL (0.0-0.3); EOSINOPHILS % (AUTO) 1 % (0-10); HEMATOCRIT 37 % (40-54); HEMOGLOBIN 12.4 G/DL (13.3-17.7); LYMPHOCYTES # (AUTO) 0.9 X 10^3 (1.0-4.0); LYMPHOCYTES % (AUTO) 8 % (12-44); MEAN CORPUSCULAR HEMOGLOBIN 31 PG (25-34); MEAN CORPUSCULAR HGB CONC 34 G/DL (32-36); MEAN CORPUSCULAR VOLUME 93 FL (80-99); MEAN PLATELET VOLUME 10.5 FL (7.4-10.4); MONOCYTES # (AUTO) 0.8 X 10^3 (0.0-1.0); MONOCYTES % (AUTO) 7 % (0-12); NEUTROPHILS # (AUTO) 9.2 X 10^3 (1.8-7.8); NEUTROPHILS % (AUTO) 84 % (42-75); PLATELET COUNT 196 10^3/uL (130-400); RED CELL DISTRIBUTION WIDTH 14.1 % (10.0-14.5); WHITE BLOOD COUNT 10.9 10^3/uL (4.3-11.0)
[2019-02-28 06:22] LABS: ALANINE AMINOTRANSFERASE 9 U/L (0-55); ALBUMIN 3.2 GM/DL (3.2-4.5); ALKALINE PHOSPHATASE 68 U/L (40-136); BILIRUBIN,TOTAL 0.6 MG/DL (0.1-1.0); BUN/CREATININE RATIO 17; CALCIUM 8.8 MG/DL (8.5-10.1); CARBON DIOXIDE 22 MMOL/L (21-32); CHLORIDE 111 MMOL/L (98-107); CREATININE SERUM 0.86 MG/DL (0.60-1.30); GFR ESTIMATED > 60; GLUCOSE 84 MG/DL (70-105); POTASSIUM 3.8 MMOL/L (3.6-5.0); SODIUM 140 MMOL/L (135-145); TOTAL PROTEIN 5.7 GM/DL (6.4-8.2)
--- NOTE | 2019-02-28 07:49 | Progress Note (SOAP) ---
Subjective Time Seen by a Provider: 07:45 Subjective/Events-last exam Patient feeling better this morning. Patient coughing up stuff during the night. Chest x-ray yesterday looked worse. White blood cell count this morning better. Troponin 1.082 minimally elevated. To get chest x-ray this morning Continue with antibiotic Focused Exam Lactate Level 02/26/19 18:45: Lactic Acid Level 1.73 Objective Exam Vital Signs Date Time Temp Pulse Resp B/P (MAP) Pulse Ox O2 Delivery O2 Flow Rate FiO2 02/28/19 07:00 59 02/28/19 04:11 98.4 96 22 145/70 (95) 94 Nasal Cannula 2.00 02/28/19 01:00 64 02/27/19 23:39 98.2 58 24 133/64 (87) 90 Room Air 02/27/19 20:00 98.8 57 22 130/69 (89) 93 Room Air 02/27/19 19:45 Room Air 02/27/19 19:00 61 02/27/19 15:45 98.4 55 24 120/63 (82) 96 Nasal Cannula 2.00 02/27/19 14:38 96 Room Air 02/27/19 12:43 50 02/27/19 12:00 98.4 78 18 111/69 (83) 98 Nasal Cannula 2.00 02/27/19 10:00 54 22 106/59 (75) 96 Nasal Cannula 2.00 02/27/19 09:00 57 31 104/59 (74) 94 Nasal Cannula 2.00 02/27/19 08:00 58 9 113/76 (88) 95 Nasal Cannula 2.00 02/27/19 08:00 Room Air I & O 02/28/19 07:00 Intake Total 2630 ml Output Total 950 ml Balance 1680 ml Capillary Refill : Less Than 3 SecondsLess Than 3 Seconds General Appearance: No Apparent Distress, WD/WN HEENT: Normal ENT Inspection Neck: Full Range of Motion, Normal Inspection Respiratory: Other (Congestion and chest and coughing) Cardiovascular: Regular Rate, Rhythm, No Murmur Gastrointestinal: non tender, soft Results Lab Laboratory Tests 02/28/19 05:30 Laboratory Tests 02/27/19 12:12: Troponin I 0.031H 02/28/19 05:30: Troponin I 0.082H, White Blood Count 10.9, Red Blood Count 4.00L, Hemoglobin 12.4L, Hematocrit 37L, Mean Corpuscular Volume 93, Mean Corpuscular Hemoglobin 31, Mean Corpuscular Hemoglobin Concent 34, Red Cell Distribution Width 14.1, Platelet Count 196, Mean Platelet Volume 10.5H, Neutrophils (%) (Auto) 84H, Lymphocytes (%) (Auto) 8L, Monocytes (%) (Auto) 7, Eosinophils (%) (Auto) 1, Basophils (%) (Auto) 0, Neutrophils # (Auto) 9.2H, Lymphocytes # (Auto) 0.9L, Monocytes # (Auto) 0.8, Eosinophils # (Auto) 0.1, Basophils # (Auto) 0.0, Sodium Level 140, Potassium Level 3.8, Chloride Level 111H, Carbon Dioxide Level 22, Anion Gap 7, Blood Urea Nitrogen 15, Creatinine 0.86, Estimat Glomerular Filtration Rate > 60, BUN/Creatinine Ratio 17, Glucose Level 84, Calcium Level 8.8, Corrected Calcium 9.4, Total Bilirubin 0.6, Aspartate Amino Transf (AST/SGOT) 15, Alanine Aminotransferase (ALT/SGPT) 9, Alkaline Phosphatase 68, Total Protein 5.7L, Albumin 3.2 Microbiology 02/26/19 Blood Culture - Preliminary, Resulted No growth 02/26/19 Influenza Types A,B Antigen (ARIANNA) - Final, Complete Assessment/Plan Assessment/Plan Assess & Plan/Chief Complaint To The resolved. Dyspnea resolved. Malignant hypertension resolved. Pneumonia. Clinical Quality Measures Admission Status Admission Dx Short of breath. Chest pain. Febrile. Leukocytosis. Lymphoma. Chest congestion. Malignant hypertension. Tachycardia. Elevated troponin DVT/VTE Risk/Contraindication: Risk Factor Score Per Nursin RFS Level Per Nursing on Admit: 2=Moderate ANGEL ZARATE DO Feb 28, 2019 07:49
[2019-02-28 08:00] VITALS: BP 163/74
[2019-02-28] MEDS: PANTOPRAZOLE 20 MG TABLET (PROTONIX) PO SCH (08:44)
[2019-02-28] MEDS: ALLOPURINOL 300 MG (ZYLOPRIM) TAB PO SCH (08:44)
[2019-02-28] MEDS: ASPIRIN 81 MG CHEW (CHILDREN'S ASA) PO SCH (08:44)
[2019-02-28] MEDS: FINASTERIDE (PROSCAR) 5 MG TAB PO SCH (08:45)
[2019-02-28] MEDS ORDERED: NON-FORMULARY MEDICATION 1 EA EA (Allopurinol 300 MG) PO SCH (09:00)
--- NOTE | 2019-02-28 09:41 | Progress Note-Cardiology ---
Cardiology SOAP Progress Note Subjective: Sitting up in bed. He feels his breathing is better today. No c/o CP, palpitations, syncope or near syncope. He reports frequent prod cough this morning. Objective: I&O/Vital Signs 02/28/19 02/28/19 02/28/19 02/28/19 07:00 08:00 08:00 12:00 Temp 98.2 98.5 Pulse 59 59 59 Resp 18 18 B/P (MAP) 163/74 (103) 157/72 (100) Pulse Ox 95 96 O2 Delivery Nasal Cannula Room Air Nasal Cannula O2 Flow Rate 2.00 2.00 02/28/19 02/28/19 12:50 16:20 Temp 97.6 Pulse 54 55 Resp 18 B/P (MAP) 174/79 (110) Pulse Ox 95 O2 Delivery Room Air 02/28/19 00:00 Intake Total 2280 ml Output Total 525 ml Balance 1755 ml Weight (Pounds): 179 Weight (Ounces): 0.0 Weight (Calculated Kilograms): 81.115341 Constitutional: AAO x 3, well-developed, well-nourished Respiratory: No accessory muscle use; other (good bilat air entry) Cardiovascular: regular rate-rhythm, S1 and S2, systolic murmur (faint ALEKSANDAR at card base) Gastrointestional: No tender; soft; No guarding, No rebound; audible bowel sounds Extremities: No clubbing, No cyanosis, No significant edema Neurologic/Psychiatric: oriented x 3, grossly intact, power is 5/5 both on sides Skin: No rash on exposed areas, No ulcerations on exposed areas Results/Procedures: Labs Laboratory Tests 02/28/19 05:30: White Blood Count 10.9, Red Blood Count 4.00L, Hemoglobin 12.4L, Hematocrit 37L , Mean Corpuscular Volume 93, Mean Corpuscular Hemoglobin 31, Mean Corpuscular Hemoglobin Concent 34, Red Cell Distribution Width 14.1, Platelet Count 196, Mean Platelet Volume 10.5H, Neutrophils (%) (Auto) 84H, Lymphocytes (%) (Auto) 8L, Monocytes (%) (Auto) 7, Eosinophils (%) (Auto) 1, Basophils (%) (Auto) 0, Neutrophils # (Auto) 9.2H, Lymphocytes # (Auto) 0.9L, Monocytes # (Auto) 0.8, Eosinophils # (Auto) 0.1, Basophils # (Auto) 0.0, Sodium Level 140, Potassium Level 3.8, Chloride Level 111H, Carbon Dioxide Level 22, Anion Gap 7, Blood Urea Nitrogen 15, Creatinine 0.86, Estimat Glomerular Filtration Rate > 60, BUN/ Creatinine Ratio 17, Glucose Level 84, Calcium Level 8.8, Corrected Calcium 9.4 , Total Bilirubin 0.6, Aspartate Amino Transf (AST/SGOT) 15, Alanine Aminotransferase (ALT/SGPT) 9, Alkaline Phosphatase 68, Troponin I 0.082H, Total Protein 5.7L, Albumin 3.2 Microbiology 02/26/19 Blood Culture - Preliminary, Resulted No growth 02/26/19 Influenza Types A,B Antigen (ARIANNA) - Final, Complete A/P: Assessment: Shortness of breath and sinus tach, likely due to ac bronchitis/pneumonia Minimal type 2 [place] (minimal troponin elevation) due to fever, tachycardia, and hypertension Hypertension Bradycardia on high-dose beta-tahir H/o lymphoma Plan: * Treat systemic infection * Change Lovenox to DVT-prophylaxis dose * BP not well controlled - resume home dose of Atenolol 25mg daily and will re- introduce home dose of Norvasc 2.5mg if indicated * Monitor labs * Continue ASA * Echo pending * We have spoken with him and his fam in detail and answered questions Physician Assessment Physician Assessment No cp or palp or syncope Shortness of breath has improved Lungs: fair to good air entry Cor: reg Ext: no c/c/e A&R * As documented in our note above that I updated (italics) and as noted below * I spoke with and discussed his CV issues with him * Ok for d/c from cardiac standpoint * Outpt f/u advised in 2-3 weeks [facility]ILYN [facility] Feb 28, 2019 09:41 COMPA GIPSON MD [facility] Feb 28, 2019 16:30
[2019-02-28] MEDS ORDERED: amLODIPine 2.5MG (NORVASC) TAB PO NR (10:00)
[2019-02-28] MEDS ORDERED: ATENOLOL 25 MG (TENORMIN) TAB PO NR (10:00)
[2019-02-28 12:00] VITALS: BP 157/72
[2019-02-28] MEDS: NS IV 1000 ML 1,000 ML IV SCH (13:08)
--- NOTE | 2019-02-28 13:59 | Diagnostic Imaging Report ---
INDICATION: Tachypnea and dyspnea. TIME OF EXAM: 01:33 p.m. COMPARISON: Comparison is made with prior chest one day earlier. FINDINGS: There has been improved aeration to the left base since prior study. There is some residual infiltrate or atelectasis in the left base with mild elevation of the left hemidiaphragm. The right lung is clear. Pulmonary vascularity is normal. No significant effusion is seen. There is no pneumothorax. IMPRESSION: Overall improved aeration to the left base when compared with examination one day earlier. Dictated by: Dictated on workstation # [id number]
[2019-02-28 16:20] VITALS: BP 174/79
[2019-02-28] MEDS: TAMSULOSIN 0.4 MG (FLOMAX) CAP PO SCH (18:34)
[2019-02-28 20:50] VITALS: BP 158/72
[2019-02-28] MEDS ORDERED: cefTRIAXone 1,000 MG IV (ROCEPHIN) VIAL ONE (22:57)
[2019-02-28] MEDS ORDERED: WATER (STERILE) FOR INJECTION 10 ML ONE (22:58)
[2019-02-28] MEDS: cefTRIAXone FOR IV USE 1,000 MG in WATER (STERILE) FOR INJECTION 10 ML IV SCH (23:06)
[2019-03-01 00:05] VITALS: BP 174/74
[2019-03-01] MEDS: NS IV 1000 ML 1,000 ML IV SCH (02:34)
[2019-03-01 04:00] VITALS: BP 177/70
--- NOTE | 2019-03-01 05:55 | Progress Note (SOAP) ---
Subjective Date Seen by a Provider: Mar 01, 2019 Time Seen by a Provider: 05:53 Subjective/Events-last exam Fwup pneumonia, HTN, Lymphoma. Still with productive cough but feeling better. Focused Exam Lactate Level 02/26/19 18:45: Lactic Acid Level 1.73 Objective Exam Vital Signs Date Time Temp Pulse Resp B/P (MAP) Pulse Ox O2 Delivery O2 Flow Rate FiO2 03/01/19 04:00 97.8 60 20 177/70 (105) Room Air 03/01/19 01:00 53 03/01/19 00:05 97.6 56 18 174/74 (107) 92 02/28/19 22:30 93 Room Air 2.00 02/28/19 20:50 97.5 59 18 158/72 (100) 93 Room Air 02/28/19 19:00 61 02/28/19 18:52 Room Air 02/28/19 16:20 97.6 55 18 174/79 (110) 95 Room Air 02/28/19 12:50 54 02/28/19 12:00 98.5 59 18 157/72 (100) 96 Nasal Cannula 2.00 02/28/19 08:00 Room Air 02/28/19 08:00 98.2 59 18 163/74 (103) 95 Nasal Cannula 2.00 02/28/19 07:00 59 I & O 03/01/19 07:00 Intake Total 2920 ml Output Total 1775 ml Balance 1145 ml Capillary Refill : Less Than 3 SecondsLess Than 3 Seconds General Appearance: No Apparent Distress Neck: Supple Respiratory: Crackles (lower lungs), Decreased Breath Sounds, Rhonci (lower lungs) Gastrointestinal: normal bowel sounds, non tender, soft Extremity: Non Tender, No Calf Tenderness, No Pedal Edema Neurologic/Psychiatric: Alert, Oriented x3 Skin: Warm/Dry Results Lab Microbiology 02/26/19 Blood Culture - Preliminary, Resulted No growth 02/26/19 Influenza Types A,B Antigen (ARIANNA) - Final, Complete Assessment/Plan Assessment/Plan Assess & Plan/Chief Complaint 1. Pneumonia--repeat CXR in AM 2. Hypertension--continue current meds 3. Lymphoma--sees Dr. Matson Clinical Quality Measures DVT/VTE Risk/Contraindication: Risk Factor Score Per Nursin RFS Level Per Nursing on Admit: 2=Moderate ROSE VALENCIA DO Mar 01, 2019 05:55
[2019-03-01 05:59] LABS: BASOPHILS % (AUTO) 0 % (0-10); EOSINOPHILS # (AUTO) 0.1 10^3/uL (0.0-0.3); EOSINOPHILS % (AUTO) 2 % (0-10); HEMATOCRIT 38 % (40-54); HEMOGLOBIN 12.7 G/DL (13.3-17.7); LYMPHOCYTES % (AUTO) 10 % (12-44); MEAN CORPUSCULAR HEMOGLOBIN 31 PG (25-34); MEAN CORPUSCULAR HGB CONC 33 G/DL (32-36); MEAN CORPUSCULAR VOLUME 93 FL (80-99); MEAN PLATELET VOLUME 10.5 FL (7.4-10.4); MONOCYTES # (AUTO) 0.7 X 10^3 (0.0-1.0); MONOCYTES % (AUTO) 7 % (0-12); NEUTROPHILS # (AUTO) 7.4 X 10^3 (1.8-7.8); NEUTROPHILS % (AUTO) 81 % (42-75); PLATELET COUNT 195 10^3/uL (130-400); RED CELL DISTRIBUTION WIDTH 13.9 % (10.0-14.5); WHITE BLOOD COUNT 9.1 10^3/uL (4.3-11.0)
[2019-03-01 06:21] LABS: BUN/CREATININE RATIO 13; CARBON DIOXIDE 21 MMOL/L (21-32); CHLORIDE 110 MMOL/L (98-107); CREATININE SERUM 0.78 MG/DL (0.60-1.30); GFR ESTIMATED > 60; GLUCOSE 80 MG/DL (70-105); POTASSIUM 3.8 MMOL/L (3.6-5.0); SODIUM 139 MMOL/L (135-145)
[2019-03-01 08:00] VITALS: BP 179/81
[2019-03-01] MEDS: ATENOLOL 25 MG (TENORMIN) TAB PO SCH (08:13)
[2019-03-01] MEDS: FINASTERIDE (PROSCAR) 5 MG TAB PO SCH (08:14)
[2019-03-01] MEDS: amLODIPine 2.5MG (NORVASC) TAB PO SCH (08:14)
[2019-03-01] MEDS: PANTOPRAZOLE 20 MG TABLET (PROTONIX) PO SCH (08:14)
[2019-03-01] MEDS: ASPIRIN 81 MG CHEW (CHILDREN'S ASA) PO SCH (08:15)
[2019-03-01] MEDS: ALLOPURINOL 300 MG (ZYLOPRIM) TAB PO SCH (08:21)
[2019-03-01 12:00] VITALS: BP 138/70
--- NOTE | 2019-03-01 14:15 | Diagnostic Imaging Report ---
INDICATION: Dyspnea. Comparison made with prior examination from 02/28/2019. FINDINGS: There is cardiomegaly. There is some venous congestion. There are patchy bibasilar infiltrates. There is no pleural effusion or pneumothorax. Mediastinum is unremarkable. IMPRESSION: Patchy bibasilar infiltrates. Cardiomegaly and mild central pulmonary venous congestion. Dictated by: Dictated on workstation # [id number]
--- NOTE | 2019-03-01 15:07 | Progress Note-Cardiology ---
Cardiology SOAP Progress Note Subjective: No new symptoms Shortness of breath and malaise are slowly improving Wants tele off Objective: I&O/Vital Signs 03/01/19 03/01/19 03/01/19 03/01/19 04:00 07:00 08:00 12:00 Temp 97.8 97.9 98.4 Pulse 60 52 62 59 Resp 20 20 20 B/P (MAP) 177/70 (105) 179/81 (113) 138/70 (92) Pulse Ox 92 94 O2 Delivery Room Air Room Air Room Air 03/01/19 13:00 Pulse 61 03/01/19 00:00 Intake Total 1920 ml Output Total 1775 ml Balance 145 ml Weight (Pounds): 179 Weight (Ounces): 0.0 Weight (Calculated Kilograms): 81.156492 Constitutional: AAO x 3, well-developed, well-nourished Respiratory: No accessory muscle use; other (good bilat air entry) Cardiovascular: regular rate-rhythm, S1 and S2, systolic murmur (faint ALEKSANDAR at card base) Gastrointestional: No tender; soft; No guarding, No rebound; audible bowel sounds Extremities: No clubbing, No cyanosis, No significant edema Neurologic/Psychiatric: oriented x 3, grossly intact, power is 5/5 both on sides Skin: No rash on exposed areas, No ulcerations on exposed areas Results/Procedures: Labs Laboratory Tests 03/01/19 05:48: White Blood Count 9.1, Red Blood Count 4.11L, Hemoglobin 12.7L, Hematocrit 38L, Mean Corpuscular Volume 93, Mean Corpuscular Hemoglobin 31, Mean Corpuscular Hemoglobin Concent 33, Red Cell Distribution Width 13.9, Platelet Count 195, Mean Platelet Volume 10.5H, Neutrophils (%) (Auto) 81H, Lymphocytes (%) (Auto) 10L, Monocytes (%) (Auto) 7, Eosinophils (%) (Auto) 2, Basophils (%) (Auto) 0, Neutrophils # (Auto) 7.4, Lymphocytes # (Auto) 1.0, Monocytes # (Auto) 0.7, Eosinophils # (Auto) 0.1, Basophils # (Auto) 0.0, Sodium Level 139, Potassium Level 3.8, Chloride Level 110H, Carbon Dioxide Level 21, Anion Gap 8, Blood Urea Nitrogen 10, Creatinine 0.78, Estimat Glomerular Filtration Rate > 60, BUN/ Creatinine Ratio 13, Glucose Level 80, Calcium Level 9.0 Microbiology 02/26/19 Blood Culture - Preliminary, Resulted No growth 02/28/19 Gram Stain - Final, Resulted 02/28/19 Sputum Culture - Preliminary, Resulted Usual upper respiratory angelia Laboratory Tests 02/28/19 05:30 03/01/19 05:48 A/P: Assessment: Shortness of breath and sinus tach, likely due to ac bronchitis/pneumonia Minimal type 2 [place] (minimal troponin elevation) due to fever, tachycardia, and hypertension Hypertension Bradycardia on high-dose beta-tahir H/o lymphoma Plan: * Treat systemic infection * D/c tele * We have spoken with him and his fam in detail and answered questions COMPA GIPSON MD FACP FAC CCDS Mar 01, 2019 15:07
[2019-03-01 16:50] VITALS: BP 118/73
[2019-03-01] MEDS: TAMSULOSIN 0.4 MG (FLOMAX) CAP PO SCH (18:06)
[2019-03-01 20:45] VITALS: BP 158/73
[2019-03-01] MEDS ORDERED: WATER (STERILE) FOR INJECTION 10 ML ONE (21:19)
[2019-03-01] MEDS ORDERED: cefTRIAXone 1,000 MG IV (ROCEPHIN) VIAL ONE (21:19)
[2019-03-01] MEDS: cefTRIAXone FOR IV USE 1,000 MG in WATER (STERILE) FOR INJECTION 10 ML IV SCH (21:46)
[2019-03-02 00:15] VITALS: BP 167/70
[2019-03-02 04:00] VITALS: BP 168/70
[2019-03-02 05:37] LABS: BASOPHILS % (AUTO) 0 % (0-10); EOSINOPHILS # (AUTO) 0.1 10^3/uL (0.0-0.3); EOSINOPHILS % (AUTO) 2 % (0-10); HEMATOCRIT 40 % (40-54); HEMOGLOBIN 13.8 G/DL (13.3-17.7); LYMPHOCYTES # (AUTO) 0.8 X 10^3 (1.0-4.0); LYMPHOCYTES % (AUTO) 12 % (12-44); MEAN CORPUSCULAR HEMOGLOBIN 31 PG (25-34); MEAN CORPUSCULAR HGB CONC 34 G/DL (32-36); MEAN CORPUSCULAR VOLUME 91 FL (80-99); MEAN PLATELET VOLUME 10.1 FL (7.4-10.4); MONOCYTES # (AUTO) 0.5 X 10^3 (0.0-1.0); MONOCYTES % (AUTO) 7 % (0-12); NEUTROPHILS # (AUTO) 5.6 X 10^3 (1.8-7.8); NEUTROPHILS % (AUTO) 79 % (42-75); PLATELET COUNT 199 10^3/uL (130-400); RED CELL DISTRIBUTION WIDTH 13.6 % (10.0-14.5); WHITE BLOOD COUNT 7.1 10^3/uL (4.3-11.0)
[2019-03-02 06:00] LABS: ALANINE AMINOTRANSFERASE 10 U/L (0-55); ALBUMIN 3.5 GM/DL (3.2-4.5); ALKALINE PHOSPHATASE 71 U/L (40-136); BILIRUBIN,TOTAL 0.8 MG/DL (0.1-1.0); BUN/CREATININE RATIO 13; CALCIUM 9.3 MG/DL (8.5-10.1); CARBON DIOXIDE 22 MMOL/L (21-32); CHLORIDE 106 MMOL/L (98-107); CREATININE SERUM 0.79 MG/DL (0.60-1.30); GFR ESTIMATED > 60; GLUCOSE 85 MG/DL (70-105); POTASSIUM 4.1 MMOL/L (3.6-5.0); SODIUM 137 MMOL/L (135-145); TOTAL PROTEIN 6.5 GM/DL (6.4-8.2)
[2019-03-02 08:00] VITALS: BP 176/78
[2019-03-02] MEDS: FINASTERIDE (PROSCAR) 5 MG TAB PO SCH (08:18)
[2019-03-02] MEDS: amLODIPine 2.5MG (NORVASC) TAB PO SCH (08:18)
[2019-03-02] MEDS: ATENOLOL 25 MG (TENORMIN) TAB PO SCH (08:18)
[2019-03-02] MEDS: ASPIRIN 81 MG CHEW (CHILDREN'S ASA) PO SCH (08:18)
[2019-03-02] MEDS: PANTOPRAZOLE 20 MG TABLET (PROTONIX) PO SCH (08:18)
[2019-03-02] MEDS: ALLOPURINOL 300 MG (ZYLOPRIM) TAB PO SCH (08:18)
--- NOTE | 2019-03-02 10:26 | Progress Note-Cardiology ---
Cardiology SOAP Progress Note Subjective: No cp or palp or syncope. Wishes to go home Objective: I&O/Vital Signs 03/02/19 03/02/19 00:15 04:00 Temp 97.9 98.0 Pulse 68 62 Resp 18 18 B/P (MAP) 167/70 (102) 168/70 (102) Pulse Ox 93 92 O2 Delivery Room Air Room Air 03/02/19 00:00 Intake Total 750 ml Output Total 1325 ml Balance -575 ml Weight (Pounds): 179 Weight (Ounces): 0.0 Weight (Calculated Kilograms): 81.931826 Constitutional: AAO x 3, well-developed, well-nourished Respiratory: No accessory muscle use; other (good bilat air entry) Cardiovascular: regular rate-rhythm, S1 and S2, systolic murmur (faint ALEKSANDAR at card base) Gastrointestional: No tender; soft; No guarding, No rebound; audible bowel sounds Extremities: No clubbing, No cyanosis, No significant edema Neurologic/Psychiatric: oriented x 3, grossly intact, power is 5/5 both on sides Skin: No rash on exposed areas, No ulcerations on exposed areas Results/Procedures: Labs Laboratory Tests 03/02/19 05:30: White Blood Count 7.1, Red Blood Count 4.43, Hemoglobin 13.8, Hematocrit 40, Mean Corpuscular Volume 91, Mean Corpuscular Hemoglobin 31, Mean Corpuscular Hemoglobin Concent 34, Red Cell Distribution Width 13.6, Platelet Count 199, Mean Platelet Volume 10.1, Neutrophils (%) (Auto) 79H, Lymphocytes (%) (Auto) 12 , Monocytes (%) (Auto) 7, Eosinophils (%) (Auto) 2, Basophils (%) (Auto) 0, Neutrophils # (Auto) 5.6, Lymphocytes # (Auto) 0.8L, Monocytes # (Auto) 0.5, Eosinophils # (Auto) 0.1, Basophils # (Auto) 0.0, Sodium Level 137, Potassium Level 4.1, Chloride Level 106, Carbon Dioxide Level 22, Anion Gap 9, Blood Urea Nitrogen 10, Creatinine 0.79, Estimat Glomerular Filtration Rate > 60, BUN/ Creatinine Ratio 13, Glucose Level 85, Calcium Level 9.3, Corrected Calcium 9.7 , Total Bilirubin 0.8, Aspartate Amino Transf (AST/SGOT) 13, Alanine Aminotransferase (ALT/SGPT) 10, Alkaline Phosphatase 71, Total Protein 6.5, Albumin 3.5 Microbiology 02/26/19 Blood Culture - Preliminary, Resulted No growth 02/28/19 Gram Stain - Final, Resulted 02/28/19 Sputum Culture - Preliminary, Resulted Usual upper respiratory angelia Laboratory Tests 03/01/19 05:48 03/02/19 05:30 A/P: Assessment: Shortness of breath and sinus tach, likely due to ac bronchitis/pneumonia Minimal type 2 [place] (minimal troponin elevation) due to fever, tachycardia, and hypertension Hypertension Bradycardia on high-dose beta-tahir H/o lymphoma Plan: * Treat systemic infection * Ok to d/c from cardiac standpoint * Outpt f/u advised COMPA GIPSON MD FACP FAC CCDS Mar 02, 2019 10:26
--- NOTE | 2019-03-02 11:00 | NUR ---
SULLIVAN REMOVED ORDERED, KERA WELL
--- NOTE | 2019-03-02 11:16 | Progress Note (SOAP) ---
Subjective Date Seen by a Provider: Mar 02, 2019 Time Seen by a Provider: 09:45 Subjective/Events-last exam Fwup pneumonia, HTN, Lymphoma. Ongoing productive cough but improving. Still with jose catheter in place. Objective Exam Vital Signs Date Time Temp Pulse Resp B/P (MAP) Pulse Ox O2 Delivery O2 Flow Rate FiO2 03/02/19 08:00 97.0 54 20 176/78 (110) 93 Room Air 03/02/19 08:00 94 Room Air 03/02/19 04:00 98.0 62 18 168/70 (102) 92 Room Air 03/02/19 00:15 97.9 68 18 167/70 (102) 93 Room Air 03/01/19 20:45 97.8 58 18 158/73 (101) 93 Room Air 03/01/19 20:00 Room Air 03/01/19 16:50 97.9 63 18 118/73 (88) 94 Room Air 03/01/19 13:00 61 03/01/19 12:00 98.4 59 20 138/70 (92) 94 Room Air I & O 03/02/19 07:00 Intake Total 1400 ml Output Total 2625 ml Balance -1225 ml Capillary Refill : Less Than 3 SecondsLess Than 3 Seconds General Appearance: No Apparent Distress Neck: Supple Respiratory: Lungs Clear, Decreased Breath Sounds (bases) Cardiovascular: Regular Rate, Rhythm, Systolic Murmur Gastrointestinal: normal bowel sounds, non tender, soft Extremity: Non Tender, No Calf Tenderness, No Pedal Edema Neurologic/Psychiatric: Alert, Oriented x3 Results Lab Laboratory Tests 03/02/19 05:30: White Blood Count 7.1, Red Blood Count 4.43, Hemoglobin 13.8, Hematocrit 40, Mean Corpuscular Volume 91, Mean Corpuscular Hemoglobin 31, Mean Corpuscular Hemoglobin Concent 34, Red Cell Distribution Width 13.6, Platelet Count 199, Mean Platelet Volume 10.1, Neutrophils (%) (Auto) 79H, Lymphocytes (%) (Auto) 12 , Monocytes (%) (Auto) 7, Eosinophils (%) (Auto) 2, Basophils (%) (Auto) 0, Neutrophils # (Auto) 5.6, Lymphocytes # (Auto) 0.8L, Monocytes # (Auto) 0.5, Eosinophils # (Auto) 0.1, Basophils # (Auto) 0.0, Sodium Level 137, Potassium Level 4.1, Chloride Level 106, Carbon Dioxide Level 22, Anion Gap 9, Blood Urea Nitrogen 10, Creatinine 0.79, Estimat Glomerular Filtration Rate > 60, BUN/ Creatinine Ratio 13, Glucose Level 85, Calcium Level 9.3, Corrected Calcium 9.7 , Total Bilirubin 0.8, Aspartate Amino Transf (AST/SGOT) 13, Alanine Aminotransferase (ALT/SGPT) 10, Alkaline Phosphatase 71, Total Protein 6.5, Albumin 3.5 Microbiology 02/26/19 Blood Culture - Preliminary, Resulted No growth 02/28/19 Gram Stain - Final, Resulted 02/28/19 Sputum Culture - Preliminary, Resulted Usual upper respiratory angelia Assessment/Plan Assessment/Plan Assess & Plan/Chief Complaint 1. Pneumonia--improved 2. Hypertension--continue current meds 3. Lymphoma--sees Dr. Matson 4. DC jose catheter in anticipation of DC tomorrow--patient states has had problems in past urinating after having a catheter Clinical Quality Measures DVT/VTE Risk/Contraindication: Risk Factor Score Per Nursin RFS Level Per Nursing on Admit: 2=Moderate ROSE VALENCAI DO Mar 02, 2019 11:16
[2019-03-02 12:00] VITALS: BP 159/87
[2019-03-02 16:00] VITALS: BP 145/81
--- NOTE | 2019-03-02 16:28 | NUR ---
VOIDED 200ML WITHOUT DIFFICULTY AFTER CATH REMOVED
[2019-03-02] MEDS: TAMSULOSIN 0.4 MG (FLOMAX) CAP PO SCH (17:51)
[2019-03-02 20:00] VITALS: BP 145/70
[2019-03-02] MEDS ORDERED: WATER (STERILE) FOR INJECTION 10 ML ONE (21:29)
[2019-03-02] MEDS ORDERED: cefTRIAXone 1,000 MG IV (ROCEPHIN) VIAL ONE (21:29)
[2019-03-02] MEDS: cefTRIAXone FOR IV USE 1,000 MG in WATER (STERILE) FOR INJECTION 10 ML IV SCH (21:44)
[2019-03-03 00:20] VITALS: BP 162/60
[2019-03-03 04:00] VITALS: BP 168/72
[2019-03-03 08:00] VITALS: BP 135/72
[2019-03-03 08:28] LABS: BASOPHILS % (AUTO) 0 % (0-10); EOSINOPHILS # (AUTO) 0.1 10^3/uL (0.0-0.3); EOSINOPHILS % (AUTO) 1 % (0-10); HEMATOCRIT 44 % (40-54); LYMPHOCYTES % (AUTO) 13 % (12-44); MEAN CORPUSCULAR HEMOGLOBIN 31 PG (25-34); MEAN CORPUSCULAR HGB CONC 34 G/DL (32-36); MEAN CORPUSCULAR VOLUME 90 FL (80-99); MEAN PLATELET VOLUME 10.1 FL (7.4-10.4); MONOCYTES # (AUTO) 0.8 X 10^3 (0.0-1.0); MONOCYTES % (AUTO) 10 % (0-12); NEUTROPHILS # (AUTO) 6.2 X 10^3 (1.8-7.8); NEUTROPHILS % (AUTO) 77 % (42-75); PLATELET COUNT 272 10^3/uL (130-400); RED CELL DISTRIBUTION WIDTH 13.8 % (10.0-14.5); WHITE BLOOD COUNT 8.2 10^3/uL (4.3-11.0)
[2019-03-03 08:45] LABS: BUN/CREATININE RATIO 12; CALCIUM 9.8 MG/DL (8.5-10.1); CARBON DIOXIDE 24 MMOL/L (21-32); CHLORIDE 103 MMOL/L (98-107); CREATININE SERUM 0.85 MG/DL (0.60-1.30); GFR ESTIMATED > 60; GLUCOSE 92 MG/DL (70-105); POTASSIUM 4.1 MMOL/L (3.6-5.0); SODIUM 136 MMOL/L (135-145)
--- NOTE | 2019-03-03 08:47 | Diagnostic Imaging Report ---
PA and lateral chest at 8:08. Indication: Tachypnea There is a better inspiratory effort on this study than on the prior exam of 03/01/2019. Allowing for this technical factor, the heart size is within normal limits. The central pulmonary vascularity does not seem quite as prominent as on the prior exam. There are still a few crowded bronchovascular markings in the left infrahilar region and the lateral view does show that there is a small amount of fluid still present in both lung bases. The upper lungs are clear. The mediastinum is not widened. The osseous structures are intact. Impression: The appearance of the chest has improved since the prior exam as there does seem be less pulmonary congestion. There is still some residual density in the left infrahilar region as well small bilateral pleural effusions A followup study would be recommend for continued evaluation. Dictated by: Dictated on workstation # [id number]
[2019-03-03] MEDS: ALLOPURINOL 300 MG (ZYLOPRIM) TAB PO SCH (09:20)
[2019-03-03] MEDS: PANTOPRAZOLE 20 MG TABLET (PROTONIX) PO SCH (09:20)
[2019-03-03] MEDS: FINASTERIDE (PROSCAR) 5 MG TAB PO SCH (09:20)
[2019-03-03] MEDS: ATENOLOL 25 MG (TENORMIN) TAB PO SCH (09:20)
[2019-03-03] MEDS: ASPIRIN 81 MG CHEW (CHILDREN'S ASA) PO SCH (09:21)
[2019-03-03] MEDS: amLODIPine 2.5MG (NORVASC) TAB PO SCH (09:21)
[2019-03-03] MEDS ORDERED: CEFD300C3 PO (09:29)
[2019-03-03 10:15] VITALS: BP 135/72
--- NOTE | 2019-03-04 07:24 | Discharge Summary ---
Diagnosis/Chief Complaint Date of Admission Feb 27, 2019 at 10:45 Date of Discharge Mar 03, 2019 at 10:50 Discharge Date: Mar 03, 2019 Discharge Time: 07:19 Discharge Diagnosis Short of air Malignant hypertension. Tachycardia. Elevated troponin. Myocardial infarction type II. Lymphoma. Pneumonia. Febrile. Small B-cell lymphoma. Essential hypertension. Bradycardia. Leukocytosis. Reason Hospital Visit brought patient out to emergency room. Patient short of breath During the day had chest pain. Patient has history of lymphoma. Treated by oncologist. Patient to start chemotherapy today. Patient has malignant hypertension. Patient has tachycardia. Last night troponin minimally elevated. White blood cell count 17,000. Patient felt he had respiratory infection. Patient has congestion in his chest area Patient running an elevated temperature of 101 Discharge Summary Procedures None Consultations Cardiology Discharge Physical Examination Allergies: Coded Allergies: Fish Containing Products (Unverified Allergy, Unknown, 02/27/19) FROM UNCODED ALLERGIES prochlorperazine (Unverified Allergy, Unknown, 02/26/19) Vitals & I&Os Vital Signs Date Time Temp Pulse Resp B/P (MAP) Pulse Ox O2 Delivery O2 Flow Rate FiO2 03/03/19 10:15 65 18 135/72 91 Room Air 03/03/19 08:00 2.00 03/03/19 08:00 97.3 Hospital Course Patient felt better. Patient excited to go home. Patient to be seen in office Labs (last 24 hrs) Laboratory Tests 02/26/19 18:45: White Blood Count 15.2H, Red Blood Count 4.94, Hemoglobin 15.3, Hematocrit 45, Mean Corpuscular Volume 90, Mean Corpuscular Hemoglobin 31, Mean Corpuscular Hemoglobin Concent 34, Red Cell Distribution Width 13.6, Platelet Count 228, Mean Platelet Volume 10.5H, Neutrophils (%) (Auto) 87H, Lymphocytes (%) (Auto) 7L, Monocytes (%) (Auto) 6, Eosinophils (%) (Auto) 0, Basophils (%) (Auto) 0, Neutrophils # (Auto) 13.1H, Lymphocytes # (Auto) 1.1, Monocytes # (Auto) 1.0, Eosinophils # (Auto) 0.0, Basophils # (Auto) 0.0, Neutrophils % (Manual) 89, Lymphocytes % (Manual) 8, Monocytes % (Manual) 2, Eosinophils % (Manual) 0, Basophils % (Manual) 0, Band Neutrophils 1, Blood Morphology Comment NORMAL, Prothrombin Time 13.6, INR Comment 1.0, Activated Partial Thromboplast Time 29, D-Dimer 0.59H, Sodium Level 139, Potassium Level 4.3, Chloride Level 100, Carbon Dioxide Level 28, Anion Gap 11, Blood Urea Nitrogen 15, Creatinine 1.03, Estimat Glomerular Filtration Rate > 60, BUN/Creatinine Ratio 15, Glucose Level 102, Lactic Acid Level 1.73, Calcium Level 10.3H, Corrected Calcium , Magnesium Level 2.0, Total Bilirubin 0.9, Aspartate Amino Transf (AST/SGOT) 23, Alanine Aminotransferase (ALT/SGPT) 16, Alkaline Phosphatase 103, Total Creatine Kinase 209H, Creatine Kinase MB 6.6*H, Troponin I < 0.028, B-Type Natriuretic Peptide 111.9H, Total Protein 7.7, Albumin 4.6H 02/26/19 19:02: Urine Color YELLOW, Urine Clarity CLEAR, Urine pH 8, Urine Specific Olpe 1.010L, Urine Protein 1+H, Urine Glucose (UA) NEGATIVE, Urine Ketones NEGATIVE, Urine Nitrite NEGATIVE, Urine Bilirubin NEGATIVE, Urine Urobilinogen 1, Urine Leukocyte Esterase NEGATIVE, Urine RBC (Auto) NEGATIVE, Urine RBC NONE, Urine WBC RARE, Urine Squamous Epithelial Cells 0-2, Urine Crystals NONE, Urine Bacteria NEGATIVE, Urine Casts NONE, Urine Mucus NEGATIVE, Urine Culture Indicated NO 02/26/19 19:25: Blood Gas Puncture Site LEFT RADIAL, Blood Gas Patient Temperature 99.5, Arterial Blood pH 7.47H, Arterial Blood Partial Pressure CO2 37, Arterial Blood Partial Pressure O2 82, Arterial Blood HCO3 26, Arterial Blood Total CO2 27.1, Arterial Blood Oxygen Saturation 93L, Arterial Blood Base Excess 2.6H, Cresencio Test POSITIVE, Blood Gas Ventilator Setting NO, Blood Gas Inspired Oxygen 2L 02/27/19 01:05: White Blood Count 17.7H, Red Blood Count 4.45, Hemoglobin 13.8, Hematocrit 41, Mean Corpuscular Volume 91, Mean Corpuscular Hemoglobin 31, Mean Corpuscular Hemoglobin Concent 34, Red Cell Distribution Width 13.4, Platelet Count 203, Mean Platelet Volume 9.7, Neutrophils (%) (Auto) 87H, Lymphocytes (%) (Auto) 4L , Monocytes (%) (Auto) 9, Eosinophils (%) (Auto) 0, Basophils (%) (Auto) 0, Neutrophils # (Auto) 15.4H, Lymphocytes # (Auto) 0.8L, Monocytes # (Auto) 1.6H, Eosinophils # (Auto) 0.0, Basophils # (Auto) 0.0, Sodium Level 136, Potassium Level 3.9, Chloride Level 102, Carbon Dioxide Level 24, Anion Gap 10, Blood Urea Nitrogen 16, Creatinine 0.99, Estimat Glomerular Filtration Rate > 60, BUN/ Creatinine Ratio 16, Glucose Level 99, Calcium Level 9.1, Corrected Calcium 9.3 , Total Bilirubin 0.9, Aspartate Amino Transf (AST/SGOT) 17, Alanine Aminotransferase (ALT/SGPT) 12, Alkaline Phosphatase 75, Troponin I 0.053H, Total Protein 6.0L, Albumin 3.7 02/27/19 12:12: Troponin I 0.031H 02/28/19 05:30: Troponin I 0.082H, White Blood Count 10.9, Red Blood Count 4.00L, Hemoglobin 12.4L, Hematocrit 37L, Mean Corpuscular Volume 93, Mean Corpuscular Hemoglobin 31, Mean Corpuscular Hemoglobin Concent 34, Red Cell Distribution Width 14.1, Platelet Count 196, Mean Platelet Volume 10.5H, Neutrophils (%) (Auto) 84H, Lymphocytes (%) (Auto) 8L, Monocytes (%) (Auto) 7, Eosinophils (%) (Auto) 1, Basophils (%) (Auto) 0, Neutrophils # (Auto) 9.2H, Lymphocytes # (Auto) 0.9L, Monocytes # (Auto) 0.8, Eosinophils # (Auto) 0.1, Basophils # (Auto) 0.0, Sodium Level 140, Potassium Level 3.8, Chloride Level 111H, Carbon Dioxide Level 22, Anion Gap 7, Blood Urea Nitrogen 15, Creatinine 0.86, Estimat Glomerular Filtration Rate > 60, BUN/Creatinine Ratio 17, Glucose Level 84, Calcium Level 8.8, Corrected Calcium 9.4, Total Bilirubin 0.6, Aspartate Amino Transf (AST/SGOT) 15, Alanine Aminotransferase (ALT/SGPT) 9, Alkaline Phosphatase 68, Total Protein 5.7L, Albumin 3.2 03/01/19 05:48: White Blood Count 9.1, Red Blood Count 4.11L, Hemoglobin 12.7L, Hematocrit 38L, Mean Corpuscular Volume 93, Mean Corpuscular Hemoglobin 31, Mean Corpuscular Hemoglobin Concent 33, Red Cell Distribution Width 13.9, Platelet Count 195, Mean Platelet Volume 10.5H, Neutrophils (%) (Auto) 81H, Lymphocytes (%) (Auto) 10L, Monocytes (%) (Auto) 7, Eosinophils (%) (Auto) 2, Basophils (%) (Auto) 0, Neutrophils # (Auto) 7.4, Lymphocytes # (Auto) 1.0, Monocytes # (Auto) 0.7, Eosinophils # (Auto) 0.1, Basophils # (Auto) 0.0, Sodium Level 139, Potassium Level 3.8, Chloride Level 110H, Carbon Dioxide Level 21, Anion Gap 8, Blood Urea Nitrogen 10, Creatinine 0.78, Estimat Glomerular Filtration Rate > 60, BUN/ Creatinine Ratio 13, Glucose Level 80, Calcium Level 9.0 03/02/19 05:30: White Blood Count 7.1, Red Blood Count 4.43, Hemoglobin 13.8, Hematocrit 40, Mean Corpuscular Volume 91, Mean Corpuscular Hemoglobin 31, Mean Corpuscular Hemoglobin Concent 34, Red Cell Distribution Width 13.6, Platelet Count 199, Mean Platelet Volume 10.1, Neutrophils (%) (Auto) 79H, Lymphocytes (%) (Auto) 12 , Monocytes (%) (Auto) 7, Eosinophils (%) (Auto) 2, Basophils (%) (Auto) 0, Neutrophils # (Auto) 5.6, Lymphocytes # (Auto) 0.8L, Monocytes # (Auto) 0.5, Eosinophils # (Auto) 0.1, Basophils # (Auto) 0.0, Sodium Level 137, Potassium Level 4.1, Chloride Level 106, Carbon Dioxide Level 22, Anion Gap 9, Blood Urea Nitrogen 10, Creatinine 0.79, Estimat Glomerular Filtration Rate > 60, BUN/ Creatinine Ratio 13, Glucose Level 85, Calcium Level 9.3, Corrected Calcium 9.7 , Total Bilirubin 0.8, Aspartate Amino Transf (AST/SGOT) 13, Alanine Aminotransferase (ALT/SGPT) 10, Alkaline Phosphatase 71, Total Protein 6.5, Albumin 3.5 03/03/19 08:20: White Blood Count 8.2, Red Blood Count 4.89, Hemoglobin 15.0, Hematocrit 44, Mean Corpuscular Volume 90, Mean Corpuscular Hemoglobin 31, Mean Corpuscular Hemoglobin Concent 34, Red Cell Distribution Width 13.8, Platelet Count 272, Mean Platelet Volume 10.1, Neutrophils (%) (Auto) 77H, Lymphocytes (%) (Auto) 13 , Monocytes (%) (Auto) 10, Eosinophils (%) (Auto) 1, Basophils (%) (Auto) 0, Neutrophils # (Auto) 6.2, Lymphocytes # (Auto) 1.0, Monocytes # (Auto) 0.8, Eosinophils # (Auto) 0.1, Basophils # (Auto) 0.0, Sodium Level 136, Potassium Level 4.1, Chloride Level 103, Carbon Dioxide Level 24, Anion Gap 9, Blood Urea Nitrogen 10, Creatinine 0.85, Estimat Glomerular Filtration Rate > 60, BUN/ Creatinine Ratio 12, Glucose Level 92, Calcium Level 9.8 Microbiology 02/26/19 Blood Culture - Preliminary, Resulted No growth 02/28/19 Gram Stain - Final, Complete 02/28/19 Sputum Culture - Final, Complete Usual upper respiratory angelia Laboratory Tests 02/26/19 18:45 02/27/19 01:05 02/28/19 05:30 03/01/19 05:48 03/02/19 05:30 03/03/19 08:20 Pending Labs Microbiology Date/Time Source Procedure Growth Status 02/26/19 19:10 Peripheral Lt Ac Blood Culture - Preliminary No growth Resulted 02/26/19 18:45 Peripheral Right Wrist Blood Culture - Preliminary No growth Resulted 02/28/19 10:03 Sputum Expectorated Gram Stain - Final Complete 02/28/19 10:03 Sputum Culture - Final Usual upper respiratory angelia Complete 02/26/19 18:45 Nasopharynx Influenza Types A,B Antigen (ARIANNA) - Final Complete Laboratory Tests 02/26/19 18:45: White Blood Count 15.2, Red Blood Count 4.94, Hemoglobin 15.3, Hematocrit 45, Mean Corpuscular Volume 90, Mean Corpuscular Hemoglobin 31, Mean Corpuscular Hemoglobin Concent 34, Red Cell Distribution Width 13.6, Platelet Count 228, Mean Platelet Volume 10.5, Neutrophils (%) (Auto) 87, Lymphocytes (%) (Auto) 7, Monocytes (%) (Auto) 6, Eosinophils (%) (Auto) 0, Basophils (%) (Auto) 0, Neutrophils # (Auto) 13.1, Lymphocytes # (Auto) 1.1, Monocytes # (Auto) 1.0, Eosinophils # (Auto) 0.0, Basophils # (Auto) 0.0, Neutrophils % (Manual) 89, Lymphocytes % (Manual) 8, Monocytes % (Manual) 2, Eosinophils % (Manual) 0, Basophils % (Manual) 0, Band Neutrophils 1, Blood Morphology Comment NORMAL, Prothrombin Time 13.6, INR Comment 1.0, Activated Partial Thromboplast Time 29, D-Dimer 0.59, Sodium Level 139, Potassium Level 4.3, Chloride Level 100, Carbon Dioxide Level 28, Anion Gap 11, Blood Urea Nitrogen 15, Creatinine 1.03, Estimat Glomerular Filtration Rate > 60, BUN/Creatinine Ratio 15, Glucose Level 102, Lactic Acid Level 1.73, Calcium Level 10.3, Corrected Calcium , Magnesium Level 2.0, Total Bilirubin 0.9, Aspartate Amino Transf (AST/SGOT) 23, Alanine Aminotransferase (ALT/SGPT) 16, Alkaline Phosphatase 103, Total Creatine Kinase 209, Creatine Kinase MB 6.6, Troponin I < 0.028, B-Type Natriuretic Peptide 111.9, Total Protein 7.7, Albumin 4.6 02/26/19 19:02: Urine Color YELLOW, Urine Clarity CLEAR, Urine pH 8, Urine Specific Olpe 1.010, Urine Protein 1+, Urine Glucose (UA) NEGATIVE, Urine Ketones NEGATIVE, Urine Nitrite NEGATIVE, Urine Bilirubin NEGATIVE, Urine Urobilinogen 1, Urine Leukocyte Esterase NEGATIVE, Urine RBC (Auto) NEGATIVE, Urine RBC NONE, Urine WBC RARE, Urine Squamous Epithelial Cells 0-2, Urine Crystals NONE, Urine Bacteria NEGATIVE, Urine Casts NONE, Urine Mucus NEGATIVE, Urine Culture Indicated NO 02/26/19 19:25: Blood Gas Puncture Site LEFT RADIAL, Blood Gas Patient Temperature 99.5, Arterial Blood pH 7.47, Arterial Blood Partial Pressure CO2 37, Arterial Blood Partial Pressure O2 82, Arterial Blood HCO3 26, Arterial Blood Total CO2 27.1, Arterial Blood Oxygen Saturation 93, Arterial Blood Base Excess 2.6, Cresencio Test POSITIVE, Blood Gas Ventilator Setting NO, Blood Gas Inspired Oxygen 2L 02/27/19 01:05: White Blood Count 17.7, Red Blood Count 4.45, Hemoglobin 13.8, Hematocrit 41, Mean Corpuscular Volume 91, Mean Corpuscular Hemoglobin 31, Mean Corpuscular Hemoglobin Concent 34, Red Cell Distribution Width 13.4, Platelet Count 203, Mean Platelet Volume 9.7, Neutrophils (%) (Auto) 87, Lymphocytes (%) (Auto) 4, Monocytes (%) (Auto) 9, Eosinophils (%) (Auto) 0, Basophils (%) (Auto) 0, Neutrophils # (Auto) 15.4, Lymphocytes # (Auto) 0.8, Monocytes # (Auto) 1.6, Eosinophils # (Auto) 0.0, Basophils # (Auto) 0.0, Sodium Level 136, Potassium Level 3.9, Chloride Level 102, Carbon Dioxide Level 24, Anion Gap 10, Blood Urea Nitrogen 16, Creatinine 0.99, Estimat Glomerular Filtration Rate > 60, BUN/ Creatinine Ratio 16, Glucose Level 99, Calcium Level 9.1, Corrected Calcium 9.3 , Total Bilirubin 0.9, Aspartate Amino Transf (AST/SGOT) 17, Alanine Aminotransferase (ALT/SGPT) 12, Alkaline Phosphatase 75, Troponin I 0.053, Total Protein 6.0, Albumin 3.7 02/27/19 12:12: Troponin I 0.031 02/28/19 05:30: Troponin I 0.082, White Blood Count 10.9, Red Blood Count 4.00, Hemoglobin 12.4 , Hematocrit 37, Mean Corpuscular Volume 93, Mean Corpuscular Hemoglobin 31, Mean Corpuscular Hemoglobin Concent 34, Red Cell Distribution Width 14.1, Platelet Count 196, Mean Platelet Volume 10.5, Neutrophils (%) (Auto) 84, Lymphocytes (%) (Auto) 8, Monocytes (%) (Auto) 7, Eosinophils (%) (Auto) 1, Basophils (%) (Auto) 0, Neutrophils # (Auto) 9.2, Lymphocytes # (Auto) 0.9, Monocytes # (Auto) 0.8, Eosinophils # (Auto) 0.1, Basophils # (Auto) 0.0, Sodium Level 140, Potassium Level 3.8, Chloride Level 111, Carbon Dioxide Level 22, Anion Gap 7, Blood Urea Nitrogen 15, Creatinine 0.86, Estimat Glomerular Filtration Rate > 60, BUN/Creatinine Ratio 17, Glucose Level 84, Calcium Level 8.8, Corrected Calcium 9.4, Total Bilirubin 0.6, Aspartate Amino Transf (AST/ SGOT) 15, Alanine Aminotransferase (ALT/SGPT) 9, Alkaline Phosphatase 68, Total Protein 5.7, Albumin 3.2 03/01/19 05:48: White Blood Count 9.1, Red Blood Count 4.11, Hemoglobin 12.7, Hematocrit 38, Mean Corpuscular Volume 93, Mean Corpuscular Hemoglobin 31, Mean Corpuscular Hemoglobin Concent 33, Red Cell Distribution Width 13.9, Platelet Count 195, Mean Platelet Volume 10.5, Neutrophils (%) (Auto) 81, Lymphocytes (%) (Auto) 10 , Monocytes (%) (Auto) 7, Eosinophils (%) (Auto) 2, Basophils (%) (Auto) 0, Neutrophils # (Auto) 7.4, Lymphocytes # (Auto) 1.0, Monocytes # (Auto) 0.7, Eosinophils # (Auto) 0.1, Basophils # (Auto) 0.0, Sodium Level 139, Potassium Level 3.8, Chloride Level 110, Carbon Dioxide Level 21, Anion Gap 8, Blood Urea Nitrogen 10, Creatinine 0.78, Estimat Glomerular Filtration Rate > 60, BUN/ Creatinine Ratio 13, Glucose Level 80, Calcium Level 9.0 03/02/19 05:30: White Blood Count 7.1, Red Blood Count 4.43, Hemoglobin 13.8, Hematocrit 40, Mean Corpuscular Volume 91, Mean Corpuscular Hemoglobin 31, Mean Corpuscular Hemoglobin Concent 34, Red Cell Distribution Width 13.6, Platelet Count 199, Mean Platelet Volume 10.1, Neutrophils (%) (Auto) 79, Lymphocytes (%) (Auto) 12 , Monocytes (%) (Auto) 7, Eosinophils (%) (Auto) 2, Basophils (%) (Auto) 0, Neutrophils # (Auto) 5.6, Lymphocytes # (Auto) 0.8, Monocytes # (Auto) 0.5, Eosinophils # (Auto) 0.1, Basophils # (Auto) 0.0, Sodium Level 137, Potassium Level 4.1, Chloride Level 106, Carbon Dioxide Level 22, Anion Gap 9, Blood Urea Nitrogen 10, Creatinine 0.79, Estimat Glomerular Filtration Rate > 60, BUN/ Creatinine Ratio 13, Glucose Level 85, Calcium Level 9.3, Corrected Calcium 9.7 , Total Bilirubin 0.8, Aspartate Amino Transf (AST/SGOT) 13, Alanine Aminotransferase (ALT/SGPT) 10, Alkaline Phosphatase 71, Total Protein 6.5, Albumin 3.5 03/03/19 08:20: White Blood Count 8.2, Red Blood Count 4.89, Hemoglobin 15.0, Hematocrit 44, Mean Corpuscular Volume 90, Mean Corpuscular Hemoglobin 31, Mean Corpuscular Hemoglobin Concent 34, Red Cell Distribution Width 13.8, Platelet Count 272, Mean Platelet Volume 10.1, Neutrophils (%) (Auto) 77, Lymphocytes (%) (Auto) 13 , Monocytes (%) (Auto) 10, Eosinophils (%) (Auto) 1, Basophils (%) (Auto) 0, Neutrophils # (Auto) 6.2, Lymphocytes # (Auto) 1.0, Monocytes # (Auto) 0.8, Eosinophils # (Auto) 0.1, Basophils # (Auto) 0.0, Sodium Level 136, Potassium Level 4.1, Chloride Level 103, Carbon Dioxide Level 24, Anion Gap 9, Blood Urea Nitrogen 10, Creatinine 0.85, Estimat Glomerular Filtration Rate > 60, BUN/ Creatinine Ratio 12, Glucose Level 92, Calcium Level 9.8 Discharge Home Medications: Active Scripts Active Cefdinir 300 Mg Capsule 300 Mg PO BID 5 Days Reported Omeprazole 20 Mg Tablet.dr 20 Mg PO DAILY Finasteride 5 Mg Tablet 5 Mg PO DAILY Flomax (Tamsulosin HCl) 0.4 Mg Cap 0.4 Mg PO 1800 Allopurinol 300 Mg Tablet 300 Mg PO DAILY Amlodipine Besylate 5 Mg Tablet 2.5 Mg PO DAILY TAKES 1/2 (5MG) TABLET Atenolol 25 Mg Tablet 25 Mg PO DAILY Instructions to patient/family Please see electronic discharge instructions given to patient. Clinical Quality Measures DVT/VTE Risk/Contraindication: Risk Factor Score Per Nursin RFS Level Per Nursing on Admit: 2=Moderate ANGEL ZARATE DO Mar 04, 2019 07:24
== END 2019-03-03 10:50 | disposition home or self-care (01) | DRG 193 ==
LOC: EDUNIT# 18:39 → ER 18:41 → ICU 19:52 → OBSVTOIN 02-27 10:45 → 4TH 02-27 10:49
PROVIDERS: ADMIT Family Medicine; ATTEND Family Medicine
DX: J18.9 Pneumonia, unspecified organism (principal); I21.A1 Myocardial infarction type 2; C83.00 Small cell B-cell lymphoma, unspecified site; R00.0 Tachycardia, unspecified; I10 Essential (primary) hypertension; J45.909 Unspecified asthma, uncomplicated; R00.1 Bradycardia, unspecified; M19.91 Primary osteoarthritis, unspecified site; Z87.891 Personal history of nicotine dependence; Z92.21 Personal history of antineoplastic chemotherapy; Z87.11 Personal history of peptic ulcer disease; Z98.1 Arthrodesis status; Z96.641 Presence of right artificial hip joint; Z96.652 Presence of left artificial knee joint
CPT/HCPCS: 36415; 36600; 71045; 71046; 71275; 80048; 80053; 81000; 82550; 82553; 82805; 83605; 83735; 83880; 84484; 85007; 85025; 85027; 85379; 85610; 85730; 87040; 87070; 87205; 87804; 93005; 93041; 93306; 94640; 94664; 96361; 96372; 96374; 96375

== ENCOUNTER 2019-04-08 08:40 | Outpatient (RCR) | payer MEDICARE ==
[2019-03-18 09:00] LABS: BASOPHILS % (AUTO) 0 % (0-10); EOSINOPHILS # (AUTO) 0.2 10^3/uL (0.0-0.3); EOSINOPHILS % (AUTO) 5 % (0-10); HEMATOCRIT 44 % (40-54); HEMOGLOBIN 14.6 G/DL (13.3-17.7); LYMPHOCYTES # (AUTO) 1.5 X 10^3 (1.0-4.0); LYMPHOCYTES % (AUTO) 31 % (12-44); MEAN CORPUSCULAR HEMOGLOBIN 31 PG (25-34); MEAN CORPUSCULAR HGB CONC 34 G/DL (32-36); MEAN CORPUSCULAR VOLUME 92 FL (80-99); MEAN PLATELET VOLUME 10.2 FL (7.4-10.4); MONOCYTES # (AUTO) 0.8 X 10^3 (0.0-1.0); MONOCYTES % (AUTO) 16 % (0-12); NEUTROPHILS # (AUTO) 2.3 X 10^3 (1.8-7.8); NEUTROPHILS % (AUTO) 49 % (42-75); PLATELET COUNT 258 10^3/uL (130-400); RED CELL DISTRIBUTION WIDTH 13.8 % (10.0-14.5); WHITE BLOOD COUNT 4.8 10^3/uL (4.3-11.0)
[2019-03-18 09:17] LABS: ALANINE AMINOTRANSFERASE 14 U/L (0-55); ALBUMIN 4.1 GM/DL (3.2-4.5); ALKALINE PHOSPHATASE 107 U/L (40-136); BILIRUBIN,TOTAL 0.7 MG/DL (0.1-1.0); BUN/CREATININE RATIO 12; CALCIUM 9.5 MG/DL (8.5-10.1); CARBON DIOXIDE 27 MMOL/L (21-32); CHLORIDE 103 MMOL/L (98-107); CREATININE SERUM 1.05 MG/DL (0.60-1.30); GFR ESTIMATED > 60; GLUCOSE 81 MG/DL (70-105); POTASSIUM 3.9 MMOL/L (3.6-5.0); SODIUM 139 MMOL/L (135-145)
[~2019-04-08] VITALS: Ht 163.8 cm; Wt 80.7 kg
[~2019-04-08 08:40] MED LIST changes: +ACETAMINOPHEN 500 MG TAB (TYLENOL) CANCER CTR ONE; +ACETAMINOPHEN 500 MG TAB (TYLENOL) CANCER CTR PO PRN; +ALLOPURINOL 300 MG; +AMLODIPINE BESYLATE 5MG TABLET; +CALC-6 PO; +CEFD300C3 PO; +FINA5TAB6 PO; +FINASTERIDE 5 MG; +NS IV 500 ML (CANCER CENTER) 500 ML ONE; +NS IV 500 ML (CANCER CENTER) IV SCH; +TAMS0.4C98 PO; +TAMSULOSIN 0.4 MG; +diphenhydrAMINE 25 MG TAB (BENADRYL) CANCER CENTER PO ONE; +diphenhydrAMINE 25 MG TAB (BENADRYL) CANCER CENTER PO SCH; +riTUXimab 500 MG, riTUXimab FOR IV INJ CONC 200 MG in NS (IVPB) CANCER CENTER 163 ML IV SCH
== END 2019-06-16 | disposition home or self-care (01) ==
LOC: ONC 08:40
PROVIDERS: ATTEND Internal Medicine Hematology & Oncology
DX: Z51.11 Encounter for antineoplastic chemotherapy (principal); C88.0 Waldenstrom macroglobulinemia; D64.9 Anemia, unspecified; I10 Essential (primary) hypertension; Z87.891 Personal history of nicotine dependence; Z79.899 Other long term (current) drug therapy
CPT/HCPCS: 36415; 80053; 82232; 82784; 83615; 85025; 96413; J9312

== ENCOUNTER → 2019-04-15 | Outpatient (CLI) | payer MEDICARE ==
[~2019-04-15] MED LIST changes: -ACETAMINOPHEN 500 MG TAB (TYLENOL) CANCER CTR ONE; -ACETAMINOPHEN 500 MG TAB (TYLENOL) CANCER CTR PO PRN; +CATHETER FLUSH 10 ML SYR IV PRN; -NS IV 500 ML (CANCER CENTER) 500 ML ONE; -NS IV 500 ML (CANCER CENTER) IV SCH; +REGADENOSON 0.4 MG/5 ML SYR (LEXISCAN) IV ONE; -diphenhydrAMINE 25 MG TAB (BENADRYL) CANCER CENTER PO ONE; -diphenhydrAMINE 25 MG TAB (BENADRYL) CANCER CENTER PO SCH; -riTUXimab 500 MG, riTUXimab FOR IV INJ CONC 200 MG in NS (IVPB) CANCER CENTER 163 ML IV SCH
[2019-04-15 09:48] VITALS: BP 196/85
[2019-04-15 09:50] VITALS: BP 158/77
== END ==
LOC: CARD 07:41
PROVIDERS: ATTEND Internal Medicine Cardiovascular Disease
DX: I21.A1 Myocardial infarction type 2 (principal); I10 Essential (primary) hypertension; C88.0 Waldenstrom macroglobulinemia; R53.1 Weakness
CPT/HCPCS: 78452; 93017

== ENCOUNTER 2019-09-02 09:12 | Outpatient (RCR) | payer MEDICARE ==
[~2019-09-02 09:12] MED LIST changes: -CATHETER FLUSH 10 ML SYR IV PRN; -REGADENOSON 0.4 MG/5 ML SYR (LEXISCAN) IV ONE
[2019-09-02 09:25] LABS: BASOPHILS % (AUTO) 0 % (0-10); EOSINOPHILS # (AUTO) 0.2 10^3/uL (0.0-0.3); EOSINOPHILS % (AUTO) 2 % (0-10); HEMATOCRIT 49 % (40-54); HEMOGLOBIN 16.4 G/DL (13.3-17.7); LYMPHOCYTES % (AUTO) 25 % (12-44); MEAN CORPUSCULAR HEMOGLOBIN 30 PG (25-34); MEAN CORPUSCULAR HGB CONC 34 G/DL (32-36); MEAN CORPUSCULAR VOLUME 89 FL (80-99); MEAN PLATELET VOLUME 10.8 FL (7.4-10.4); MONOCYTES # (AUTO) 0.7 X 10^3 (0.0-1.0); MONOCYTES % (AUTO) 8 % (0-12); NEUTROPHILS # (AUTO) 5.1 X 10^3 (1.8-7.8); NEUTROPHILS % (AUTO) 64 % (42-75); PLATELET COUNT 247 10^3/uL (130-400); RED CELL DISTRIBUTION WIDTH 14.3 % (10.0-14.5)
[2019-09-02 09:42] LABS: ALANINE AMINOTRANSFERASE 18 U/L (0-55); ALBUMIN 4.3 GM/DL (3.2-4.5); ALKALINE PHOSPHATASE 106 U/L (40-136); BILIRUBIN,TOTAL 1.2 MG/DL (0.1-1.0); BUN/CREATININE RATIO 13; CALCIUM 9.5 MG/DL (8.5-10.1); CARBON DIOXIDE 26 MMOL/L (21-32); CHLORIDE 103 MMOL/L (98-107); CREATININE SERUM 1.04 MG/DL (0.60-1.30); GFR ESTIMATED > 60; GLUCOSE 101 MG/DL (70-105); POTASSIUM 4.4 MMOL/L (3.6-5.0); SODIUM 140 MMOL/L (135-145); TOTAL PROTEIN 6.7 GM/DL (6.4-8.2)
--- NOTE | 2019-09-09 12:20 | HISTORY AND PHYSICAL ---
DATE OF SERVICE: ATTENDING PHYSICIAN: Dr. Mcknight and Dr. Singleton. PROCEDURE DATE: 09/26/2019. HISTORY OF PRESENT ILLNESS: The patient is a 78-year-old male who is referred over to us in need of an EGD and colonoscopy. The patient reports that for the last two weeks, he has been having trouble swallowing and reports that some foods as well as medication do get stuck in his throat. 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 He also reports that his last colonoscopy was 30 years ago and he did have some polyps that were removed as far as he remember were benign. He reports since that time he denies any blood in the stool and denies any family history of colon cancer. He denies any diarrhea, constipation or any abdominal pain. PAST MEDICAL HISTORY: Gastroesophageal reflux disease, gout, BPH, peptic ulcer disease, lymphoma. PAST SURGICAL HISTORY: Right total hip replacement in 2007 and then revision in 2007, left total knee replacement in 2012, lower back fusion in 1995. ALLERGIES: COMPAZINE AND FISH. MEDICATIONS: Amlodipine 5 mg, atenolol 25 mg, allopurinol 300 mg, finasteride 5 mg, tamsulosin 0.4 mg, omeprazole 20 mg, aspirin 81 mg. SOCIAL HISTORY: Previous smoker 1-1/2 packs per day for 3 years, quit 50 years ago, previous for chewing tobacco daily, one beer. FAMILY HISTORY: Father, hypertension. Maternal grandmother, breast cancer and myocardial infarction. VITAL SIGNS: Blood pressure is 138/70. Current weight is 176.1, 5 feet 8 inches. REVIEW OF SYSTEMS: Well-nourished male, in no acute distress. He is not experiencing any shortness of breath or difficulty breathing. No chest pain, palpitations or diaphoresis. No nausea or vomiting. He does report episodes of dysphagia. He denies any abdominal pain. No diarrhea or constipation. No red blood per rectum. No dark tarry stools. No fever or chills. No recent inadvertent weight loss. All other review of systems negative. PHYSICAL EXAMINATION: CHEST: Clear. LUNGS: Good breath sounds bilaterally. HEART: Regular, no murmurs. EXTREMITIES: No lower extremity edema. Negative Homans sign. HEENT: No scleral icterus. No cervical lymphadenopathy. ABDOMEN: Soft, nontender, nondistended. SKIN: Warm, dry and pink. NEUROLOGIC: Awake, alert and oriented x3. ASSESSMENT AND PLAN: A 78-year-old male with dysphagia as well as a history of peptic ulcer disease and history of polyps, who is in need of an EGD and a colonoscopy. The risks and benefits of the procedure as well as the procedure and home care instructions were explained to the patient. The patient verbalized understanding of instructions and agrees to this plan. At this time, we will proceed with scheduling the patient for an EGD and a screening colonoscopy. Job ID: [id number] DocumentID: [id number] Dictated Date: 09/09/2019 09:36:18 Polysomnographer Date: 09/09/2019 12:19:43 Dictated By: ROMARIO HAJI APRN
[2019-09-26] MEDS ORDERED: PANT40TA2 PO (10:39)
== END 2019-12-01 | disposition home or self-care (01) ==
LOC: ONC 09:12
PROVIDERS: ATTEND Internal Medicine Hematology & Oncology
DX: C88.0 Waldenstrom macroglobulinemia (principal); D64.9 Anemia, unspecified; I10 Essential (primary) hypertension; C83.00 Small cell B-cell lymphoma, unspecified site; Z79.899 Other long term (current) drug therapy; Z87.891 Personal history of nicotine dependence; Z92.21 Personal history of antineoplastic chemotherapy; Z86.010 Personal history of colon polyps
CPT/HCPCS: 36415; 80053; 82232; 82784; 83615; 85025; 99213

== ENCOUNTER 2019-09-19 09:43 | Outpatient (CLI) | payer MEDICARE ==
[~2019-09-19] VITALS: Ht 172.7 cm; Wt 81.8 kg
== END 2019-09-19 10:36 | disposition home or self-care (01) ==
LOC: PREOP 09:43
PROVIDERS: ATTEND Surgery
DX: Z01.818 Encounter for other preprocedural examination (principal)

== ENCOUNTER 2020-02-10 08:54 | Outpatient (RCR) | payer MEDICARE ==
[2020-02-03 09:23] LABS: BASOPHILS % (AUTO) 0 % (0-10); EOSINOPHILS # (AUTO) 0.1 10^3/uL (0.0-0.3); EOSINOPHILS % (AUTO) 2 % (0-10); HEMATOCRIT 47 % (40-54); HEMOGLOBIN 15.9 G/DL (13.3-17.7); LYMPHOCYTES # (AUTO) 1.5 X 10^3 (1.0-4.0); LYMPHOCYTES % (AUTO) 23 % (12-44); MEAN CORPUSCULAR HEMOGLOBIN 30 PG (25-34); MEAN CORPUSCULAR HGB CONC 34 G/DL (32-36); MEAN CORPUSCULAR VOLUME 89 FL (80-99); MEAN PLATELET VOLUME 10.5 FL (7.4-10.4); MONOCYTES # (AUTO) 0.7 X 10^3 (0.0-1.0); MONOCYTES % (AUTO) 10 % (0-12); NEUTROPHILS # (AUTO) 4.3 X 10^3 (1.8-7.8); NEUTROPHILS % (AUTO) 66 % (42-75); PLATELET COUNT 255 10^3/uL (130-400); RED CELL DISTRIBUTION WIDTH 13.8 % (10.0-14.5); WHITE BLOOD COUNT 6.5 10^3/uL (4.3-11.0)
[2020-02-03 09:41] LABS: ALANINE AMINOTRANSFERASE 12 U/L (0-55); ALBUMIN 4.2 GM/DL (3.2-4.5); ALKALINE PHOSPHATASE 111 U/L (40-136); BILIRUBIN,TOTAL 0.9 MG/DL (0.1-1.0); BUN/CREATININE RATIO 14; CALCIUM 9.3 MG/DL (8.5-10.1); CARBON DIOXIDE 25 MMOL/L (21-32); CHLORIDE 105 MMOL/L (98-107); GFR ESTIMATED > 60; GLUCOSE 85 MG/DL (70-105); POTASSIUM 4.5 MMOL/L (3.6-5.0); SODIUM 139 MMOL/L (135-145); TOTAL PROTEIN 6.5 GM/DL (6.4-8.2)
[~2020-02-10 08:54] MED LIST changes: -TAMS0.4C98 PO; +TMSL.4C PO
== END 2020-05-03 | disposition home or self-care (01) ==
LOC: ONC 08:54
PROVIDERS: ATTEND Internal Medicine Hematology & Oncology
DX: C88.0 Waldenstrom macroglobulinemia (principal); D64.9 Anemia, unspecified; I10 Essential (primary) hypertension; C83.00 Small cell B-cell lymphoma, unspecified site; Z79.899 Other long term (current) drug therapy; Z87.891 Personal history of nicotine dependence; Z92.21 Personal history of antineoplastic chemotherapy; Z86.010 Personal history of colon polyps
CPT/HCPCS: 36415; 80053; 82232; 82784; 83615; 85025; 99213

== ENCOUNTER 2020-08-10 08:47 | Outpatient (RCR) | payer MEDICARE ==
[2020-08-03 08:41] LABS: BASOPHILS % (AUTO) 0 % (0-10); EOSINOPHILS # (AUTO) 0.1 10^3/uL (0.0-0.3); EOSINOPHILS % (AUTO) 2 % (0-10); HEMATOCRIT 48 % (40-54); HEMOGLOBIN 15.9 G/DL (13.3-17.7); LYMPHOCYTES # (AUTO) 2.1 X 10^3 (1.0-4.0); LYMPHOCYTES % (AUTO) 26 % (12-44); MEAN CORPUSCULAR HEMOGLOBIN 30 PG (25-34); MEAN CORPUSCULAR HGB CONC 33 G/DL (32-36); MEAN CORPUSCULAR VOLUME 89 FL (80-99); MEAN PLATELET VOLUME 10.3 FL (7.4-10.4); MONOCYTES # (AUTO) 0.8 X 10^3 (0.0-1.0); MONOCYTES % (AUTO) 9 % (0-12); NEUTROPHILS # (AUTO) 5.2 X 10^3 (1.8-7.8); NEUTROPHILS % (AUTO) 64 % (42-75); PLATELET COUNT 256 10^3/uL (130-400); WHITE BLOOD COUNT 8.1 10^3/uL (4.3-11.0)
[2020-08-03 09:02] LABS: ALANINE AMINOTRANSFERASE 16 U/L (0-55); ALBUMIN 4.2 GM/DL (3.2-4.5); ALKALINE PHOSPHATASE 108 U/L (40-136); BILIRUBIN,TOTAL 0.8 MG/DL (0.1-1.0); BUN/CREATININE RATIO 12; CALCIUM 9.2 MG/DL (8.5-10.1); CARBON DIOXIDE 28 MMOL/L (21-32); CHLORIDE 103 MMOL/L (98-107); CREATININE SERUM 0.94 MG/DL (0.60-1.30); GFR ESTIMATED > 60; GLUCOSE 105 MG/DL (70-105); POTASSIUM 3.8 MMOL/L (3.6-5.0); SODIUM 140 MMOL/L (135-145); TOTAL PROTEIN 6.7 GM/DL (6.4-8.2)
[~2020-08-10 08:47] MED LIST changes: +AMLO-250 PO; -AMLO5TAB9 PO; -CALC-6 PO; +CALC1TAB84 PO
== END 2020-11-01 | disposition home or self-care (01) ==
LOC: ONC 08:47
PROVIDERS: ATTEND Internal Medicine Hematology & Oncology
DX: C83.00 Small cell B-cell lymphoma, unspecified site (principal); D64.9 Anemia, unspecified; R13.10 Dysphagia, unspecified; I10 Essential (primary) hypertension; Z79.899 Other long term (current) drug therapy; Z87.891 Personal history of nicotine dependence; Z92.21 Personal history of antineoplastic chemotherapy; Z86.010 Personal history of colon polyps; Z87.19 Personal history of other diseases of the digestive system; Z96.649 Presence of unspecified artificial hip joint; Z96.659 Presence of unspecified artificial knee joint; Z98.1 Arthrodesis status; Z98.890 Other specified postprocedural states
CPT/HCPCS: 80053; 82232; 82784; 83615; 85025; 99213

== ENCOUNTER 2021-02-08 09:15 | Outpatient (RCR) | payer MEDICARE ==
[2021-02-01 08:33] LABS: BASOPHILS % (AUTO) 0 % (0-10); EOSINOPHILS # (AUTO) 0.1 10^3/uL (0.0-0.3); EOSINOPHILS % (AUTO) 1 % (0-10); HEMATOCRIT 46 % (40-54); LYMPHOCYTES # (AUTO) 1.3 10^3/uL (1.0-4.0); LYMPHOCYTES % (AUTO) 19 % (12-44); MEAN CORPUSCULAR HEMOGLOBIN 30 pg (25-34); MEAN CORPUSCULAR HGB CONC 33 g/dL (32-36); MEAN CORPUSCULAR VOLUME 92 fL (80-99); MEAN PLATELET VOLUME 10.6 fL (9.0-12.2); MONOCYTES # (AUTO) 0.9 10^3/uL (0.0-1.0); MONOCYTES % (AUTO) 13 % (0-12); NEUTROPHILS # (AUTO) 4.5 10^3/uL (1.8-7.8); NEUTROPHILS % (AUTO) 66 % (42-75); PLATELET COUNT 277 10^3/uL (130-400); WHITE BLOOD COUNT 6.9 10^3/uL (4.3-11.0)
[2021-02-01 08:52] LABS: ALANINE AMINOTRANSFERASE 24 U/L (0-55); ALKALINE PHOSPHATASE 116 U/L (40-136); BILIRUBIN,TOTAL 0.8 MG/DL (0.1-1.0); BUN/CREATININE RATIO 11; CARBON DIOXIDE 26 MMOL/L (21-32); CHLORIDE 103 MMOL/L (98-107); CREATININE SERUM 0.89 MG/DL (0.60-1.30); GFR ESTIMATED > 60; GLUCOSE 101 MG/DL (70-105); POTASSIUM 3.7 MMOL/L (3.6-5.0); SODIUM 140 MMOL/L (135-145); TOTAL PROTEIN 6.6 GM/DL (6.4-8.2)
== END 2021-05-02 | disposition home or self-care (01) ==
LOC: ONC 09:15
PROVIDERS: ATTEND Internal Medicine Hematology & Oncology
DX: C88.0 Waldenstrom macroglobulinemia (principal); K52.9 Noninfective gastroenteritis and colitis, unspecified; K92.1 Melena; E87.6 Hypokalemia; I25.2 Old myocardial infarction; Z92.21 Personal history of antineoplastic chemotherapy
CPT/HCPCS: 80053; 82232; 82784; 85025; 99213

== ENCOUNTER 2021-08-10 09:10 | Outpatient (RCR) | payer MEDICARE ==
[2021-08-04 08:35] LABS: BASOPHILS % (AUTO) 0 % (0-10); EOSINOPHILS # (AUTO) 0.1 10^3/uL (0.0-0.3); EOSINOPHILS % (AUTO) 2 % (0-10); HEMATOCRIT 47 % (40-54); HEMOGLOBIN 15.4 g/dL (13.3-17.7); LYMPHOCYTES # (AUTO) 2.3 10^3/uL (1.0-4.0); LYMPHOCYTES % (AUTO) 29 % (12-44); MEAN CORPUSCULAR HEMOGLOBIN 30 pg (25-34); MEAN CORPUSCULAR HGB CONC 33 g/dL (32-36); MEAN CORPUSCULAR VOLUME 94 fL (80-99); MEAN PLATELET VOLUME 10.2 fL (9.0-12.2); MONOCYTES # (AUTO) 1.1 10^3/uL (0.0-1.0); MONOCYTES % (AUTO) 14 % (0-12); NEUTROPHILS # (AUTO) 4.3 10^3/uL (1.8-7.8); NEUTROPHILS % (AUTO) 54 % (42-75); PLATELET COUNT 306 10^3/uL (130-400)
[2021-08-04 09:07] LABS: ALBUMIN 4.3 GM/DL (3.2-4.5); BILIRUBIN,TOTAL 0.9 MG/DL (0.1-1.0); CREATININE SERUM 0.85 MG/DL (0.60-1.30); POTASSIUM 4.3 MMOL/L (3.6-5.0); TOTAL PROTEIN 7.3 GM/DL (6.4-8.2)
[2021-08-08 14:38] LABS: IMMUNOFIX PATH REPORT NUMBER Complete (Complete)
== END 2021-11-02 | disposition home or self-care (01) ==
LOC: ONC 09:10
PROVIDERS: ATTEND Internal Medicine Hematology & Oncology
DX: C88.0 Waldenstrom macroglobulinemia (principal); D61.818 Other pancytopenia; D64.9 Anemia, unspecified; K52.9 Noninfective gastroenteritis and colitis, unspecified; K92.1 Melena; E87.6 Hypokalemia; I25.2 Old myocardial infarction; Z92.21 Personal history of antineoplastic chemotherapy
CPT/HCPCS: 80053; 82232; 82784; 83883; 84155; 84165; 85025; 86334; 99213

== ENCOUNTER 2022-02-14 09:00 | Outpatient (RCR) | payer MEDICARE ==
[2022-02-07 08:52] LABS: BASOPHILS % (AUTO) 0 % (0-10); EOSINOPHILS # (AUTO) 0.2 10^3/uL (0.0-0.3); EOSINOPHILS % (AUTO) 2 % (0-10); HEMATOCRIT 47 % (40-54); HEMOGLOBIN 15.3 g/dL (13.3-17.7); LYMPHOCYTES # (AUTO) 1.5 10^3/uL (1.0-4.0); LYMPHOCYTES % (AUTO) 17 % (12-44); MEAN CORPUSCULAR HEMOGLOBIN 30 pg (25-34); MEAN CORPUSCULAR HGB CONC 33 g/dL (32-36); MEAN CORPUSCULAR VOLUME 93 fL (80-99); MEAN PLATELET VOLUME 10.4 fL (9.0-12.2); MONOCYTES % (AUTO) 12 % (0-12); NEUTROPHILS % (AUTO) 68 % (42-75); PLATELET COUNT 337 10^3/uL (130-400); WHITE BLOOD COUNT 8.8 10^3/uL (4.3-11.0)
[2022-02-07 09:11] LABS: ALBUMIN 4.3 GM/DL (3.2-4.5); BILIRUBIN,TOTAL 0.9 MG/DL (0.1-1.0); CALCIUM 9.7 MG/DL (8.5-10.1); CREATININE SERUM 0.87 MG/DL (0.60-1.30); TOTAL PROTEIN 7.7 GM/DL (6.4-8.2)
== END 2022-02-23 | disposition home or self-care (01) ==
LOC: ONC 09:00
PROVIDERS: ATTEND Internal Medicine Hematology & Oncology
DX: C88.0 Waldenstrom macroglobulinemia (principal); E66.9 Obesity, unspecified; Z92.21 Personal history of antineoplastic chemotherapy
CPT/HCPCS: 36415; 80053; 82232; 82784; 83615; 83883; 84155; 84165; 85025; 99213

== ENCOUNTER → 2022-08-31 | Outpatient (CLI) | payer MEDICARE ==
[~2022-08-31] MED LIST changes: +OMEP20TA56 PO; -OMEP20TA7 PO
== END ==
LOC: CARD 09:00
PROVIDERS: ATTEND Internal Medicine Cardiovascular Disease
DX: I08.1 Rheumatic disorders of both mitral and tricuspid valves (principal); I45.3 Trifascicular block
CPT/HCPCS: 93225; 93226; C8929; 93306